=== PATIENT | male | born 1945 | race Caucasian/White ===

== ENCOUNTER 2018-02-07 08:45 | Day surgery (SDC) | payer MEDICARE, OTHER ==
[~2018-02-07] VITALS: Ht 188 cm; Wt 61.2 kg
[~2018-02-07 08:45] MED LIST: ACET325 PO; ACIDOPHILUS PO; ALBU3IS INH; ALBU90OI6 INH; ALLO100 PO; ALPR.25 PO; AMOX875; AMOX875 PO; ASCO250CH PO; ASCO500 PO; ASPI81CH PO; ATOR10; ATOR10 PO; AZIT500 PO; BISA10S PR; BUME1 PO; BUME2 PO; CAL PO; CEFA500 PO; CEPH500 PO; CHOL10002 PO; CIPDEXSU LEFTEAR; CITA20 PO; CRUTCH3 USE; CVS DISPOSABLE399 ML; CYCL10 PO; Coumadin3 MG PO; DIPATR PO; DOXA2 PO; Dulcolax Stool100 MG PO; ENOX100I SC; ENOX120I SQ; ENOX40I SQ; ESOM20; ESOM20 PO; FENT25TP TOP; FERR325 PO; FISH1000 PO; FLORASTOR PO; FLUC100 PO; FLUT.05NI; FURO100EL GT; FURO20; FURO20 PO; FURO40 PO; GABA100 PO; GENTAMICIN; GLIM2 PO; GLIP5 PO; GLUCAGON IM; HYDACE10B PO; HYDACE5; HYDACE7.5 PO; INLYTA1 MG PO; INLYTA5 MG PO; INSLI100I SC; INSN100I SC; INSUASPI; INSUASPI SC; INSULANI SC; INSULIN NPH SQ; LACT10SY PO; LEVFLO500; LEVFLO500 PO; LEVO750 PO; LIDO2L MT; LISI10 PO; LISI20; LOPE2C PO; LORA.5 PO; LORA10ER PO; LORA2L PO; LUBRICATING; MAGGLU250; MAGGLU250 PO; MENTHOL; METF500; METO2.5 PO; METO5A PO; MIDO5 PO; MOM PO; MORP20ER PO; MULVITMIND PO; NYST100SU MT; Novolog100 UNIT/2 SC; OMEG1CAP30 PO; OMEP20ER PO; OXYACE10; OXYACE5T PO; OXYC1L PO; OXYC5 PO; POLY17UD; POLY17UD PO; POTA10T; POTA10T PO; POTA20LUD GT; POTA20LUD PO; POTCHL10ER PO; PROM25 PO; RXONDA4ODT MM; RXPROM25 PO; SENN8.8S8 PO; SIME40L PO; SPIR25 PO; SUTENT; SUTENT PO; TAMS.4ER; TAMS.4ER PO; TYLENOL; WARF10; WARF10 PO; WARF2 PO; WARF4 PO; WARF5; WARF5 PO; WARF6 PO; WARF7.5; WARF7.5 PO; WARFARIN; ZINC OXIDE; ZINC15 PO; Zithromax250 MG PO; [UNRECOGNIZED DRUG - REMARK]
[2018-02-07] MEDS ORDERED: [UNRECOGNIZED DRUG - OTHER] IM (10:06)
[2018-02-07] MEDS ORDERED: MIRT15 PO (10:07)
== END 2018-02-07 13:27 | disposition home or self-care (01) ==
LOC: ORSCMMR 08:45 → ORD 10:45 → ORSCMMR 10:45
PROVIDERS: Surgery
PROC: 02HV33Z Insertion of Infusion Device into Superior Vena Cava, Percutaneous Approach (ICD-10-PCS; principal; 2018-02-07 10:45)
DX: C64.2 Malignant neoplasm of left kidney, except renal pelvis (principal); C77.5 Secondary and unspecified malignant neoplasm of intrapelvic lymph nodes; I25.2 Old myocardial infarction; E11.9 Type 2 diabetes mellitus without complications; J44.9 Chronic obstructive pulmonary disease, unspecified; Z87.891 Personal history of nicotine dependence; Z79.899 Other long term (current) drug therapy
CPT/HCPCS: 77001; 82947; C1788; J0690; J1642; J3010; J7120

== ENCOUNTER 2018-06-03 09:55 | Day surgery (SDC) | payer MEDICARE, OTHER ==
[~2018-06-03] VITALS: Ht 185.4 cm; Wt 61.2 kg
[~2018-06-03 09:55] MED LIST changes: +Desyrel50 MG PO; +Flonase 0.05% N16 GM; +Ipratr-Albuterol3 ML INH; +MIRT15 PO; +Norco 10-325 T1 EACH PO; +Novolin R100 UNIT/M SC; +PREDNISONE; +SIMV10 PO; +[UNRECOGNIZED DRUG - OTHER] IM
== END 2018-06-03 23:38 | disposition home or self-care (01) ==
LOC: ORSCMMR 09:55 → ORD 09:55 → ORSCMMR 09:56 → ORD 12:00
PROVIDERS: Surgery
PROC: 0DJ08ZZ Inspection of Upper Intestinal Tract, Via Natural or Artificial Opening Endoscopic (ICD-10-PCS; principal; 2018-06-03 10:00)
DX: R13.10 Dysphagia, unspecified (principal); C64.2 Malignant neoplasm of left kidney, except renal pelvis; C78.7 Secondary malignant neoplasm of liver and intrahepatic bile duct; E11.9 Type 2 diabetes mellitus without complications; Z86.718 Personal history of other venous thrombosis and embolism; Z87.891 Personal history of nicotine dependence; Z79.82 Long term (current) use of aspirin; Z79.4 Long term (current) use of insulin; Z79.899 Other long term (current) drug therapy
CPT/HCPCS: 74018; 82947; J0690; J1642; J2250; J3010; J7120

== ENCOUNTER 2018-06-21 20:45 | Emergency (ER) | payer MEDICARE, OTHER ==
[~2018-06-21] VITALS: Ht 185.4 cm; Wt 65.8 kg
== END 2018-06-21 23:29 | disposition home or self-care (01) ==
LOC: ER 20:45
DX: K94.23 Gastrostomy malfunction (principal); F06.4 Anxiety disorder due to known physiological condition; E11.9 Type 2 diabetes mellitus without complications; Z88.8 Allergy status to other drugs, medicaments and biological substances; Z88.5 Allergy status to narcotic agent; Z79.899 Other long term (current) drug therapy; Z79.82 Long term (current) use of aspirin; Z86.73 Personal history of transient ischemic attack (TIA), and cerebral infarction without residual deficits; Z86.711 Personal history of pulmonary embolism; Z87.891 Personal history of nicotine dependence
CPT/HCPCS: 71045; 99284-25

== ENCOUNTER 2018-06-22 07:08 | Emergency (ER) | payer MEDICARE, OTHER ==
[~2018-06-22] VITALS: Ht 185.4 cm; Wt 63.5 kg
== END 2018-06-22 08:15 | disposition home or self-care (01) ==
LOC: ER 07:08
DX: Z43.1 Encounter for attention to gastrostomy (principal); E11.9 Type 2 diabetes mellitus without complications; Z88.8 Allergy status to other drugs, medicaments and biological substances; Z88.5 Allergy status to narcotic agent; Z79.899 Other long term (current) drug therapy; Z79.82 Long term (current) use of aspirin; Z79.4 Long term (current) use of insulin; Z86.73 Personal history of transient ischemic attack (TIA), and cerebral infarction without residual deficits; Z86.711 Personal history of pulmonary embolism; Z87.891 Personal history of nicotine dependence
CPT/HCPCS: 99282-25

== ENCOUNTER 2018-07-03 04:51 | Emergency (ER) | payer MEDICARE, OTHER ==
[~2018-07-03] VITALS: Ht 185.4 cm; Wt 57.1 kg
== END 2018-07-03 08:04 | disposition home or self-care (01) ==
LOC: ER 04:51
DX: Z43.1 Encounter for attention to gastrostomy (principal); C64.9 Malignant neoplasm of unspecified kidney, except renal pelvis; E11.9 Type 2 diabetes mellitus without complications; Z88.8 Allergy status to other drugs, medicaments and biological substances; Z88.5 Allergy status to narcotic agent; Z79.899 Other long term (current) drug therapy; Z79.84 Long term (current) use of oral hypoglycemic drugs; Z79.4 Long term (current) use of insulin; Z87.891 Personal history of nicotine dependence
CPT/HCPCS: 71045; 99283-25

== ENCOUNTER 2018-07-15 05:22 | Emergency (ER) | payer MEDICARE, OTHER ==
[~2018-07-15] VITALS: Ht 185.4 cm; Wt 57.6 kg
[~2018-07-15 05:22] MED LIST changes: +OMEPRAZOLE MAGN20 MG PO
[2018-07-15] MEDS ORDERED: OPDIVO100 MG/10 IV (17:03)
== END 2018-07-15 06:32 | disposition home or self-care (01) ==
LOC: ER 05:22
DX: Z43.1 Encounter for attention to gastrostomy (principal); E11.9 Type 2 diabetes mellitus without complications; Z88.8 Allergy status to other drugs, medicaments and biological substances; Z88.5 Allergy status to narcotic agent; Z79.899 Other long term (current) drug therapy; Z79.82 Long term (current) use of aspirin; Z79.4 Long term (current) use of insulin; Z86.73 Personal history of transient ischemic attack (TIA), and cerebral infarction without residual deficits; Z87.891 Personal history of nicotine dependence
CPT/HCPCS: 99283-25

== ENCOUNTER 2018-07-15 16:43 | Inpatient (IN) | payer MEDICARE, OTHER ==
[~2018-07-15] VITALS: Ht 185.4 cm; Wt 64.6 kg
[2018-07-15] MEDS ORDERED: OPDIVO100 MG/10 IV (17:03)
[2018-07-15 18:18] LABS: BASOPHILS ABSOLUTE AUTO 0.01 K/mm3 (0.00-0.23); BASOPHILS PERCENT AUTO 0 % (0-2); EOSINOPHILS PERCENT AUTO 5 % (0-6); Hematocrit 37.9 % (37.0-53.0); Hemoglobin 11.9 g/dL (13.5-17.5); IMMATURE GRAN ABSOLUTE AUTO 0.07 K/mm3 (0.00-0.10); IMMATURE GRAN PERCENT AUTO 1 % (0-1); LYMPHOCYTES ABSOLUTE AUTO 0.96 K/mm3 (0.84-5.20); LYMPHOCYTES PERCENT AUTO 16 % (21-46); MONOCYTES ABSOLUTE AUTO 0.35 K/mm3 (0.16-1.47); MONOCYTES PERCENT AUTO 6 % (4-13); Mean Corpuscular HGB 29.5 pg (26.0-34.0); Mean Corpuscular HGB Conc 31.4 g/dL (31.5-36.5); Mean Corpuscular Volume 94 fL (80-100); Mean Platelet Volume 9.1 fL (9.1-12.4); NEUTROPHILS ABSOLUTE AUTO 4.38 K/mm3 (1.96-9.15); NEUTROPHILS PERCENT AUTO 72 % (41-73); Platelet Count 239 K/mm3 (150-400); RDW Coefficient Variation 15.7 % (11.7-14.2); RDW Standard Deviation 54.4 fL (35.1-46.3); Red Blood Cell Count 4.03 M/mm3 (4.30-5.90); White Blood Cell Count 6.07 K/mm3 (4.00-11.30)
[2018-07-15 18:37] LABS: Alanine Aminotransfer (ALT/SGP 25 U/L (12-78); Albumin, Blood 2.6 g/dL (3.4-5.0); Albumin/Globulin Ratio 0.7 (0.8-1.8); Alk Phos 64 U/L (50-136); Anion Gap 7 mmol/L (6-16); Aspartate Aminotrans (AST/SGOT 19 U/L (12-37); Bilirubin, Total 0.6 mg/dL (0.1-1.0); Blood Urea Nitrogen 22 mg/dL (8-24); Bun/Creatinine Ratio 33.2 (12.0-20.0); CO2, Blood 27 mmol/L (21-32); Calcium, Blood 8.6 mg/dL (8.5-10.1); Chloride, Blood 110 mmol/L (98-108); Creatinine, Blood 0.66 mg/dL (0.60-1.20); Globulin, Blood 3.8 g/dL (2.2-4.0); Glomerular Filtration Rate >60 (60-); Glucose, Blood 92 mg/dL (70-99); Sodium, Blood 144 mmol/L (136-145); Total Protein, Blood 6.4 g/dL (6.4-8.2)
[2018-07-16 04:20] LABS: Hemoglobin 11.7 g/dL (13.5-17.5); Mean Corpuscular HGB 29.5 pg (26.0-34.0); Mean Corpuscular HGB Conc 30.8 g/dL (31.5-36.5); Mean Corpuscular Volume 96 fL (80-100); Mean Platelet Volume 9.3 fL (9.1-12.4); Platelet Count 221 K/mm3 (150-400); RDW Coefficient Variation 15.8 % (11.7-14.2); RDW Standard Deviation 56.1 fL (35.1-46.3); Red Blood Cell Count 3.96 M/mm3 (4.30-5.90)
[2018-07-16 04:42] LABS: LDL/HDL RATIO 0.9; Very Low Density Lipoprot Chol 14 mg/dL (6-32)
[2018-07-16 04:43] LABS: Alanine Aminotransfer (ALT/SGP 26 U/L (12-78); Albumin, Blood 2.6 g/dL (3.4-5.0); Albumin/Globulin Ratio 0.7 (0.8-1.8); Alk Phos 62 U/L (50-136); Anion Gap 7 mmol/L (6-16); Aspartate Aminotrans (AST/SGOT 16 U/L (12-37); Bilirubin, Total 0.7 mg/dL (0.1-1.0); Blood Urea Nitrogen 18 mg/dL (8-24); Bun/Creatinine Ratio 24.3 (12.0-20.0); CHOL/HDL RATIO 2.3; CO2, Blood 28 mmol/L (21-32); Calcium, Blood 8.3 mg/dL (8.5-10.1); Chloride, Blood 113 mmol/L (98-108); Cholesterol 80 mg/dL (50-200); Creatinine, Blood 0.74 mg/dL (0.60-1.20); Globulin, Blood 3.8 g/dL (2.2-4.0); Glomerular Filtration Rate >60 (60-); Glucose, Blood 70 mg/dL (70-99); HDL Cholesterol 35 mg/dL (>39); Low Density Lipoprotein Chol 31 mg/dL (0-110); Potassium, Blood 3.7 mmol/L (3.5-5.5); Sodium, Blood 148 mmol/L (136-145); Total Protein, Blood 6.4 g/dL (6.4-8.2); Triglycerides 72 mg/dL (30-160)
[2018-07-17 05:32] LABS: Hematocrit 40.6 % (37.0-53.0); Hemoglobin 12.5 g/dL (13.5-17.5); Mean Corpuscular HGB 30.1 pg (26.0-34.0); Mean Corpuscular HGB Conc 30.8 g/dL (31.5-36.5); Mean Corpuscular Volume 98 fL (80-100); Mean Platelet Volume 10.3 fL (9.1-12.4); Platelet Count 185 K/mm3 (150-400); RDW Standard Deviation 57.1 fL (35.1-46.3); Red Blood Cell Count 4.15 M/mm3 (4.30-5.90); White Blood Cell Count 7.14 K/mm3 (4.00-11.30)
[2018-07-17 06:18] LABS: Anion Gap 7 mmol/L (6-16); Blood Urea Nitrogen 16 mg/dL (8-24); Bun/Creatinine Ratio 23.1 (12.0-20.0); CO2, Blood 25 mmol/L (21-32); Calcium, Blood 8.2 mg/dL (8.5-10.1); Chloride, Blood 114 mmol/L (98-108); Creatinine, Blood 0.69 mg/dL (0.60-1.20); Glomerular Filtration Rate >60 (60-); Glucose, Blood 68 mg/dL (70-99); Magnesium, Blood 2.2 mg/dL (1.6-2.4); Phosphorus, Blood 3.4 mg/dL (2.5-4.9); Potassium, Blood 4.1 mmol/L (3.5-5.5); Sodium, Blood 146 mmol/L (136-145)
[2018-07-18 05:26] LABS: Hematocrit 36.1 % (37.0-53.0); Hemoglobin 11.4 g/dL (13.5-17.5); Mean Corpuscular HGB 30.7 pg (26.0-34.0); Mean Corpuscular HGB Conc 31.6 g/dL (31.5-36.5); Mean Corpuscular Volume 97 fL (80-100); Mean Platelet Volume 9.4 fL (9.1-12.4); Platelet Count 196 K/mm3 (150-400); RDW Coefficient Variation 15.9 % (11.7-14.2); RDW Standard Deviation 57.2 fL (35.1-46.3); Red Blood Cell Count 3.71 M/mm3 (4.30-5.90); White Blood Cell Count 8.23 K/mm3 (4.00-11.30)
[2018-07-18 05:44] LABS: Anion Gap 7 mmol/L (6-16); Blood Urea Nitrogen 15 mg/dL (8-24); Bun/Creatinine Ratio 23.2 (12.0-20.0); CO2, Blood 25 mmol/L (21-32); Calcium, Blood 7.8 mg/dL (8.5-10.1); Chloride, Blood 112 mmol/L (98-108); Creatinine, Blood 0.65 mg/dL (0.60-1.20); Glomerular Filtration Rate >60 (60-); Glucose, Blood 75 mg/dL (70-99); Potassium, Blood 4.3 mmol/L (3.5-5.5); Sodium, Blood 144 mmol/L (136-145)
[2018-07-19] MEDS ORDERED: Augmentin 875-1 EACH PO (09:40)
== END 2018-07-19 13:05 | disposition home or self-care (01) | DRG 177 ==
LOC: ER 16:43 → PCU 20:24 → MEDS 07-16 15:30 → EDPENDDIS 07-19 09:00 → ENPENDDIS 07-19 09:00 → MEDS 07-19 13:05
PROVIDERS: Emergency Medicine; Internal Medicine
DX: J69.0 Pneumonitis due to inhalation of food and vomit (principal); E43 Unspecified severe protein-calorie malnutrition; E87.0 Hyperosmolality and hypernatremia; Z68.1 Body mass index [BMI] 19.9 or less, adult; R64 Cachexia; C64.9 Malignant neoplasm of unspecified kidney, except renal pelvis; C78.01 Secondary malignant neoplasm of right lung; I95.9 Hypotension, unspecified; R13.12 Dysphagia, oropharyngeal phase; K21.9 Gastro-esophageal reflux disease without esophagitis; N40.0 Benign prostatic hyperplasia without lower urinary tract symptoms; M10.9 Gout, unspecified; N18.3 Chronic kidney disease, stage 3 (moderate); E11.22 Type 2 diabetes mellitus with diabetic chronic kidney disease; E78.1 Pure hyperglyceridemia; R62.7 Adult failure to thrive; Z92.21 Personal history of antineoplastic chemotherapy; Z74.01 Bed confinement status; Z88.8 Allergy status to other drugs, medicaments and biological substances; Z86.73 Personal history of transient ischemic attack (TIA), and cerebral infarction without residual deficits; Z79.82 Long term (current) use of aspirin; Z79.899 Other long term (current) drug therapy; Z87.891 Personal history of nicotine dependence
CPT/HCPCS: 36415; 71046; 80048; 80053; 80061; 82947; 83605; 83735; 84100; 84145; 85025; 85027; 87040; 87081; 94760; 96365; 96367; 99285-25; J0456; J1642; J2543; J7030; J7050

== ENCOUNTER 2018-08-05 18:36 | Inpatient (IN) | payer MEDICARE, OTHER ==
[~2018-08-05] VITALS: Ht 175.3 cm; Wt 65.4 kg
[~2018-08-05 18:36] MED LIST changes: +Augmentin 875-1 EACH PO; +OPDIVO100 MG/10 IV
[2018-08-05 19:28] LABS: BASOPHILS ABSOLUTE AUTO 0.03 K/mm3 (0.00-0.23); BASOPHILS PERCENT AUTO 0 % (0-2); EOSINOPHILS ABSOLUTE AUTO 0.29 K/mm3 (0.00-0.68); EOSINOPHILS PERCENT AUTO 4 % (0-6); Hematocrit 36.3 % (37.0-53.0); Hemoglobin 11.7 g/dL (13.5-17.5); IMMATURE GRAN ABSOLUTE AUTO 0.09 K/mm3 (0.00-0.10); IMMATURE GRAN PERCENT AUTO 1 % (0-1); LYMPHOCYTES ABSOLUTE AUTO 0.99 K/mm3 (0.84-5.20); LYMPHOCYTES PERCENT AUTO 12 % (21-46); MONOCYTES ABSOLUTE AUTO 0.63 K/mm3 (0.16-1.47); MONOCYTES PERCENT AUTO 8 % (4-13); Mean Corpuscular HGB 30.3 pg (26.0-34.0); Mean Corpuscular HGB Conc 32.2 g/dL (31.5-36.5); Mean Corpuscular Volume 94 fL (80-100); Mean Platelet Volume 9.1 fL (9.1-12.4); NEUTROPHILS ABSOLUTE AUTO 6.32 K/mm3 (1.96-9.15); NEUTROPHILS PERCENT AUTO 76 % (41-73); Platelet Count 290 K/mm3 (150-400); RDW Coefficient Variation 15.6 % (11.7-14.2); RDW Standard Deviation 53.1 fL (35.1-46.3); Red Blood Cell Count 3.86 M/mm3 (4.30-5.90); White Blood Cell Count 8.35 K/mm3 (4.00-11.30)
[2018-08-05 19:55] LABS: Alanine Aminotransfer (ALT/SGP 35 U/L (12-78); Albumin, Blood 2.6 g/dL (3.4-5.0); Albumin/Globulin Ratio 0.7 (0.8-1.8); Alk Phos 75 U/L (50-136); Anion Gap 5 mmol/L (6-16); Aspartate Aminotrans (AST/SGOT 23 U/L (12-37); Bilirubin, Total 0.5 mg/dL (0.1-1.0); Blood Urea Nitrogen 27 mg/dL (8-24); Bun/Creatinine Ratio 44.5 (12.0-20.0); CO2, Blood 28 mmol/L (21-32); Calcium, Blood 8.7 mg/dL (8.5-10.1); Chloride, Blood 103 mmol/L (98-108); Creatinine, Blood 0.61 mg/dL (0.60-1.20); Globulin, Blood 3.9 g/dL (2.2-4.0); Glomerular Filtration Rate >60 (60-); Glucose, Blood 139 mg/dL (70-99); Potassium, Blood 4.6 mmol/L (3.5-5.5); Sodium, Blood 136 mmol/L (136-145); Total Protein, Blood 6.5 g/dL (6.4-8.2)
[2018-08-06] MEDS ORDERED: LORA.5 (00:18)
[2018-08-06 04:14] LABS: Hemoglobin 11.7 g/dL (13.5-17.5); Mean Corpuscular HGB Conc 31.6 g/dL (31.5-36.5); Mean Corpuscular Volume 95 fL (80-100); Mean Platelet Volume 9.1 fL (9.1-12.4); Platelet Count 217 K/mm3 (150-400); RDW Coefficient Variation 15.8 % (11.7-14.2); RDW Standard Deviation 55.1 fL (35.1-46.3)
[2018-08-06 04:33] LABS: Alanine Aminotransfer (ALT/SGP 31 U/L (12-78); Albumin, Blood 2.6 g/dL (3.4-5.0); Albumin/Globulin Ratio 0.6 (0.8-1.8); Alk Phos 65 U/L (50-136); Anion Gap 6 mmol/L (6-16); Aspartate Aminotrans (AST/SGOT 20 U/L (12-37); Bilirubin, Total 0.6 mg/dL (0.1-1.0); Blood Urea Nitrogen 22 mg/dL (8-24); Bun/Creatinine Ratio 30.3 (12.0-20.0); CO2, Blood 27 mmol/L (21-32); Calcium, Blood 8.5 mg/dL (8.5-10.1); Chloride, Blood 106 mmol/L (98-108); Creatinine, Blood 0.73 mg/dL (0.60-1.20); Glomerular Filtration Rate >60 (60-); Glucose, Blood 79 mg/dL (70-99); Potassium, Blood 4.3 mmol/L (3.5-5.5); Sodium, Blood 139 mmol/L (136-145); Total Protein, Blood 6.6 g/dL (6.4-8.2)
[2018-08-07 04:04] LABS: BASOPHILS ABSOLUTE AUTO 0.02 K/mm3 (0.00-0.23); BASOPHILS PERCENT AUTO 0 % (0-2); EOSINOPHILS ABSOLUTE AUTO 0.31 K/mm3 (0.00-0.68); EOSINOPHILS PERCENT AUTO 4 % (0-6); Hematocrit 36.7 % (37.0-53.0); Hemoglobin 11.5 g/dL (13.5-17.5); IMMATURE GRAN ABSOLUTE AUTO 0.05 K/mm3 (0.00-0.10); IMMATURE GRAN PERCENT AUTO 1 % (0-1); LYMPHOCYTES ABSOLUTE AUTO 0.72 K/mm3 (0.84-5.20); LYMPHOCYTES PERCENT AUTO 9 % (21-46); MONOCYTES ABSOLUTE AUTO 0.52 K/mm3 (0.16-1.47); MONOCYTES PERCENT AUTO 7 % (4-13); Mean Corpuscular HGB 30.1 pg (26.0-34.0); Mean Corpuscular HGB Conc 31.3 g/dL (31.5-36.5); Mean Corpuscular Volume 96 fL (80-100); Mean Platelet Volume 9.1 fL (9.1-12.4); NEUTROPHILS ABSOLUTE AUTO 6.22 K/mm3 (1.96-9.15); NEUTROPHILS PERCENT AUTO 79 % (41-73); Platelet Count 244 K/mm3 (150-400); RDW Coefficient Variation 15.7 % (11.7-14.2); RDW Standard Deviation 55.5 fL (35.1-46.3); Red Blood Cell Count 3.82 M/mm3 (4.30-5.90); White Blood Cell Count 7.84 K/mm3 (4.00-11.30)
[2018-08-07 04:21] LABS: Albumin, Blood 2.5 g/dL (3.4-5.0); Anion Gap 6 mmol/L (6-16); Blood Urea Nitrogen 27 mg/dL (8-24); CO2, Blood 28 mmol/L (21-32); Calcium, Blood 8.5 mg/dL (8.5-10.1); Chloride, Blood 107 mmol/L (98-108); Creatinine, Blood 0.63 mg/dL (0.60-1.20); Glomerular Filtration Rate >60 (60-); Glucose, Blood 91 mg/dL (70-99); Phosphorus, Blood 3.4 mg/dL (2.5-4.9); Potassium, Blood 4.2 mmol/L (3.5-5.5); Sodium, Blood 141 mmol/L (136-145)
[2018-08-08 05:12] LABS: BASOPHILS ABSOLUTE AUTO 0.01 K/mm3 (0.00-0.23); BASOPHILS PERCENT AUTO 0 % (0-2); EOSINOPHILS ABSOLUTE AUTO 0.21 K/mm3 (0.00-0.68); EOSINOPHILS PERCENT AUTO 4 % (0-6); Hematocrit 36.5 % (37.0-53.0); Hemoglobin 11.5 g/dL (13.5-17.5); IMMATURE GRAN ABSOLUTE AUTO 0.05 K/mm3 (0.00-0.10); IMMATURE GRAN PERCENT AUTO 1 % (0-1); LYMPHOCYTES ABSOLUTE AUTO 0.58 K/mm3 (0.84-5.20); LYMPHOCYTES PERCENT AUTO 10 % (21-46); MONOCYTES ABSOLUTE AUTO 0.41 K/mm3 (0.16-1.47); MONOCYTES PERCENT AUTO 7 % (4-13); Mean Corpuscular HGB 29.6 pg (26.0-34.0); Mean Corpuscular HGB Conc 31.5 g/dL (31.5-36.5); Mean Corpuscular Volume 94 fL (80-100); Mean Platelet Volume 9.3 fL (9.1-12.4); NEUTROPHILS ABSOLUTE AUTO 4.81 K/mm3 (1.96-9.15); NEUTROPHILS PERCENT AUTO 79 % (41-73); Platelet Count 216 K/mm3 (150-400); RDW Coefficient Variation 15.7 % (11.7-14.2); RDW Standard Deviation 53.7 fL (35.1-46.3); Red Blood Cell Count 3.89 M/mm3 (4.30-5.90); White Blood Cell Count 6.07 K/mm3 (4.00-11.30)
[2018-08-08 05:30] LABS: Albumin, Blood 2.5 g/dL (3.4-5.0); Anion Gap 7 mmol/L (6-16); Blood Urea Nitrogen 26 mg/dL (8-24); Bun/Creatinine Ratio 45.5 (12.0-20.0); CO2, Blood 26 mmol/L (21-32); Calcium, Blood 8.5 mg/dL (8.5-10.1); Chloride, Blood 109 mmol/L (98-108); Creatinine, Blood 0.57 mg/dL (0.60-1.20); Glomerular Filtration Rate >60 (60-); Glucose, Blood 82 mg/dL (70-99); Phosphorus, Blood 3.6 mg/dL (2.5-4.9); Potassium, Blood 3.9 mmol/L (3.5-5.5); Sodium, Blood 142 mmol/L (136-145)
[2018-08-09] MEDS ORDERED: JUVEN PACKET1 EACH PT (11:03)
[2018-08-09] MEDS ORDERED: ALBU2.5V5 INH (11:03)
[2018-08-09] MEDS ORDERED: Fruity C250 MG PT (11:04)
[2018-08-09] MEDS ORDERED: LEVO750 PT (11:05)
[2018-08-09] MEDS ORDERED: ZINC15 PT (11:05)
== END 2018-08-09 16:14 | disposition home or self-care (01) | DRG 177 ==
LOC: ER 18:36 → MEDS 21:39 → PCU 21:54 → MEDS 21:54 → PCU 21:56 → MEDS 08-07 12:15 → PCU 08-07 12:16 → ENPENDDIS 08-09 10:19 → MEDS 08-09 16:14
PROVIDERS: Emergency Medicine; Family Medicine; Internal Medicine
DX: J69.0 Pneumonitis due to inhalation of food and vomit (principal); E43 Unspecified severe protein-calorie malnutrition; G93.1 Anoxic brain damage, not elsewhere classified; R64 Cachexia; Z68.1 Body mass index [BMI] 19.9 or less, adult; L89.159 Pressure ulcer of sacral region, unspecified stage; I95.89 Other hypotension; I48.0 Paroxysmal atrial fibrillation; R13.10 Dysphagia, unspecified; E11.9 Type 2 diabetes mellitus without complications; G83.9 Paralytic syndrome, unspecified; M62.48 Contracture of muscle, other site; T82.52 Displacement of other cardiac and vascular devices and implants; K21.9 Gastro-esophageal reflux disease without esophagitis; N40.0 Benign prostatic hyperplasia without lower urinary tract symptoms; M10.9 Gout, unspecified; E78.1 Pure hyperglyceridemia; Z88.8 Allergy status to other drugs, medicaments and biological substances; Z88.5 Allergy status to narcotic agent; Z79.899 Other long term (current) drug therapy; Z79.82 Long term (current) use of aspirin; Z86.711 Personal history of pulmonary embolism; Z86.718 Personal history of other venous thrombosis and embolism; Z86.73 Personal history of transient ischemic attack (TIA), and cerebral infarction without residual deficits; Z90.5 Acquired absence of kidney; Z87.891 Personal history of nicotine dependence; Z86.74 Personal history of sudden cardiac arrest; Z85.528 Personal history of other malignant neoplasm of kidney; Z87.01 Personal history of pneumonia (recurrent); Z95.828 Presence of other vascular implants and grafts; Z79.4 Long term (current) use of insulin
CPT/HCPCS: 36415; 71046; 80053; 80069; 82947; 84145; 85025; 85027; 85379; 90686; 93005; 93010; 94640; 94667; 94760; 96374; 99285-25; G0008; J1642; J2543; J7030; J7040

== ENCOUNTER 2018-09-13 07:35 | Day surgery (SDC) | payer MEDICARE, OTHER ==
[~2018-09-13 07:35] MED LIST changes: +ALBU2.5V5 INH; +Fruity C250 MG PT; +JUVEN PACKET1 EACH PT; +LEVO750 PT; +LORA.5; +ZINC15 PT
== END 2018-09-13 11:55 | disposition home or self-care (01) ==
LOC: ATC 07:35
DX: Z74.01 Bed confinement status (principal); E11.9 Type 2 diabetes mellitus without complications; K21.9 Gastro-esophageal reflux disease without esophagitis; R13.12 Dysphagia, oropharyngeal phase; R41.89 Other symptoms and signs involving cognitive functions and awareness
CPT/HCPCS: 71045; 74230; 92611; 99212; G8996; G8997; G8998

== ENCOUNTER 2018-10-30 19:44 | Inpatient (IN) | payer MEDICARE, OTHER ==
[~2018-10-30] VITALS: Ht 185.4 cm; Wt 68.0 kg
[~2018-10-30 19:44] MED LIST changes: +FURO100EL PO; +Hydrocodone-Ap1 EA23 PO; +Tizanidine HCl2 MG PO
[2018-10-30 21:10] LABS: BASOPHILS ABSOLUTE AUTO 0.03 K/mm3 (0.00-0.23); BASOPHILS PERCENT AUTO 0 % (0-2); EOSINOPHILS ABSOLUTE AUTO 0.12 K/mm3 (0.00-0.68); EOSINOPHILS PERCENT AUTO 1 % (0-6); Hematocrit 40.7 % (37.0-53.0); Hemoglobin 12.4 g/dL (13.5-17.5); IMMATURE GRAN ABSOLUTE AUTO 0.05 K/mm3 (0.00-0.10); IMMATURE GRAN PERCENT AUTO 0 % (0-1); LYMPHOCYTES ABSOLUTE AUTO 0.43 K/mm3 (0.84-5.20); LYMPHOCYTES PERCENT AUTO 4 % (21-46); MONOCYTES ABSOLUTE AUTO 0.66 K/mm3 (0.16-1.47); MONOCYTES PERCENT AUTO 6 % (4-13); Mean Corpuscular HGB 30.2 pg (26.0-34.0); Mean Corpuscular HGB Conc 30.5 g/dL (31.5-36.5); Mean Corpuscular Volume 99 fL (80-100); Mean Platelet Volume 10.2 fL (9.1-12.4); NEUTROPHILS ABSOLUTE AUTO 9.86 K/mm3 (1.96-9.15); NEUTROPHILS PERCENT AUTO 88 % (41-73); Platelet Count 204 K/mm3 (150-400); RDW Coefficient Variation 16.6 % (11.7-14.2); RDW Standard Deviation 61.1 fL (35.1-46.3); Red Blood Cell Count 4.11 M/mm3 (4.30-5.90); White Blood Cell Count 11.15 K/mm3 (4.00-11.30)
[2018-10-30 21:27] LABS: Alanine Aminotransfer (ALT/SGP 21 U/L (12-78); Albumin, Blood 2.6 g/dL (3.4-5.0); Albumin/Globulin Ratio 0.6 (0.8-1.8); Alk Phos 98 U/L (50-136); Anion Gap 7 mmol/L (6-16); Aspartate Aminotrans (AST/SGOT 14 U/L (12-37); Bilirubin, Total 0.6 mg/dL (0.1-1.0); Blood Urea Nitrogen 34 mg/dL (8-24); Bun/Creatinine Ratio 43.2 (12.0-20.0); CO2, Blood 26 mmol/L (21-32); Calcium, Blood 8.7 mg/dL (8.5-10.1); Chloride, Blood 116 mmol/L (98-108); Creatinine, Blood 0.79 mg/dL (0.60-1.20); Globulin, Blood 4.4 g/dL (2.2-4.0); Glomerular Filtration Rate >60 (60-); Glucose, Blood 234 mg/dL (70-99); Potassium, Blood 4.2 mmol/L (3.5-5.5); Sodium, Blood 149 mmol/L (136-145)
[2018-10-30 22:53] LABS: Source, Urine Catheter
[2018-10-30 22:55] LABS: Bilirubin, Urine Neg (Neg); Blood, Urine Neg (Neg); Glucose Qualitative, Urine Neg (Neg); Ketones, Urine Neg (Neg); Leukocyte Esterase, Urine 1+ (Neg); Nitrite, Urine Neg (Neg); Protein, Urine 2+ (Neg); Specific Gravity, Urine 1.015 (1.003-1.022); Urobilinogen, Urine 2+ (Normal)
[2018-10-30 23:00] LABS: Appearance, Urine Clear (Clear); Color, Urine Yellow (P-Yellow)
[2018-10-30 23:01] LABS: Red Blood Cells, Urine 0-2 /hpf (0-2); Squamous Epithelial Cells Not Seen /hpf (Few)
[2018-10-30 23:02] LABS: Bacteria Few /hpf
[2018-10-30 23:12] LABS: Influenza A Negative (NEGATIVE); Influenza B Negative (NEGATIVE)
[2018-10-31 01:53] LABS: Adenovirus Not Detected (NOT DETECT); Bordetella pertussis Not Detected (NOT DETECT); Chlamydophila pneumoniae Not Detected (NOT DETECT); Coronavirus 229E Not Detected (NOT DETECT); Coronavirus HKU1 Not Detected (NOT DETECT); Coronavirus NL63 Not Detected (NOT DETECT); Coronavirus OC43 Not Detected (NOT DETECT); Human Metapneumovirus Not Detected (NOT DETECT); Human Rhinovirus/Enterovirus Not Detected (NOT DETECT); Influenza A/2009-H1 Not Detected (NOT DETECT); Influenza A/H1 Not Detected (NOT DETECT); Influenza A/H3 Not Detected (NOT DETECT); Influenza B Not Detected (NOT DETECT); Mycoplasma pneumoniae Not Detected (NOT DETECT); Parainfluenza Virus 1 Not Detected (NOT DETECT); Parainfluenza Virus 2 Not Detected (NOT DETECT); Parainfluenza Virus 3 Not Detected (NOT DETECT); Parainfluenza Virus 4 Not Detected (NOT DETECT); Respiratory Syncytial Virus Not Detected (NOT DETECT)
[2018-10-31 03:06] LABS: Influenza A Not Detected (NOT DETECT)
[2018-10-31 03:45] LABS: Hematocrit 40.1 % (37.0-53.0); Hemoglobin 12.2 g/dL (13.5-17.5); Mean Corpuscular HGB 30.3 pg (26.0-34.0); Mean Corpuscular HGB Conc 30.4 g/dL (31.5-36.5); Mean Corpuscular Volume 100 fL (80-100); Mean Platelet Volume 10.1 fL (9.1-12.4); Platelet Count 181 K/mm3 (150-400); RDW Coefficient Variation 16.6 % (11.7-14.2); RDW Standard Deviation 60.2 fL (35.1-46.3); Red Blood Cell Count 4.02 M/mm3 (4.30-5.90); White Blood Cell Count 9.59 K/mm3 (4.00-11.30)
[2018-10-31 04:13] LABS: Alanine Aminotransfer (ALT/SGP 22 U/L (12-78); Albumin, Blood 2.3 g/dL (3.4-5.0); Albumin/Globulin Ratio 0.5 (0.8-1.8); Alk Phos 80 U/L (50-136); Anion Gap 9 mmol/L (6-16); Aspartate Aminotrans (AST/SGOT 18 U/L (12-37); Bilirubin, Total 0.8 mg/dL (0.1-1.0); Blood Urea Nitrogen 27 mg/dL (8-24); CO2, Blood 27 mmol/L (21-32); Calcium, Blood 8.1 mg/dL (8.5-10.1); Chloride, Blood 117 mmol/L (98-108); Creatinine, Blood 0.77 mg/dL (0.60-1.20); Globulin, Blood 4.3 g/dL (2.2-4.0); Glomerular Filtration Rate >60 (60-); Glucose, Blood 142 mg/dL (70-99); Sodium, Blood 153 mmol/L (136-145); Total Protein, Blood 6.6 g/dL (6.4-8.2)
[2018-10-31 12:34] LABS: Anion Gap 8 mmol/L (6-16); Blood Urea Nitrogen 25 mg/dL (8-24); Bun/Creatinine Ratio 34.3 (12.0-20.0); CO2, Blood 25 mmol/L (21-32); Calcium, Blood 8.2 mg/dL (8.5-10.1); Chloride, Blood 119 mmol/L (98-108); Creatinine, Blood 0.73 mg/dL (0.60-1.20); Glomerular Filtration Rate >60 (60-); Glucose, Blood 112 mg/dL (70-99); Potassium, Blood 4.1 mmol/L (3.5-5.5); Sodium, Blood 152 mmol/L (136-145)
[2018-10-31 20:37] LABS: Anion Gap 7 mmol/L (6-16); Blood Urea Nitrogen 23 mg/dL (8-24); Bun/Creatinine Ratio 31.7 (12.0-20.0); CO2, Blood 26 mmol/L (21-32); Calcium, Blood 8.3 mg/dL (8.5-10.1); Chloride, Blood 113 mmol/L (98-108); Creatinine, Blood 0.73 mg/dL (0.60-1.20); Glomerular Filtration Rate >60 (60-); Glucose, Blood 126 mg/dL (70-99); Potassium, Blood 3.8 mmol/L (3.5-5.5); Sodium, Blood 146 mmol/L (136-145)
[2018-11-01 02:21] LABS: BASOPHILS ABSOLUTE AUTO 0.02 K/mm3 (0.00-0.23); BASOPHILS PERCENT AUTO 0 % (0-2); EOSINOPHILS ABSOLUTE AUTO 0.26 K/mm3 (0.00-0.68); EOSINOPHILS PERCENT AUTO 2 % (0-6); Hematocrit 34.1 % (37.0-53.0); Hemoglobin 10.2 g/dL (13.5-17.5); IMMATURE GRAN ABSOLUTE AUTO 0.06 K/mm3 (0.00-0.10); IMMATURE GRAN PERCENT AUTO 1 % (0-1); LYMPHOCYTES ABSOLUTE AUTO 0.64 K/mm3 (0.84-5.20); LYMPHOCYTES PERCENT AUTO 6 % (21-46); MONOCYTES ABSOLUTE AUTO 0.57 K/mm3 (0.16-1.47); MONOCYTES PERCENT AUTO 5 % (4-13); Mean Corpuscular HGB 29.7 pg (26.0-34.0); Mean Corpuscular HGB Conc 29.9 g/dL (31.5-36.5); Mean Corpuscular Volume 99 fL (80-100); Mean Platelet Volume 10.2 fL (9.1-12.4); NEUTROPHILS ABSOLUTE AUTO 9.21 K/mm3 (1.96-9.15); NEUTROPHILS PERCENT AUTO 86 % (41-73); Platelet Count 154 K/mm3 (150-400); RDW Coefficient Variation 16.5 % (11.7-14.2); RDW Standard Deviation 60.8 fL (35.1-46.3); Red Blood Cell Count 3.43 M/mm3 (4.30-5.90); White Blood Cell Count 10.76 K/mm3 (4.00-11.30)
[2018-11-01 02:37] LABS: Anion Gap 8 mmol/L (6-16); Blood Urea Nitrogen 26 mg/dL (8-24); Bun/Creatinine Ratio 38.9 (12.0-20.0); CO2, Blood 23 mmol/L (21-32); Calcium, Blood 7.9 mg/dL (8.5-10.1); Chloride, Blood 111 mmol/L (98-108); Creatinine, Blood 0.67 mg/dL (0.60-1.20); Glomerular Filtration Rate >60 (60-); Glucose, Blood 151 mg/dL (70-99); Magnesium, Blood 1.9 mg/dL (1.6-2.4); Phosphorus, Blood 2.5 mg/dL (2.5-4.9); Potassium, Blood 4.2 mmol/L (3.5-5.5); Sodium, Blood 142 mmol/L (136-145)
[2018-11-01 02:39] LABS: Vancomycin, Trough 12.1 ug/mL (5.0-10.0)
[2018-11-02 04:09] LABS: BASOPHILS ABSOLUTE AUTO 0.02 K/mm3 (0.00-0.23); BASOPHILS PERCENT AUTO 0 % (0-2); EOSINOPHILS ABSOLUTE AUTO 0.32 K/mm3 (0.00-0.68); EOSINOPHILS PERCENT AUTO 4 % (0-6); Hematocrit 34.2 % (37.0-53.0); Hemoglobin 10.5 g/dL (13.5-17.5); IMMATURE GRAN ABSOLUTE AUTO 0.07 K/mm3 (0.00-0.10); IMMATURE GRAN PERCENT AUTO 1 % (0-1); LYMPHOCYTES ABSOLUTE AUTO 0.54 K/mm3 (0.84-5.20); LYMPHOCYTES PERCENT AUTO 6 % (21-46); MONOCYTES ABSOLUTE AUTO 0.52 K/mm3 (0.16-1.47); MONOCYTES PERCENT AUTO 6 % (4-13); Mean Corpuscular HGB 29.6 pg (26.0-34.0); Mean Corpuscular HGB Conc 30.7 g/dL (31.5-36.5); Mean Platelet Volume 10.7 fL (9.1-12.4); NEUTROPHILS ABSOLUTE AUTO 7.59 K/mm3 (1.96-9.15); NEUTROPHILS PERCENT AUTO 84 % (41-73); Platelet Count 194 K/mm3 (150-400); RDW Coefficient Variation 15.8 % (11.7-14.2); RDW Standard Deviation 56.6 fL (35.1-46.3); Red Blood Cell Count 3.55 M/mm3 (4.30-5.90); White Blood Cell Count 9.06 K/mm3 (4.00-11.30)
[2018-11-02 04:10] LABS: Mean Corpuscular Volume 96 fL (80-100)
[2018-11-02 04:35] LABS: Magnesium, Blood 1.9 mg/dL (1.6-2.4)
[2018-11-02 04:37] LABS: Alanine Aminotransfer (ALT/SGP 14 U/L (12-78); Albumin, Blood 2.1 g/dL (3.4-5.0); Albumin/Globulin Ratio 0.6 (0.8-1.8); Alk Phos 73 U/L (50-136); Anion Gap 7 mmol/L (6-16); Aspartate Aminotrans (AST/SGOT 16 U/L (12-37); Bilirubin, Total 0.8 mg/dL (0.1-1.0); Blood Urea Nitrogen 23 mg/dL (8-24); CO2, Blood 25 mmol/L (21-32); Calcium, Blood 7.8 mg/dL (8.5-10.1); Chloride, Blood 112 mmol/L (98-108); Creatinine, Blood 0.68 mg/dL (0.60-1.20); Globulin, Blood 3.5 g/dL (2.2-4.0); Glomerular Filtration Rate >60 (60-); Glucose, Blood 169 mg/dL (70-99); Phosphorus, Blood 2.5 mg/dL (2.5-4.9); Potassium, Blood 3.8 mmol/L (3.5-5.5); Sodium, Blood 144 mmol/L (136-145); Total Protein, Blood 5.6 g/dL (6.4-8.2)
[2018-11-02 14:22] LABS: Vancomycin, Trough 15.9 ug/mL (5.0-10.0)
[2018-11-03 03:53] LABS: BASOPHILS ABSOLUTE AUTO 0.01 K/mm3 (0.00-0.23); BASOPHILS PERCENT AUTO 0 % (0-2); EOSINOPHILS ABSOLUTE AUTO 0.25 K/mm3 (0.00-0.68); EOSINOPHILS PERCENT AUTO 4 % (0-6); Hematocrit 30.1 % (37.0-53.0); Hemoglobin 9.5 g/dL (13.5-17.5); IMMATURE GRAN ABSOLUTE AUTO 0.04 K/mm3 (0.00-0.10); IMMATURE GRAN PERCENT AUTO 1 % (0-1); LYMPHOCYTES ABSOLUTE AUTO 0.53 K/mm3 (0.84-5.20); LYMPHOCYTES PERCENT AUTO 8 % (21-46); MONOCYTES ABSOLUTE AUTO 0.37 K/mm3 (0.16-1.47); MONOCYTES PERCENT AUTO 6 % (4-13); Mean Corpuscular HGB 30.2 pg (26.0-34.0); Mean Corpuscular HGB Conc 31.6 g/dL (31.5-36.5); Mean Corpuscular Volume 96 fL (80-100); Mean Platelet Volume 10.5 fL (9.1-12.4); NEUTROPHILS ABSOLUTE AUTO 5.16 K/mm3 (1.96-9.15); NEUTROPHILS PERCENT AUTO 81 % (41-73); Platelet Count 168 K/mm3 (150-400); RDW Coefficient Variation 15.8 % (11.7-14.2); RDW Standard Deviation 55.9 fL (35.1-46.3); Red Blood Cell Count 3.15 M/mm3 (4.30-5.90); White Blood Cell Count 6.36 K/mm3 (4.00-11.30)
[2018-11-03 04:10] LABS: Albumin, Blood 1.7 g/dL (3.4-5.0); Anion Gap 6 mmol/L (6-16); Blood Urea Nitrogen 23 mg/dL (8-24); Bun/Creatinine Ratio 38.5 (12.0-20.0); CO2, Blood 25 mmol/L (21-32); Calcium, Blood 7.5 mg/dL (8.5-10.1); Chloride, Blood 112 mmol/L (98-108); Glomerular Filtration Rate >60 (60-); Glucose, Blood 152 mg/dL (70-99); Magnesium, Blood 1.8 mg/dL (1.6-2.4); Phosphorus, Blood 2.2 mg/dL (2.5-4.9); Potassium, Blood 3.7 mmol/L (3.5-5.5); Sodium, Blood 143 mmol/L (136-145)
[2018-11-04 04:40] LABS: Albumin, Blood 1.9 g/dL (3.4-5.0); Anion Gap 8 mmol/L (6-16); Blood Urea Nitrogen 23 mg/dL (8-24); Bun/Creatinine Ratio 41.3 (12.0-20.0); CO2, Blood 26 mmol/L (21-32); Chloride, Blood 108 mmol/L (98-108); Creatinine, Blood 0.56 mg/dL (0.60-1.20); Glomerular Filtration Rate >60 (60-); Glucose, Blood 163 mg/dL (70-99); Phosphorus, Blood 2.8 mg/dL (2.5-4.9); Potassium, Blood 3.9 mmol/L (3.5-5.5); Sodium, Blood 142 mmol/L (136-145)
[2018-11-05 04:10] LABS: Albumin, Blood 1.7 g/dL (3.4-5.0); Anion Gap 8 mmol/L (6-16); Blood Urea Nitrogen 29 mg/dL (8-24); Bun/Creatinine Ratio 55.4 (12.0-20.0); CO2, Blood 26 mmol/L (21-32); Calcium, Blood 7.8 mg/dL (8.5-10.1); Chloride, Blood 107 mmol/L (98-108); Creatinine, Blood 0.52 mg/dL (0.60-1.20); Glomerular Filtration Rate >60 (60-); Glucose, Blood 174 mg/dL (70-99); Phosphorus, Blood 2.8 mg/dL (2.5-4.9); Potassium, Blood 3.8 mmol/L (3.5-5.5); Sodium, Blood 141 mmol/L (136-145)
[2018-11-07 07:57] LABS: Hematocrit 30.5 % (37.0-53.0); Hemoglobin 9.5 g/dL (13.5-17.5); Mean Corpuscular HGB 29.2 pg (26.0-34.0); Mean Corpuscular HGB Conc 31.1 g/dL (31.5-36.5); Mean Corpuscular Volume 94 fL (80-100); Mean Platelet Volume 10.2 fL (9.1-12.4); Platelet Count 221 K/mm3 (150-400); RDW Coefficient Variation 15.7 % (11.7-14.2); RDW Standard Deviation 54.3 fL (35.1-46.3); Red Blood Cell Count 3.25 M/mm3 (4.30-5.90); White Blood Cell Count 5.51 K/mm3 (4.00-11.30)
[2018-11-07 08:13] LABS: Anion Gap 7 mmol/L (6-16); Blood Urea Nitrogen 27 mg/dL (8-24); Bun/Creatinine Ratio 55.6 (12.0-20.0); CO2, Blood 27 mmol/L (21-32); Chloride, Blood 105 mmol/L (98-108); Creatinine, Blood 0.49 mg/dL (0.60-1.20); Glomerular Filtration Rate >60 (60-); Glucose, Blood 177 mg/dL (70-99); Potassium, Blood 4.2 mmol/L (3.5-5.5); Sodium, Blood 139 mmol/L (136-145)
[2018-11-09] MEDS ORDERED: Juven1 EACH PT (12:31)
[2018-11-09] MEDS ORDERED: BISA10S PR (12:32)
[2018-11-09] MEDS ORDERED: ASCO500 PT (12:32)
[2018-11-09] MEDS ORDERED: Milk Of Ma400 MG/5 M PO (12:33)
[2018-11-09] MEDS ORDERED: DOCU100 PO (12:33)
[2018-11-09] MEDS ORDERED: TAZICEF2 GM IV (12:34)
[2018-11-09] MEDS ORDERED: ZINC15 PT (12:34)
[2018-11-11] MEDS ORDERED: Normal Saline Fl2 ML INJ (09:16)
== END 2018-11-11 13:10 | disposition home health service (06) | DRG 871 ==
LOC: DELPENDDIS → ER 19:44 → ICUW 19:45 → MEDS 11-06 16:10 → ENPENDDIS 11-09 11:21 → MEDS 11-11 13:10
PROVIDERS: Emergency Medicine; Family Medicine; Internal Medicine; Internal Medicine Critical Care Medicine
PROC: 3E033XZ Introduction of Vasopressor into Peripheral Vein, Percutaneous Approach (ICD-10-PCS; principal; 2018-11-02)
DX: A41.9 Sepsis, unspecified organism (principal); E43 Unspecified severe protein-calorie malnutrition; J69.0 Pneumonitis due to inhalation of food and vomit; R65.21 Severe sepsis with septic shock; Z68.1 Body mass index [BMI] 19.9 or less, adult; E87.0 Hyperosmolality and hypernatremia; R64 Cachexia; G93.1 Anoxic brain damage, not elsewhere classified; C78.00 Secondary malignant neoplasm of unspecified lung; E87.1 Hypo-osmolality and hyponatremia; Z86.711 Personal history of pulmonary embolism; Z86.73 Personal history of transient ischemic attack (TIA), and cerebral infarction without residual deficits; Z90.5 Acquired absence of kidney; Z87.891 Personal history of nicotine dependence; N40.0 Benign prostatic hyperplasia without lower urinary tract symptoms; M10.9 Gout, unspecified; E86.0 Dehydration; E78.1 Pure hyperglyceridemia; L27.0 Generalized skin eruption due to drugs and medicaments taken internally; T45.1X5A Adverse effect of antineoplastic and immunosuppressive drugs, initial encounter; Y92.9 Unspecified place or not applicable; E11.65 Type 2 diabetes mellitus with hyperglycemia; Z85.528 Personal history of other malignant neoplasm of kidney; Z92.21 Personal history of antineoplastic chemotherapy; Z86.718 Personal history of other venous thrombosis and embolism; I10 Essential (primary) hypertension; K21.9 Gastro-esophageal reflux disease without esophagitis; R13.12 Dysphagia, oropharyngeal phase
CPT/HCPCS: 36415; 51702; 71045; 74018; 80048; 80053; 80069; 80202; 81001; 82947; 83605; 83735; 84100; 84145; 85025; 85027; 87040; 87070; 87077; 87081; 87086; 87186; 87205; 87486; 87493; 87581; 87633; 87798; 87804; 96365; 96367; 99285-25; J0713; J1956; J2060; J2543; J3010; J3370; J7030; J7050; J7060; J7070; P9041

== ENCOUNTER 2018-11-25 09:00 | Emergency (ER) | payer MEDICARE, OTHER ==
[~2018-11-25] VITALS: Ht 182.9 cm; Wt 72.6 kg
[~2018-11-25 09:00] MED LIST changes: +ASCO500 PT; +DOCU100 PO; +Juven1 EACH PT; +Milk Of Ma400 MG/5 M PO; +Normal Saline Fl2 ML INJ; +TAZICEF2 GM IV
[2018-11-25 10:30] LABS: Calcium, Ionized (POC) 0.94 mmol/L (1.10-1.46); Chloride (POC) 103 mmol/L (98-108); Creatinine (POC) 0.5 mg/dL (0.8-1.3); Glucose (ISTAT POC) 97 mg/dL (70-99); Hemoglobin (POC) 14.6 g/dL (13.5-17.5); Potassium (POC) 4.5 mmol/L (3.5-5.5); Sodium (POC) 138 mmol/L (135-148); Total CO2 (POC) 26 mmol/L (21-32)
== END 2018-11-25 14:25 | disposition home or self-care (01) ==
LOC: ER 09:00
PROVIDERS: Emergency Medicine
DX: Z43.1 Encounter for attention to gastrostomy (principal); J18.9 Pneumonia, unspecified organism; E86.0 Dehydration; E11.9 Type 2 diabetes mellitus without complications; Z79.899 Other long term (current) drug therapy; Z87.891 Personal history of nicotine dependence
CPT/HCPCS: 36415; 71046; 80047; 85014; 96360; 96361; 99284-25; J7120

== ENCOUNTER 2018-11-29 08:37 | Day surgery (SDC) | payer MEDICARE, OTHER | END 2018-11-29 16:05 | disposition home or self-care (01) | LOC: ATC 08:37 | DX: C64.2 Malignant neoplasm of left kidney, except renal pelvis (principal); C78.02 Secondary malignant neoplasm of left lung; C77.5 Secondary and unspecified malignant neoplasm of intrapelvic lymph nodes; E11.9 Type 2 diabetes mellitus without complications; Z79.82 Long term (current) use of aspirin; Z79.899 Other long term (current) drug therapy; Z79.4 Long term (current) use of insulin; Z88.8 Allergy status to other drugs, medicaments and biological substances | CPT/HCPCS: 71045; 99211 ==

== ENCOUNTER 2018-12-14 09:27 | Day surgery (SDC) | payer MEDICARE, OTHER ==
--- NOTE | 2018-12-14 13:53 | NUR ---
PT MEDIPORT ACCESSED PER DR DONOHUE BY TED GIBSON, PT TO ELECTRICAL ASSEMBLY SUPERVISOR, NG TUBE DC'D, J TUBE PLACED IN ABDOMEN, SITE DRESSED. MEDIPORT HEPARIN FLUSHED WITH 5O UNITS/5 MLS AND THEN DC'D BY ALEJANDRO GIBSON. BANDAID PLACED ON SITE, PT DRESSED, PLACED INTO ELECTRIC SCOOTER WITH PERSON ASSIST. PT'S RN W PT WITH TRANSPORTATION CALLED. DR CAMPOS PRESENT TO ACCESS ABDOMINAL SITE WITH INSTRUCTIONS GIVEN TO PT'S NURSE, WHO WILL CALL OFFICE TOMORROW FOR APPT WITH DR CAMPOS IN 2-3 WKS. PT'S NURSE WILL ALSO COORIDINATE WITH ONCOLOGY OPERATIONS DISPATCHER FOR FEEDINGS, HOME HEALTH TO ACCESS SITE THIS EVENING BEFORE FEEDING. PT DC'D W PT'S NURSE.
== END 2018-12-14 13:30 | disposition home or self-care (01) ==
LOC: MHTC 09:27
DX: C64.2 Malignant neoplasm of left kidney, except renal pelvis (principal); E11.9 Type 2 diabetes mellitus without complications; Z87.891 Personal history of nicotine dependence; I10 Essential (primary) hypertension; Z88.9 Allergy status to unspecified drugs, medicaments and biological substances
CPT/HCPCS: 49440; 76937; 99152; 99153; C1769; J1642; J2250; J3010; J7040; Q9967

== ENCOUNTER 2018-12-16 13:21 | Inpatient (IN) | payer MEDICARE, OTHER ==
[~2018-12-16] VITALS: Ht 185.4 cm; Wt 72.8 kg
[2018-12-16 14:10] LABS: Source, Urine Catheter
[2018-12-16 14:38] LABS: Appearance, Urine Clear (Clear); Bilirubin, Urine Neg (Neg); Blood, Urine 4+ (Neg); Color, Urine Yellow (P-Yellow); Glucose Qualitative, Urine Neg (Neg); Ketones, Urine Neg (Neg); Leukocyte Esterase, Urine 2+ (Neg); Nitrite, Urine Neg (Neg); Protein, Urine 3+ (Neg); Urobilinogen, Urine 2+ (Normal)
[2018-12-16 14:45] LABS: BASOPHILS ABSOLUTE AUTO 0.01 K/mm3 (0.00-0.23); BASOPHILS PERCENT AUTO 0 % (0-2); Hematocrit 42.7 % (37.0-53.0); LYMPHOCYTES ABSOLUTE AUTO 0.93 K/mm3 (0.84-5.20); LYMPHOCYTES PERCENT AUTO 10 % (21-46); MONOCYTES PERCENT AUTO 6 % (4-13); Mean Corpuscular HGB 30.2 pg (26.0-34.0); Mean Corpuscular HGB Conc 28.1 g/dL (31.5-36.5); Mean Corpuscular Volume 107 fL (80-100); Platelet Count 191 K/mm3 (150-400); RDW Coefficient Variation 19.2 % (11.7-14.2); RDW Standard Deviation 76.3 fL (35.1-46.3); Red Blood Cell Count 3.98 M/mm3 (4.30-5.90)
[2018-12-16 14:47] LABS: EOSINOPHILS PERCENT AUTO 0 % (0-6); IMMATURE GRAN ABSOLUTE AUTO 0.04 K/mm3 (0.00-0.10); IMMATURE GRAN PERCENT AUTO 0 % (0-1); NEUTROPHILS ABSOLUTE AUTO 8.02 K/mm3 (1.96-9.15); NEUTROPHILS PERCENT AUTO 84 % (41-73)
[2018-12-16 14:55] LABS: Squamous Epithelial Cells Rare /hpf (Few)
[2018-12-16 14:56] LABS: Bacteria Few /hpf; Hyaline Casts 0-2 /lpf (0-2); Mucus Mod (0-Heavy)
[2018-12-16 14:57] LABS: Albumin, Blood 2.1 g/dL (3.4-5.0); Albumin/Globulin Ratio 0.5 (0.8-1.8); Bun/Creatinine Ratio 42.9 (12.0-20.0); Calcium, Blood 7.7 mg/dL (8.5-10.1); Creatinine, Blood 1.98 mg/dL (0.60-1.20); Globulin, Blood 4.4 g/dL (2.2-4.0); Potassium, Blood 4.1 mmol/L (3.5-5.5); Total Protein, Blood 6.5 g/dL (6.4-8.2)
--- NOTE | 2018-12-16 17:25 | NUR ---
ADMIT TO ICU, ROOM 2, VIA GUERNEY FROM ER; DX SEPSIS 2ND TO BILAT. PNA. PATIENT WITH RENAL CA AND HAS RECEIEVED CHEMO VIA INUSTION PREVIOUSLY AND TO START PO CHEMO TX (PER SPOUSE; DR. Mary Beth PATEL IS PATIENTS' ONCOLOGIST. ALSO HAS OTHER RENAL ISSUES AND DR. PICKARD FOLLOWS PATIENT. MULTIPLE PRESSURE SORES TO BUTTOCKS/COCCYX AREAS, SEE PHOTOS; WOUND CARE DONE PER PROTOCOLS BY CAMPUS INTERVIEWS INTERN. PATIENT BED BOUND WITH CONTRACTURES TO ALL EXTREM. MONITOR SHOWS NSR WITH BBB; RATE 80'S. HYPOTENSIVE AND RECEIVING BOLUS' OF IVF'S. SEE ORDERS FOR ONGOING TX. PATIENTS' DUKE FROM HOME TO BE DC'D AND WILL REPLACE WITH TEMP PROBE DUKE. ER SENT UA SPECIMEN TO LAB ALREADY FROM CURRENT DUKE. LACTIC ACID ELEVATED AND TO BE REDRAWN. PATIENT HAS NON-ACCESSED MEDIPORT TO R ANT. CHEST. ALSO, HAS CLAMPED PEG TUBE TO MID ABD. AREA; REDRESSED AT THIS TIME. PATIENT REMAINS FULL CODE STATUS; SPOUSE STATES HE CONT. TO WANT ALL TX.
--- NOTE | 2018-12-16 18:07 | NUR ---
INSERTED DUKE CATH, 16 FR WITH TEMP PROBE. PT TOLERATED WELL, NO URINE RETURN. CLAMPED LINE AND WILL DRAW BACK SAMPLE IN 30 MINUTES.
[2018-12-16 18:16] LABS: BASOPHILS ABSOLUTE AUTO 0.02 K/mm3 (0.00-0.23); BASOPHILS PERCENT AUTO 0 % (0-2); Hematocrit 41.7 % (37.0-53.0); Hemoglobin 11.7 g/dL (13.5-17.5); LYMPHOCYTES ABSOLUTE AUTO 1.13 K/mm3 (0.84-5.20); LYMPHOCYTES PERCENT AUTO 12 % (21-46); MONOCYTES PERCENT AUTO 4 % (4-13); Mean Corpuscular HGB 30.4 pg (26.0-34.0); Mean Corpuscular HGB Conc 28.1 g/dL (31.5-36.5); Mean Corpuscular Volume 108 fL (80-100); Platelet Count 187 K/mm3 (150-400); RDW Coefficient Variation 19.1 % (11.7-14.2); RDW Standard Deviation 76.6 fL (35.1-46.3); Red Blood Cell Count 3.85 M/mm3 (4.30-5.90); White Blood Cell Count 9.15 K/mm3 (4.00-11.30)
[2018-12-16 18:19] LABS: EOSINOPHILS ABSOLUTE AUTO 0.01 K/mm3 (0.00-0.68); EOSINOPHILS PERCENT AUTO 0 % (0-6); IMMATURE GRAN ABSOLUTE AUTO 0.06 K/mm3 (0.00-0.10); IMMATURE GRAN PERCENT AUTO 1 % (0-1); NEUTROPHILS ABSOLUTE AUTO 7.53 K/mm3 (1.96-9.15); NEUTROPHILS PERCENT AUTO 82 % (41-73)
--- NOTE | 2018-12-16 18:45 | NUR ---
SUMMARY: STATUS REMAINS UNSTABLE; SBP 60'S TO 90'S; 1/2NS INFUSING AT BOLUS RATES. SPOUSE GONE HOME. PATIENT MOANS AND APPEARS UNCOMFORTABLE. FEBRILE WITH TEMP. 101.5 TO 102. PER F/C TEMP. PROBE. MULTIPLE ORDERS JUST ARRIVED FROM OUTGOING HOSPITALIST; WILL GO OVER WITH ONCOMING RN.
[2018-12-16 18:49] LABS: International Normalized Ratio 1.3; Prothrombin Time Results 13.5 Sec (9.7-11.5)
[2018-12-16] MEDS ORDERED: HYDR1TAB94 PT (19:42)
--- NOTE | 2018-12-16 20:00 | NUR ---
ASSUMED CARE OF PT, HE IS ALERT AND RESTLESS IN BED, GROSS MOTOR MOVEMENT OF EXTREMITIES X 4 IS NOTED. HE DOES NOT FOLLOW DIRECTIONS BUT DOES ATTEMPT TO PUSH THIS RN'S HANDS AWAY DURING ASSESSMENT. RESP ARE NOTED INCREASED WITH INCREASES IN AGITATION BUT SLOW TO MID 20S WHEN AT REST. SATS HIGH 90S ON ROOM AIR, LUNGS COARSE WITH DIM BASES BILAT, OCCASIONAL CONGESTED COUGH IS NOTED, NO SPUTUM IS VISUALIZED AT THIS TIME. HRR, HYPOTENSION IS NOTED, WILL CALL MD PER ORDERS, PULSES ARE FAINT BUT PALPABLE X 4 EXTREMITIES. PAS STOCKINGS PLACED PER ORDERS.
--- NOTE | 2018-12-16 20:20 | NUR ---
CALL PLACED TO JEFE RICO DEBONE SUPERVISOR FOR HOSPITALIST SERVICE REGARDING PT'S HYPOTENSION AND VASCULAR ACCESS. ORDERS RECEIVED.
--- NOTE | 2018-12-16 20:35 | NUR ---
JEFE RICO AT BEDSIDE FOR PT ASSESSMENT. ORDERS RECEIVED.
[2018-12-16 21:29] LABS: Albumin, Blood 2.1 g/dL (3.4-5.0); Anion Gap 8 mmol/L (6-16); Blood Urea Nitrogen 74 mg/dL (8-24); Bun/Creatinine Ratio 40.4 (12.0-20.0); CO2, Blood 25 mmol/L (21-32); Calcium, Blood 7.5 mg/dL (8.5-10.1); Chloride, Blood 135 mmol/L (98-108); Creatinine, Blood 1.83 mg/dL (0.60-1.20); Glomerular Filtration Rate 39 (60-); Glucose, Blood 165 mg/dL (70-99); Phosphorus, Blood 2.2 mg/dL (2.5-4.9); Potassium, Blood 3.6 mmol/L (3.5-5.5); Sodium, Blood 168 mmol/L (136-145)
--- NOTE | 2018-12-16 22:00 | NUR ---
SPOKE WITH JEFE RICO REGARDING PT'S CONTINUED HYPOTENSION AFTER MIDODRINE ADMINISTERED. ORDERS RECEIVED.
--- NOTE | 2018-12-16 23:41 | NUR ---
PT CONTINUES HYPOTENSIVE, LEVOPHED GTT HAS BEEN INCREASED TO 16 MCG/MIN, PT IS NOW ON OXYGEN AT 3 L/MIN VIA NC FOR DECREASED SATS HOWEVER SIGNAL STRENGTH HAS BEEN NOTED TO BE POOR, LUNG SOUNDS ARE UNCHANGED FROM PREVIOUS, COUGH STRENGTH HAS IMPROVED, PT IS RESTLESS AND AGITATED AND ATTEMPTS TO REMOVE BIOX PROBE UNABLE TO MAINTAIN ADEQUATE BIOX SIGNAL STRENGTH FOR ACCURATE READING. ORDERS RECEIVED.
[2018-12-17 00:09] LABS: PCO2 Arterial 29.6 mmHg (35-45); PO2 Arterial 64.7 mmHg (80-100); pH Blood Arterial 7.49 (7.35-7.45)
--- NOTE | 2018-12-17 00:12 | NUR ---
JEFE RICO AT BEDSIDE
--- NOTE | 2018-12-17 01:00 | NUR ---
HOSPITALIST JEFE REMAINS AT BEDSIDE, ORDERS RECEIVED.
[2018-12-17 01:02] LABS: Hemoglobin 10.5 g/dL (13.5-17.5); Mean Corpuscular HGB 30.3 pg (26.0-34.0); Mean Corpuscular HGB Conc 28.4 g/dL (31.5-36.5); Mean Corpuscular Volume 107 fL (80-100); Mean Platelet Volume 11.8 fL (9.1-12.4); Platelet Count 169 K/mm3 (150-400); RDW Coefficient Variation 18.9 % (11.7-14.2); RDW Standard Deviation 73.7 fL (35.1-46.3); Red Blood Cell Count 3.47 M/mm3 (4.30-5.90); White Blood Cell Count 11.65 K/mm3 (4.00-11.30)
[2018-12-17 01:06] LABS: Magnesium, Blood 2.6 mg/dL (1.6-2.4)
[2018-12-17 01:08] LABS: Thyroid Stimulating Hormone 1.83 uIU/mL (0.360-4.800)
[2018-12-17 01:29] LABS: BAND PERCENT MAN 19 % (0-8); BASOPHILS PERCENT MAN 0 % (0-2); EOSINOPHILS ABSOLUTE MAN 0.11 K/mm3 (0.00-0.68); EOSINOPHILS PERCENT MAN 1 % (0-6); LYMPHOCYTES ABSOLUTE MAN 1.39 K/mm3 (0.84-5.20); LYMPHOCYTES PERCENT MAN 12 % (21-46); MONOCYTES ABSOLUTE MAN 0.34 K/mm3 (0.16-1.47); MONOCYTES PERCENT MAN 3 % (4-13); NEUTROPHILS ABSOLUTE MAN 9.78 K/mm3 (1.96-9.15); SEG NEUTROPHILS PERCENT MAN 65 % (41-73); TOTAL CELLS COUNTED 100
[2018-12-17 01:33] LABS: Troponin I 0.067 ng/mL (0.000-0.040)
[2018-12-17 01:37] LABS: Albumin, Blood 1.9 g/dL (3.4-5.0); Albumin/Globulin Ratio 0.5 (0.8-1.8); Bilirubin, Total 1.5 mg/dL (0.1-1.0); Bun/Creatinine Ratio 40.7 (12.0-20.0); Calcium, Blood 7.4 mg/dL (8.5-10.1); Creatinine, Blood 1.67 mg/dL (0.60-1.20); Phosphorus, Blood 1.8 mg/dL (2.5-4.9); Potassium, Blood 3.2 mmol/L (3.5-5.5); Total Protein, Blood 5.9 g/dL (6.4-8.2)
--- NOTE | 2018-12-17 01:57 | NUR ---
PT TO IMAGING FOR STAT CT ABD
--- NOTE | 2018-12-17 02:25 | NUR ---
PT RETURNS TO ROOM FROM CT
--- NOTE | 2018-12-17 02:41 | NUR ---
HR IS NOTED TO HAVE DECREASED TO LOW 60S WITH BRIEF DECREASES TO MID TO UPPER 50S, DOPAMINE GTT STARTED INFUSING PER ORDERS, WILL DECREASE LEVOPHED AND MONITOR
--- NOTE | 2018-12-17 06:24 | NUR ---
PT RESTING QUIETLY THIS AM, BP IMPROVED WITH LEVOPHED GTT AT 12 MCG/MIN, VASOPRESSIN AT 0.04 UNITS/MIN, AND DOPAMINE AT 5 MCG/KG/MIN VIA ACCESSED MEDIPORT, MAINTENANCE IVF OF D5W AT 50 ML/HR FOR CORRECTION OF HYPERNATREMIA PER ORDERS WITH ZOSYN AND POTASSIUM PHOSPHATE INFUSING TO LEFT FOREARM PERIPHERAL IV ACCESS SITE. HEART RATE HAS DECREASED TO THE LOW 60S OF THIS AM AND PRIOR TO INITIATION OF DOPAMINE INFUSION PT'S HEART RATE WOULD BRIEFLY DECREASE TO THE MID TO UPPER 50S. ABD REMAINS TENDER WITH HYPOACTIVE BOWEL TONES THROUGHOUT, ABD CT SCAN COMPLETED THIS SHIFT PER ORDERS, IMAGING REPORT DISCUSSED WITH DR HERNANDEZ THIS AM AND ORDERS FOR LACTULOSE VIA G-TUBE OBTAINED, RESIDUALS CONTINUE LESS THAN 5 ML THROUGHOUT SHIFT. TEMP PROBE DUKE REMAINS IN PLACE, URINE APPEARANCE HAS IMPROVED TO CLEAR PALE YELLOW THIS AM, OUTPUT IMPROVED FOLLOWING DOPAMINE GTT INITIATION. PT IS BEGINNING TO FOLLOW DIRECTIONS OF 0545 THIS AM WELL ANSWERING YES/NO QUESTIONS INTERMITTENTLY. WOUND TO BUTTOCKS/COCCYX CONTINUES WITH DRESSING IN PLACE.
--- NOTE | 2018-12-17 07:30 | NUR ---
ASSUMED CARE OF PATIENT; SEE ASSESSMENT CHARTING FOR DETAILS. PATIENT SLEEPING; ROUSES TO TACTILE AND VERBAL STIMULI. MOANS AND BATS ARMS AT NURSING WHEN ORAL CARE ETC. BEING DONE. TONGUE WITH THICK SCABBING NOTED; ORAL CARE DONE WITH SUCTION AND SPECIAL SPONGES, ETC; A FEW PIECES OF SCAB CAME OFF; MOISTURIZER APPLIED TO TONGUE, GUMS AND LIPS. APPEARS TO UNDERSTAND WHAT IS BEING SAID BUT UNABLE TO VERBALLY COMMUICATE EXCEPT WILL LET OUT MOANS OCCASIONALLY.LUNGS COARSE T/O; COUGH OCCASIONAL AND WEAK. BIOX MID 90'S ON 3L/NC. LEVOPHED INFUSING AT 12MCG/MIN., VASOPRESSIN AT 0.04U/HR AND DOPAMINE DRIP AT 5MCG/KG/MIN. SBP 90'S AND HR 60'S. MAINT IV INFUSING WITH D5W AT 50ML/HR. KEPT OFF OF BACKSIDE D/T PRESSURE ULCERS TO COCCYX AND SACRUM; SEE PHOTOS. PEG TUBE REMAINS CLAMPED FOR NOW; USED FOR MEDS BUT OTHERWISE NPO.
[2018-12-17 09:29] LABS: Adenovirus Not Detected (NOT DETECT); Bordetella pertussis Not Detected (NOT DETECT); Chlamydophila pneumoniae Not Detected (NOT DETECT); Coronavirus 229E Not Detected (NOT DETECT); Coronavirus HKU1 Not Detected (NOT DETECT); Coronavirus NL63 Not Detected (NOT DETECT); Coronavirus OC43 Not Detected (NOT DETECT); Human Metapneumovirus Not Detected (NOT DETECT); Human Rhinovirus/Enterovirus Not Detected (NOT DETECT); Influenza A Not Detected (NOT DETECT); Influenza A/2009-H1 Not Detected (NOT DETECT); Influenza A/H1 Not Detected (NOT DETECT); Influenza A/H3 Not Detected (NOT DETECT); Influenza B Not Detected (NOT DETECT); Mycoplasma pneumoniae Not Detected (NOT DETECT); Parainfluenza Virus 1 Not Detected (NOT DETECT); Parainfluenza Virus 2 Not Detected (NOT DETECT); Parainfluenza Virus 3 Not Detected (NOT DETECT); Parainfluenza Virus 4 Not Detected (NOT DETECT); Respiratory Syncytial Virus Not Detected (NOT DETECT)
--- NOTE | 2018-12-17 09:30 | NUR ---
DR. KINNEY HERE (SURGICAL CONSULT); STATES PATIENTS CT SCAN OF ABD. SHOWS LARGE/HARD IMPACTED STOOLS UP IN COLON; IS GOING TO RESEARCH WHICH TYPE OF ENEMA WOULD BE MOST EFFECTIVE IN BREAKING DOWN LARGE HARD STOOL. SPOUSE PRESENT FOR CONVERSATION.
--- NOTE | 2018-12-17 09:50 | NUR ---
DR. MORALESTRATE HERE; SEE ORDERS.
--- NOTE | 2018-12-17 10:45 | NUR ---
DR. WEBER HERE; SPOKE TO PATIENT AND SPOUSE. PATIENT APPEARS MORE ALERT AND MAKES SOUNDS IF TO ANSWER QUESTIONS. SPOUSE STATES THIS IS HIS NORMAL; USUALLY MAKES SOUNDS FOR YES AND NO MORE CLEARLY. SEE FURTHER ORDERS.
--- NOTE | 2018-12-17 11:00 | NUR ---
FLUID CHANGED TO LR AT 100ML/HR.
--- NOTE | 2018-12-17 12:30 | NUR ---
VASOPRESSIN DC'D PER ORDER.
--- NOTE | 2018-12-17 16:00 | NUR ---
PATIENTS' EYES MORE ALERT THIS AFTERNOON. ORAL CARE DONE ABOUT EVERY 3-4 HOURS; TONGUE WITH SCABBING/ROUGH PATCHES; STARTING TO SOFTEN AND SOME PIECES COMING OFF. FLUID TO PROTOCOL MANAGER TO CLINIMAX SOLUTION; SEE ORDERS.
--- NOTE | 2018-12-17 18:00 | NUR ---
SUMMARY: ABLE TO UNDERSTAND STAFF AND ANSWER YES/NO EITHER VERBALLY OR WITH SHAKING HEAD. BATHED AND LOTIONED. CONT. WITH LACTULOSE PER PEG TUBE BUT NO STOOL. TO HAVE ENEMA THIS PM. COCCYX, SACRUM DRESSINGS INTACT; ODOR NOTED (LIKE TISSUE/ESCHAR PROBABLY SLOUGHING OFF. REMAINS ON LEVOPHED AT 10MCG/MIN AND DOPAMINE AT 5MCG/KG/MIN. CLINIMAX INFUSING AT 100ML/HR. GOOD URINE OUTPUT--ABOUT 2400ML THE PAST 12 HOURS. WILL REPORT TO ONCOMING RN.
--- NOTE | 2018-12-17 19:00 | NUR ---
ASSUMED CARE OF PT, BEDSIDE REPORT RECEIVED. PT APPEARS TO BE SLEEPING, RESP EVEN AND REGULAR, RATE MID 20S, SATS MID 90S WITH OXYGEN AT 3 L/MIN VIA NC, LUNGS REMAIN COARSE THROUGHOUT WITH DIM BASES HOWEVER IMPROVED AIR MOVEMENT COMPARED TO THIS AM IS NOTED. HRR, SINUS WITH BBB IS NOTED ON MONITOR, OCCASIONAL PVCS CONTINUE, BP IMPROVED, LEVOPHED AT 10 MCG/MIN, DOPAMINE AT 5 MCG/KG/MIN, CLINIMIX AT 100 ML/HR, PULSES REMAIN FAINT X 4 EXTREMITIES AND TRACE BILAT PEDAL/ANKLE EDEMA IS NOTED. BOWEL TONES REMAIN HYPOACTIVE, TINKLING SOUNDS ARE NOTED ON RIGHT ABD, ABD DISTENDED TENDER TO PALP, NO BM TODAY. TEMP PROBE DUKE REMAINS IN PLACE, DRAINING CLEAR YELLOW URINE TO GRAVITY, IMPROVED URINE OUTPUT CONTINUES, PT IS NOTED AFEBRILE AT THIS TIME. DRESSING TO COCCYX REMAINS IN PLACE, FOUL ODOR NOTED, WILL CHANGE WITH MINERAL OIL ENEMA ADMINISTRATION. CALL PLACED TO PHARMACY REQUESTING MINERAL OIL ENEMA BE SENT TO ICU.
[2018-12-18 03:57] LABS: Hematocrit 35.9 % (37.0-53.0); Hemoglobin 10.8 g/dL (13.5-17.5); Mean Corpuscular HGB 30.7 pg (26.0-34.0); Mean Corpuscular HGB Conc 30.1 g/dL (31.5-36.5); Mean Platelet Volume 12.2 fL (9.1-12.4); Platelet Count 161 K/mm3 (150-400); RDW Coefficient Variation 17.4 % (11.7-14.2); RDW Standard Deviation 65.7 fL (35.1-46.3); Red Blood Cell Count 3.52 M/mm3 (4.30-5.90); White Blood Cell Count 10.23 K/mm3 (4.00-11.30)
[2018-12-18 04:14] LABS: Mean Corpuscular Volume 102 fL (80-100)
[2018-12-18 04:21] LABS: Alanine Aminotransfer (ALT/SGP 18 U/L (12-78); Albumin/Globulin Ratio 0.5 (0.8-1.8); Alk Phos 86 U/L (50-136); Anion Gap 8 mmol/L (6-16); Aspartate Aminotrans (AST/SGOT 19 U/L (12-37); Bilirubin, Total 1.1 mg/dL (0.1-1.0); Blood Urea Nitrogen 50 mg/dL (8-24); CO2, Blood 23 mmol/L (21-32); Chloride, Blood 124 mmol/L (98-108); Creatinine, Blood 1.02 mg/dL (0.60-1.20); Globulin, Blood 4.4 g/dL (2.2-4.0); Glomerular Filtration Rate >60 (60-); Glucose, Blood 330 mg/dL (70-99); Potassium, Blood 3.4 mmol/L (3.5-5.5); Sodium, Blood 155 mmol/L (136-145); Total Protein, Blood 6.4 g/dL (6.4-8.2)
[2018-12-18 05:34] LABS: BAND PERCENT MAN 9 % (0-8); BASOPHILS PERCENT MAN 0 % (0-2); EOSINOPHILS PERCENT MAN 0 % (0-6); LYMPHOCYTES ABSOLUTE MAN 0.71 K/mm3 (0.84-5.20); LYMPHOCYTES PERCENT MAN 7 % (21-46); MONOCYTES PERCENT MAN 0 % (4-13); NEUTROPHILS ABSOLUTE MAN 9.51 K/mm3 (1.96-9.15); SEG NEUTROPHILS PERCENT MAN 84 % (41-73); TOTAL CELLS COUNTED 100
--- NOTE | 2018-12-18 06:08 | NUR ---
PT RESTING QUIETLY AT THIS TIME, AWAKE MOST OF THIS SHIFT. ANSWERING YES/NO QUESTIONS CONSISTENTLY THIS SHIFT. DID STATE "I'M TOO COLD" ONCE WELL "TV OFF" LUNG SOUNDS CLEARING THROUGHOUT SHIFT, SATS MAINTAINING ON ROOM AIR, PT REMOVED OXYGEN NEAR MIDNOC. HRR, ACCELERATED JUNCTIONAL RHYTHM NOTED THIS AM, RATE 60S, LEVOPHED TITRATED DOWN TO 4 MCG/MIN, DOPAMINE GTT REMAINS AT 5 MCG/KG/MIN, MAP MAINTAINING AT THIS TIME. LACTULOSE ADMIN EVERY 6 HOURS VIA G TUBE, RESIDUALS MINIMAL THIS SHIFT, LESS THAN 5 ML, ABD REMAINS TENDER TO PALP, BOWEL TONES HYPOACTIVE WITH TINKLING HEARD OVER RIGHT ABD QUADRANTS, MINERAL OIL ENEMA ADMIN AT HS PER ORDERS, PT CONTINUES WITHOUT BM. TEMP PROBE DUKE REMAINS IN PLACE, CONTINUES DRAINING CLEAR YELLOW URINE. PT TOLERATED WOUND CARE TO COCCYX WOUND AT 2130, DRESSING DRY AND INTACT THIS AM.
--- NOTE | 2018-12-18 07:30 | NUR ---
ASSUMED CARE OF PATIENT; SEE ASSESSMENT CHARTING FOR DETAILS. PATIENT STOIC; HARD TO TELL IF HE IS MAD,SAD,GLAD; STARES AT NURSE WHEN SHE IS TALKING/ASKING QUESTIONS; EYES WIDE OPENED; WILL MAKE A NOISE IN RESPONSE, SOMETIMES. APPEARS TO UNDERSTAND WHAT IS SAID. LUNGS DIMINISHED POSTERIORLY AND CLEAR ANTERIORLY. OXYGEN AT 3L/MIN VIA NC AND BIOX MID TO HIGH 90'S. MONITOR REMAINS NSR TO JUNCTIONAL RHYTHM/ACCELERATED JUNCTIONAL AT TIMES. LEVOPHED DOWN TO 4MCG/MIN AND DOPAMINE AT 5MCG/KG/MIN; SBP 90'S TO LOW 100'S; DOPAMINE REDUCED TO 4MCG/KG/MIN AT THIS TIME. DRESSINGS TO COCCYX/SACRUM INTACT. POSITIONED OFF OF BACK AT ALL TIMES.
--- NOTE | 2018-12-18 09:45 | NUR ---
DR. YUSUF MAKING ROUNDS; LANTUS INSULIN 10U BID ORDERED, EARLIER, AND WANTS 40MEQ LIQUID KCL DOWN PEG TUBE (k+LEVEL 3.4).
--- NOTE | 2018-12-18 10:05 | NUR ---
MINERAL/FLEETS ENEMA GIVEN; PATIENT PASSED GAS AND SMALL AMOUNT OF LIQUID BROWN STOOL PRIOR TO ENEMA. POSITIONED CLEAR OVER ONTO L SIDE; ENEMA GIVEN AND RN HELD 'CHEEKS' TOGETHER FOR A FEW MINUTES; NOTHING COMING OUT; PILLOW BEHIND BACK AND DEPENDS PLACED UNDER PATIENT TO ABSORB FLUID/STOOL; WILL LET ENEMA SOAK IN BOWEL FOR AWHILE.
--- NOTE | 2018-12-18 10:30 | NUR ---
SMALL AMOUNT OF STICKY BROWN STOOL NOTED; RN CLEANED RECTAL AREA AND THEN DIGITAL EXAM; FELT LARGE AMOUNT OF STICKY/UNFORMED STOOL IN RECTAL CAVITY; DIGITAL DISIMPACTION DONE; LARGE AMOUNT OF STOOL REMOVED BUT LARGE AMOUNT STILL FELT IN UPPER RECTAL REGION.
--- NOTE | 2018-12-18 11:45 | NUR ---
DR. WEBER HERE; PLANS TO MAKE GI REFERRAL TO EVALUATE AND MAYBE EVACUATE LARGE IMPACTED STOOL IN COLON; SEE FURTHER ORDERS.
--- NOTE | 2018-12-18 13:05 | NUR ---
T/C TO DR. WEST'S ANSWERING SERVICE; CONSULT INFORMATION GIVEN TO BUTTON BRADDER; SHE WILL INFORM DR. GUTIERREZ OF CONSULT, AT THIS TIME.
--- NOTE | 2018-12-18 13:45 | NUR ---
ORDERS COMING THROUGH FROM DR. GUTIERREZ FOR 2V ABD XRAY AND GOLYTELY TO BE GIVEN; RN WILL GIVE VIA PEG TUBE.
--- NOTE | 2018-12-18 14:30 | NUR ---
UNABLE TO DO 2 VIEW ABD XRAY IN PATIENTS' ROOM; WOULD NEED TO GO TO RADIOLOGY DEPT. RN SPOKE WITH DR. GUTIERREZ TO SEE IF 1VIEW-PORT. XRAY ADEQUATE; INQUIRED IF HE WAS AWARE OF CT OF ABD. ALREADY COMPLETED. PHYSICIAN STATES IT IS OKAY TO DO PORTABLE/1 VIEW. GOLYTELY CAN BE GIVEN VIA PEG TUBE, ALSO.
--- NOTE | 2018-12-18 18:49 | NUR ---
SUMMARY: LEVOPHED DRIP AT 3MCG/MIN AND DOPAMINE GTT AND 4MCG/KG/MIN; SBP 90'S. OXYGEN AT 3L/NC AND BIOS MID TO HIGH 90'S. RECEIVING GOLYTELY AT 300ML/HR SINCE ABOUT 1500 (INFUSING VIA KANGAROO PUMP; PATIENT APPLEARS TO BE TOLERATING FLUID; TO RECEIVE TOTAL OF 4 LITERS GOLYTELY. CLINIMAX AND FAT EMULSION (20%) INFUSING FOR NUTRITION. AFEBRILE AND OVERALL IMPROVED TODAY. DUKE OUTPUT 750ML/LT. YELLOW. WILL REPORT TO ONCOMING RN.
--- NOTE | 2018-12-18 19:10 | NUR ---
ASSUMED CARE OF PT, BEDSIDE REPORT RECEIVED. PT IS RESTING QUIETLY RECLINING IN BED AND POSITIONED ON LEFT SIDE. HE IS ALERT AND TRACKING IN ROOM AND ATTEMPTS TO SPEAK WITH STAFF AT BEDSIDE. SPEECH IS NOTED SLOW AND SLURRED, DIFFICULT TO UNDERSTAND, PT STATES "I FEEL ROUGH" ANSWERS YES WHEN ASKED IF HIS ABD IS LOCATION OF HIS DISCOMFORT. HE DENIES OTHER NEEDS/AREAS OF DISCOMFORT AT THIS TIME. LUNGS CONTINUE COARS THROUGHOUT WITH DIM BASES, COUGH STRENGTH CONTINUES TO IMPROVE, MAINTAINING SATS ON ROOM AIR, RESP RATE CONTINUES 20-30 AT THIS TIME. HRR, PT IS NOTED TO BE INTERMITTENTLY IN SINUS RHYTHM ALTERNATING WITH ACCELERATED JUNCTIONAL RHYTHM, MAP IS CURRENTLY 71 WITH LEVOPHED AT 3 MCG/MIN AND DOPAMINE AT 4 MCG/KG/MIN TO RIGHT CHEST WALL MEDIPORT. BOWEL TONES NORMOACTIVE AT THIS TIME, ABD REMAINS TENDER TO PALP AND DISTENDED, GOLYTELY TO G-TUBE PER GI FOR FECAL IMPACTION, INFUSING VIA KANGAROO PUMP AT 300 ML/HR. TEMP PROBE DUKE REMAINS IN PLACE DRAINING CLEAR YELLOW URINE TO GRAVITY.
--- NOTE | 2018-12-18 20:18 | NUR ---
CALL PLACED TO PHARMACY REGARDING 2000 LEVAQUIN, STATES THAT HE IS AWAITING TROUGH LEVEL PRIOR TO DISPENSING 2000 DOSE. CLARIFIED THAT TROUGH LEVEL IS ORDERED FOR 12/19/18 AT 1900. PHARMACIST STATES THAT HE WILL ENTER [facility] TROUGH ORDERS FOR NOW.
[2018-12-18 21:14] LABS: Vancomycin, Trough 10.8 ug/mL (5.0-10.0)
[2018-12-19 05:05] LABS: BASOPHILS PERCENT AUTO 0 % (0-2); EOSINOPHILS PERCENT AUTO 0 % (0-6); Hematocrit 32.5 % (37.0-53.0); Hemoglobin 9.8 g/dL (13.5-17.5); IMMATURE GRAN ABSOLUTE AUTO 0.02 K/mm3 (0.00-0.10); IMMATURE GRAN PERCENT AUTO 0 % (0-1); LYMPHOCYTES ABSOLUTE AUTO 0.48 K/mm3 (0.84-5.20); LYMPHOCYTES PERCENT AUTO 8 % (21-46); MONOCYTES ABSOLUTE AUTO 0.12 K/mm3 (0.16-1.47); MONOCYTES PERCENT AUTO 2 % (4-13); Mean Corpuscular HGB Conc 30.2 g/dL (31.5-36.5); Mean Platelet Volume 12.5 fL (9.1-12.4); NEUTROPHILS PERCENT AUTO 90 % (41-73); Platelet Count 112 K/mm3 (150-400); RDW Coefficient Variation 16.9 % (11.7-14.2); Red Blood Cell Count 3.27 M/mm3 (4.30-5.90); White Blood Cell Count 5.92 K/mm3 (4.00-11.30)
[2018-12-19 05:14] LABS: Albumin, Blood 1.8 g/dL (3.4-5.0); Anion Gap 11 mmol/L (6-16); Blood Urea Nitrogen 47 mg/dL (8-24); Bun/Creatinine Ratio 52.2 (12.0-20.0); CO2, Blood 22 mmol/L (21-32); Calcium, Blood 7.8 mg/dL (8.5-10.1); Chloride, Blood 124 mmol/L (98-108); Glomerular Filtration Rate >60 (60-); Glucose, Blood 215 mg/dL (70-99); Phosphorus, Blood 2.7 mg/dL (2.5-4.9); Potassium, Blood 2.7 mmol/L (3.5-5.5); Sodium, Blood 157 mmol/L (136-145); Triglycerides 72 mg/dL (30-160)
[2018-12-19 05:20] LABS: Mean Corpuscular Volume 99 fL (80-100)
--- NOTE | 2018-12-19 06:37 | NUR ---
PT RESTS QUIETLY THIS SHIFT, DID APPEAR TO SLEEP APPROX 4 HOURS OF THIS TIME. DISCUSSED PAIN CONTROL MEASURES WITH JEFE RICO VETERINARY BACTERIOLOGIST SUPERVISOR BLOOMING MILL FOR HOSPITALIST SERVICE LAST EVENING AND FENTANYL 12.5 MCG IV WAS ORDERED. PT DID ANSWER YES WHEN ASKED IF THE FENTANYL PROVIDED PAIN RELIEF TO COCCYX WOUNDS DURING CLEANING OF INCONT BOWEL MOVEMENTS. PT CONTINUES INTERMITTENTLY SINUS RHYTHM ALTERNATING WITH ACCELERATED JUNCTIONAL, OCCASIONAL PVCS NOTED THIS SHIFT, AM POTASSIUM LEVEL NOTED AT 2.7, DR WEBER NOTIFIED OF RESULTS AND POTASSIUM 40 MEQ IV ORDERED, 1ST 20 MEQ BAG IS INFUSING AT THIS TIME, LEVOPHED TITRATED DOWN TO 2 MCG/MIN THIS SHIFT, DOPAMINE REMAINS AT 4 MCG/KG/MIN, PRESSURES MAINTAINING MAP PER ORDERS. LUNGS CONTINUE COARSE WITH DIM BASES PT MAINTAINS SATS ON ROOM AIR THROUGHOUT SHIFT. ABD CONTINUES TENDER TO PALP, ABLE TO PALPATE OUTLINE OF FECAL IMPACTION, GOLYTELY CONTINUES TO INFUSE VIA G TUBE AT 50 ML/HR WITH 50 ML/HR FLUSH VIA TUBE FEEDING PUMP, RESIDUALS CONTINUE MINIMAL. PT HAS BEEN INCONT OF LOOSE TO LIQUID STOOL FREQUENTLY THIS SHIFT, SMALL PARTICLES OF FORMED STOOL HAVE BEEN PRESENT X 2. WOUND TO COCCYX/SACRAL AREA IS PAINFUL WITH SKIN CARE, MEPILEX DRESSINGS UNABLE MAINTAIN ADEQUATE SEAL AGAINST STOOL, LARGE AMOUNTS OF BARRIER CREAM APPLIED WITH EACH CLEANING, DOUGHNUT PILLOW WRAPPED IN OB PADS PLACED UNDER PT POSITIONED SUCH THAT LIQUID STOOL IS NOT IN IMMEDIATE CONTACT WITH PT'S WOUNDS.
--- NOTE | 2018-12-19 07:56 | NUR ---
ASSUMED CARE AT 0715 REPORT FROM JULIO GARCÍA RN. LARGE LIQUID STOOL CLEANED VERY CAREFULLY FROM BLEEDING BOTTOM. JULIO DIGITALLY DISEMPACTED SOME PASTY STOOL AND PLACED FLEXISEAL IN AN ATTEMPT TO CONTAIN STOOL AWAY FROM EXCORIATED SKIN. PLASTIC DONUT COVERED WITH PADS PLACED IN ATTEMPT TO DRAIN ANY LEAKAGE AWAY FROM SKIN. COPIOUS NUTRASHIELD APPLIED. FENTANYL IV GIVEN FOR PAIN MANAGEMENT. WARM BLANKETS X2 AFTTER. IN
--- NOTE | 2018-12-19 08:07 | NUR ---
MD VISIT DR. GUTIERREZ IN
--- NOTE | 2018-12-19 18:13 | NUR ---
Met with spouse, Lia, at bedside, She is deeply hoahaoism and takes great comfort from her Catholicism. She has taken care of Guille for decades and beleives her will recover from current illness. This family's Cheondoism artur tells them that human life, in any form, is valuable. It is doubtful she will ever allow a code status change for Guille. That said, Lia spoke at length about her involvement with the local talking rock and her profound devotion to God's plan. I provided emotional/spiritual affirmation and prayer. Pt was non-verbal and slept throughout conversation. He appears comfortable and well cared-for. I will remain available.
--- NOTE | 2018-12-19 19:09 | NUR ---
PATIENT CLEANED AGAIN. LEAKING AROUND FLEXISEAL. REPORT GIVEN TO JULIO GARCÍA RN
--- NOTE | 2018-12-19 19:10 | NUR ---
LATE ENTRY: DR. GUTIERREZ IN AND ORDERED LACTULOSE HELD AND GO-LYTELY ORDERED
--- NOTE | 2018-12-19 19:10 | NUR ---
ASSUMED CARE OF PT, BEDSIDE REPORT RECEIVED. PT IS RESTING QUIETLY AND RECLINING IN BED. HE ANSWERS YES/NO QUESTIONS CONSISTENTLY ALTHOUGH IS NOTED SLOW TO RESPOND, INTERVALS OF 30 SECONDS PRIOR TO REPLY ARE COMMON. HE DOES VERBALIZE FEW WORD ANSWERS OCCASIONALLY, SPEECH IS SLURRED AND DIFFICULT TO UNDERSTAND. LUNGS ARE CLEAR WITH DIM BASES BILAT, MAINTAINING SATS ON ROOM AIR, RATE 20-30. HRR, CONTINUES WITH BBB INTERMITTENT JUNCTIONAL RHYTHM CONTINUES, LEVOPHED IS NOTED AT 2 MCG/MIN, DOPAMINE AT 4 MCG/KG/MIN, PT PRESSURES ARE MAINTAINING PER PARAMETERS, WILL CONTINUE TO TITRATE DOWN ABLE. ABD REMAINS DISTENDED WITH PALPABLE FECAL IMPACTION TO RIGHT ABD, BOWEL TONES ARE NORMOACTIVE AT THIS TIME, RECTAL TUBE IS NOTED IN PLACE, PER DAY SHIFT RN, LIQUID STOOL CONTINUES TO DRAIN AROUND RECTAL TUBE, WILL DC IT HAS BEEN INEFFECTIVE IN MINIMIZING CONTAMINATION OF WOUNDS. WOUNDS TO COCCYX/SACRUM CONTINUE RED WITH SEROSANGUINOUS DRAINAGE, DARK BROWN AREA OF ESCHAR CONTINUES TO MID COCCYX WOUND, WILL CONTINUE TO COVER WOUNDS WITH COPIOUS AMOUNTS OF BARRIER CREAM MEPILEX 5 LAYER DRESSING DOES NOT ADHERE ALONG INFERIOR BORDER OF DRESSING AND ALLOWS FOR STOOL TO COME INTO IMMEDIATE CONTACT WITH WOUND, WILL CONTINUE TO USE DOUGHNUT COVERED WITH OB PADS THIS DID MINIMIZE WOUND'S CONTACT WITH LIQUID STOOL, ORDERS FROM DR GUTIERREZ FOR MICHEAL SECOND DOSE OF 2000 ML IS NOTED, WILL INFUSE AT 100 ML/HR VIA KANGAROO FEEDING PUMP.
--- NOTE | 2018-12-19 23:00 | NUR ---
RECTAL TUBE DC'D, LIQUID STOOL CONTINUES TO PASS AROUND TUBE AND CONTAMINATE PT'S WOUNDS.
[2018-12-20 05:28] LABS: BASOPHILS PERCENT AUTO 0 % (0-2); EOSINOPHILS PERCENT AUTO 0 % (0-6); Hematocrit 31.7 % (37.0-53.0); Hemoglobin 9.7 g/dL (13.5-17.5); IMMATURE GRAN ABSOLUTE AUTO 0.02 K/mm3 (0.00-0.10); IMMATURE GRAN PERCENT AUTO 1 % (0-1); LYMPHOCYTES PERCENT AUTO 10 % (21-46); MONOCYTES ABSOLUTE AUTO 0.13 K/mm3 (0.16-1.47); MONOCYTES PERCENT AUTO 3 % (4-13); Mean Corpuscular HGB 30.1 pg (26.0-34.0); Mean Corpuscular HGB Conc 30.6 g/dL (31.5-36.5); Mean Corpuscular Volume 98 fL (80-100); Mean Platelet Volume 12.6 fL (9.1-12.4); NEUTROPHILS ABSOLUTE AUTO 3.57 K/mm3 (1.96-9.15); NEUTROPHILS PERCENT AUTO 87 % (41-73); Platelet Count 103 K/mm3 (150-400); RDW Coefficient Variation 16.3 % (11.7-14.2); RDW Standard Deviation 59.1 fL (35.1-46.3); Red Blood Cell Count 3.22 M/mm3 (4.30-5.90); White Blood Cell Count 4.12 K/mm3 (4.00-11.30)
[2018-12-20 06:13] LABS: Albumin, Blood 1.8 g/dL (3.4-5.0); Anion Gap 10 mmol/L (6-16); Blood Urea Nitrogen 30 mg/dL (8-24); Bun/Creatinine Ratio 43.7 (12.0-20.0); CO2, Blood 23 mmol/L (21-32); Calcium, Blood 7.6 mg/dL (8.5-10.1); Chloride, Blood 118 mmol/L (98-108); Creatinine, Blood 0.69 mg/dL (0.60-1.20); Glomerular Filtration Rate >60 (60-); Glucose, Blood 165 mg/dL (70-99); Phosphorus, Blood 2.6 mg/dL (2.5-4.9); Potassium, Blood 2.8 mmol/L (3.5-5.5); Sodium, Blood 151 mmol/L (136-145)
--- NOTE | 2018-12-20 07:02 | NUR ---
PT TURNED FREQUENTLY THROUGHOUT NOC, SKIN CARE AND MAKEDA CARE PROVIDED WITH EACH TURN, COPIOUS AMOUNTS OF BARRIER CREAM APPLIED WITH EACH POSITION CHANGE. GOLYTELY CONTINUES INFUSING AT 100 ML/HR, KANGAROO PUMP IS PROGRAMMED FOR REMAINING GOLYTELY, ABD PALPATION IS UNCHANGED, BOWEL TONES REMAIN ACTIVE, LIQUID STOOL CONTINUES THROUGHOUT SHIFT. LUNGS ARE CLEAR WITH DIM BASES BILAT, MAINTAINING SATS ON ROOM AIR, RESP RATE 20-30. LEVOPHED TITRATED DOWN TO 1 MCG/MIN, DOPAMINE AT 4 MCG/KG/MIN. PT WAS NOTED TO SWING RIGHT ARM AT THIS RN THIS AM WITH BLOOD GLUCOSE ASSESSMENT, WHEN ASKED IF THERE WAS SOMETHING WRONG, HE NODDED YES, WHEN ASKED IF IT WAS SOMETHING THAT STAFF COULD FIX FOR HIM, HE NODDED YES, AFTER QUESTIONING REGARDING PAIN, WARMTH, COMFORT, HE NODDED YES TO BEING TIRED AND WANTING TO BE LEFT ALONE TO SLEEP.
--- NOTE | 2018-12-20 10:48 | NUR ---
MALE PATIENT AWAKE. OCC DELAYED VERY GARBLED SPEECH. HERE AT BEDSIDE. LEVOPHED AND DOPAMINE INFUSINGTHRU MEDIPORT. SEE ICU IV FLOW SHEET. LUNGS CLEAR BUT DIM REMBERTO.BOTTOM ON A BLOW UP PILLOW AND KEEP STOOL OFF SKIN. FLEETS OIL ENEMA FIVEN. PAT HELD VERY POORLY. CARTER INFUSING THRU PEG AT 100ML/HOUR. ON LEFT SIDE FOR ENEMA. SKIN VERY RAW AND SORE LOOKING ON COCCYX. CALIZIME CREAM APPLIED. KPHOS REPLACEMENT INFUSING.
--- NOTE | 2018-12-20 11:12 | NUR ---
TURNED TO RIGHT SIDE AFTER CLEANED UP OF LIQ STOOL. MORE COMFORTABLE AND WENT TO SLEEP.
--- NOTE | 2018-12-20 14:06 | NUR ---
PATIENT SMILES AT ME EVERTYTIME I ENTER ROOM. NO NOW STOOLS YET.
--- NOTE | 2018-12-20 15:52 | NUR ---
LOOKS VERY UNCOMFORTABLE. MED WITH FENTANYL. LEVOPHED DRIP WEANED OFF AT T5HIS TIME.
[2018-12-20 16:39] LABS: Anion Gap 10 mmol/L (6-16); Blood Urea Nitrogen 28 mg/dL (8-24); Bun/Creatinine Ratio 56.6 (12.0-20.0); CO2, Blood 25 mmol/L (21-32); Calcium, Blood 7.1 mg/dL (8.5-10.1); Chloride, Blood 116 mmol/L (98-108); Glomerular Filtration Rate >60 (60-); Glucose, Blood 134 mg/dL (70-99); Sodium, Blood 151 mmol/L (136-145)
--- NOTE | 2018-12-20 17:22 | NUR ---
DR NAIR CALLED WITH CHEM PANEL RESULTS. NEW ORDERS RECEIVED.
--- NOTE | 2018-12-20 17:53 | NUR ---
HAS LOOKED VERY IRRITATED T/O DAY. LOOSE MOIST COUGH OCC. NO STOOL THIS PM. TURNED TO HIS RIGHT SIDE. HEELS ELEVATED WITH PILLOWS. MED X1 WITH FENTANYL WITH GOOD RELIEF. CARTER FINISHED AND PEG CLAMPED. LIPIDS STARTED WITH CLINIMIX AND LEVOPHED WEANED OFF. DOPAMINE STILL INFUSING KCL 80 MEQ WILL BE INFUSED T/O NIGHT.
[2018-12-20 20:38] LABS: Vancomycin, Trough 10.8 ug/mL (5.0-10.0)
--- NOTE | 2018-12-20 23:06 | NUR ---
PATIENT AWAKE WATCHING TV. NODDING YES AND NO TO QUESTIONS AND ATTEMPTING TO VERBALIZE, OCCASIONALLY ABLE TO UNDERSTAND PATIENTS SPEECH. HX TRAUMATIC BRAIN INJURY. MOVING ARMS WELL CONTRACTURED TO HANDS AND LEGS. ATTEMPTS TO ASSIST WITH REPOSITIONING. PUSHING STAFF AWAY WHEN PREFORMING MAKEDA-CARE DUE TO PAINFUL SKIN. BUTTOCKS AND COCCYX RED AND BLEEDING, ATTEMPTING TO KEEP PATIENT CLEAN AND DRY DESPITE FREQUENT LIQUID BM DUE TO TREATMENT FOR OBSTIPATION. PEG TUBE FLUSHED AND CLAMPED. DOPAMINE DRIP CONTINUES FOR HYPOTENSION AND BRADYCARDIA, VIA MEDIPORT.
[2018-12-21 05:31] LABS: BASOPHILS ABSOLUTE AUTO 0.01 K/mm3 (0.00-0.23); BASOPHILS PERCENT AUTO 0 % (0-2); EOSINOPHILS PERCENT AUTO 0 % (0-6); Hematocrit 34.8 % (37.0-53.0); Hemoglobin 10.6 g/dL (13.5-17.5); IMMATURE GRAN ABSOLUTE AUTO 0.03 K/mm3 (0.00-0.10); IMMATURE GRAN PERCENT AUTO 1 % (0-1); LYMPHOCYTES PERCENT AUTO 9 % (21-46); MONOCYTES ABSOLUTE AUTO 0.23 K/mm3 (0.16-1.47); MONOCYTES PERCENT AUTO 4 % (4-13); Mean Corpuscular HGB 29.8 pg (26.0-34.0); Mean Corpuscular HGB Conc 30.5 g/dL (31.5-36.5); Mean Corpuscular Volume 98 fL (80-100); Mean Platelet Volume 12.2 fL (9.1-12.4); NEUTROPHILS ABSOLUTE AUTO 4.56 K/mm3 (1.96-9.15); NEUTROPHILS PERCENT AUTO 86 % (41-73); Platelet Count 111 K/mm3 (150-400); RDW Coefficient Variation 16.2 % (11.7-14.2); RDW Standard Deviation 57.8 fL (35.1-46.3); Red Blood Cell Count 3.56 M/mm3 (4.30-5.90); White Blood Cell Count 5.33 K/mm3 (4.00-11.30)
[2018-12-21 05:43] LABS: Albumin, Blood 1.8 g/dL (3.4-5.0); Anion Gap 9 mmol/L (6-16); Blood Urea Nitrogen 26 mg/dL (8-24); CO2, Blood 25 mmol/L (21-32); Calcium, Blood 7.7 mg/dL (8.5-10.1); Chloride, Blood 116 mmol/L (98-108); Creatinine, Blood 0.65 mg/dL (0.60-1.20); Glomerular Filtration Rate >60 (60-); Glucose, Blood 169 mg/dL (70-99); Sodium, Blood 150 mmol/L (136-145)
--- NOTE | 2018-12-21 07:30 | NUR ---
ASSUMED CARE OF PATIENT; SEE ASSESSMENT CHARTING FOR DETAILS. PATIENT SLEEPING; APPEARS COMFORTABLE. EXTREMITES ELEVATED ON PILLOWS AND SCD'S IN PLACE TO LE'S. LUNGS CLEAR; BIOX. MAINTAINING 97+% ON ROOM AIR. DUKE TO GRAVITY AND DRAINING MODERATE AMOUNTS OF MED. YELLOW URINE. PEG TUB CLAMPED. ABD. SOFTER; NO RECENT STOOL. DOPAMINE DRIP AT 10MCG/KG/MIN; HR LOW 40'S; SBP 90'S TO LOW 100'S. CLINIMAX INFUSING AT 100ML/HR. SPOUSE ARRIVED AND SITTING IN CHAIR; NOT DISRUPTING PATIENT AND ALLOWING HIM TO SLEEP.
--- NOTE | 2018-12-21 07:38 | NUR ---
PATIENT AWAKE MOST OF THE NIGHT. ABLE TO SAY FEW WORDS AND NOD YES AND NO TO SIMPLE QUESTIONS. PEG TUBE CLAMPED T/O NIGHT WITH LACTULOSE ORDERED. PATIENT PASSED ONE LIQUID BROWN BM DURING THE NIGHT, WOUND ON BUTTOCKS AND COCCYX RED AND BLEEDING WHEN CLEANSED. TURNING FREQUENTLY T/O NIGHT WITH PATIENT ATTEMPTING TO ASSIST WITH TURNING. DOPAMINE DRIP CONTINUES, TITRATED UP DURING THE NIGHT FOR HYPOTENSION AND ALSO WHEN HEART RATE DOWN TO 30'S SINUS GREG.
--- NOTE | 2018-12-21 08:55 | NUR ---
T/C TO DR. WEST' OFFICE; HE IS OUT OF OFFICE BUT THE WILL HAVE HIM CALL WHEN HE IS AVAILABLE.
--- NOTE | 2018-12-21 09:50 | NUR ---
DR. MORALESTRATE HERE; SEE ORDERS.
--- NOTE | 2018-12-21 10:00 | NUR ---
DR. EM HERE; SPOKE TO SPOUSE AND PATIENT. WANTS RN TO TURN DOPAMINE DRIP DOWN TO 5MCG/KG/MIN FROM 10MCG/KG/MIN.; DONE.
--- NOTE | 2018-12-21 10:05 | NUR ---
DR. GUTIERREZ RETURNED T/C; RN INQUIRED IF HE TRULY WANTS A ABD. XRAY DONE D/T ONE WAS ALREADY DONE AT 5AM, TODAY. HE SAID HE WASN'T AWARE AND TO CANCEL NEW ORDER.
--- NOTE | 2018-12-21 10:35 | NUR ---
DOPAMINE DRIP INCREASED TO 7MCG/KG/MIN D/T SBP STAYING LOW 70'S.
--- NOTE | 2018-12-21 11:10 | NUR ---
ECHOCARDIOGRAM STARTED ON PATIENT; ORDERED BY DR. EM.
--- NOTE | 2018-12-21 14:45 | NUR ---
DR. GUTIERREZ HERE; EVAL. PATIENTS' ABD./ELIMINATION; TO CHANGE MEDICATION/TX.
--- NOTE | 2018-12-21 16:14 | NUR ---
PARTIAL BATH GIVEN AND LINEN CHANGE DONE; HAD LARGE/LIQUID (THICK) BROWN STOOL. CLEANED SKIN AND THEN APPLIED CALAZIME OINTMENT TO WOUNDS ON SACRUM AND COCCYX AND SURROUNDING SKIN TO ALLOW PROTECTION FROM STOOLS. PRIMARY WOUND WITH LESS ESCHAR NOTED AND MORE EPITHELIAL SKIN; NO INDURATION NOTED OR MACERATION.
--- NOTE | 2018-12-21 18:20 | NUR ---
SUMMARY: UNFORMED TO LIQUID, BROWN, MEDIUM; CLEANED UP AND MORE CALAZIME OINTMENT APPLIED TO COCCYX/SACRUM AREAS. FEBRILE THIS AFTERNOON, 99.5, ROOM TEMP REDUCED AND EXTRA BLANKETS REMOVED. REMAINS ON DOPAMINE DRIP AT 6MCG/KG/MIN; SBP HIGH 80'S TO LOW 90'S MOST OF AFTERNOON AND HR IN THE 50'S WHEN AWAKE. WILL REPORT TO ONCOMING RN.
--- NOTE | 2018-12-21 20:00 | NUR ---
ASSUMED CARE OF PT REPORT RECEIVED FROM PAIGE EMMANUEL. DOPAMINE RUNNING AT 6 MCG/KG/MIN DUE TO PT'S INCIDENCES OF BRADYCARDIA TODAY. PT IS ALERT AND ABLE TO NOD HEAD YES/NO IN RESPONSE TO QUESTIONS. PT'S SPEECH IS GARBLED BUT PT ABLE TO FOLLOW COMMANDS. TEMP DUKE PATENT AND DRAINING DARK YELLOW URINE. SEE FULL SHIFT ASSESSMENT.
[2018-12-22 03:43] LABS: BASOPHILS ABSOLUTE AUTO 0.01 K/mm3 (0.00-0.23); BASOPHILS PERCENT AUTO 0 % (0-2); EOSINOPHILS PERCENT AUTO 0 % (0-6); Hematocrit 33.3 % (37.0-53.0); Hemoglobin 10.5 g/dL (13.5-17.5); IMMATURE GRAN ABSOLUTE AUTO 0.07 K/mm3 (0.00-0.10); IMMATURE GRAN PERCENT AUTO 1 % (0-1); LYMPHOCYTES ABSOLUTE AUTO 0.28 K/mm3 (0.84-5.20); LYMPHOCYTES PERCENT AUTO 5 % (21-46); MONOCYTES ABSOLUTE AUTO 0.25 K/mm3 (0.16-1.47); MONOCYTES PERCENT AUTO 5 % (4-13); Mean Corpuscular HGB 30.4 pg (26.0-34.0); Mean Corpuscular HGB Conc 31.5 g/dL (31.5-36.5); Mean Corpuscular Volume 97 fL (80-100); Mean Platelet Volume 12.2 fL (9.1-12.4); NEUTROPHILS ABSOLUTE AUTO 4.75 K/mm3 (1.96-9.15); NEUTROPHILS PERCENT AUTO 89 % (41-73); Platelet Count 110 K/mm3 (150-400); RDW Coefficient Variation 16.1 % (11.7-14.2); Red Blood Cell Count 3.45 M/mm3 (4.30-5.90); White Blood Cell Count 5.36 K/mm3 (4.00-11.30)
[2018-12-22 04:05] LABS: Albumin, Blood 1.7 g/dL (3.4-5.0); Anion Gap 8 mmol/L (6-16); Blood Urea Nitrogen 27 mg/dL (8-24); Bun/Creatinine Ratio 46.4 (12.0-20.0); CO2, Blood 26 mmol/L (21-32); Calcium, Blood 7.5 mg/dL (8.5-10.1); Chloride, Blood 111 mmol/L (98-108); Creatinine, Blood 0.58 mg/dL (0.60-1.20); Glomerular Filtration Rate >60 (60-); Glucose, Blood 152 mg/dL (70-99); Phosphorus, Blood 2.8 mg/dL (2.5-4.9); Potassium, Blood 3.3 mmol/L (3.5-5.5); Sodium, Blood 145 mmol/L (136-145)
--- NOTE | 2018-12-22 06:09 | NUR ---
SHIFT SUMMARY PT STABLE THROUGHOUT SHIFT. DOPAMINE AT 7 MCG/KG/MIN. RECTAL TUBE INSERTED DUE TO CONTINUOUS LOOSE STOOL AND PT'S WOUNDS ON BUTTOCKS AND COCCYX. TUBE IS PATENT AND DRAINING BROWN LIQUID STOOL. PT STILL ALERT AND ABLE TO ANSWER QUESTIONS BY NODDING YES/NO. PT DENIED PAIN FOR MOST OF THE SHIFT BUT WAS MEDICATED TWICE AFTER FACIAL GRIMACING NOTED AND PT MOANING. PT ABLE TO REST FOR APPROXIMATELY 4 HOURS AND MAINTAINED HIS HR IN THE LOW 50'S TO MID 60'S. WILL REPORT TO DAYSHIFT NURSE.
--- NOTE | 2018-12-22 07:30 | NUR ---
ASSUMED CARE OF PATIENT; SEE ASSESSMENT CHARTING FOR DETAILS. PATIENT RESTLES AND MOANING INTERMITTENTLY; REPOSITIONED AND ORAL CARE DONE. APPEARS COMFORTABLE FOR SHORT TERM AND THEN STARTS MOANING. SBP REMAINS LOW; DOPAMINE GTT AT 7MCG/KG/MIN; WILL ATTEMPT TO TITRATE DOWN BUT SBP 80'S AND 90'S AT THIS TIME. LUNGS CLEAR; OCCASIONAL MOIST BUT NPC. BIOX STAYING 97%+ ON ROOM AIR. DUKE TO GRAVITY AND DRAINING MOD. AMOUNTS OF CLEAR, YELLOW URINE. RECTAL TUBE TO GRAVITY; SMALL AMOUNT OF THICK/LIQUID BROWN STOOL DRAINING. ABD. WITH ACTIVE BOWEL TONES AND SOFTER. LAXATIVE ORDERED BY DR. GUTIERREZ LAST EVENING HAS BEEN HELD D/T CAN NOT BE CRUSHED AND CAN NOT FIT DOWN PEG TUBE; WILL CONTACT DR. GUTIERREZ LATER IN AM AND DISCUSS. CLINIMAX INFUSING AT 100ML/HR. KEPT OFF OF BUTTOCKS AND BACK D/T PRESSURE SORES.
--- NOTE | 2018-12-22 08:00 | NUR ---
DR. MAN HERE; INQUIRED ON BP STATUS, ETC. k+ LEVEL 3.3, RIDERS ORDERED. SBP REMAINS LOW AND IT IS DIFFICULT TO TITRATE DOPAMINE. PATIENTS TEMP. 100.7. REPOSITIONED AND FACE WASHED; ROOM TEMP TURNED DOWN AND EXTRA BLANKETS REMOVED. DISCUSSED WITH DR. EM RESUMING MIDODRINE PER PREVIOUS TO HELP INCREASE BP; SHE WILL PLACE ORDER.
--- NOTE | 2018-12-22 12:30 | NUR ---
1 LITER NS BOLUS GIVEN TO HELP IMPROVE BP. PATIENT NO LONGER FEBRILE; BROKE FEVER ON OWN. SEE FLOW SHEET FOR DOPAMINE MANAGEMENT.
[2018-12-22 14:06] LABS: Adenovirus Not Detected (NOT DETECT); Bordetella pertussis Not Detected (NOT DETECT); Chlamydophila pneumoniae Not Detected (NOT DETECT); Coronavirus 229E Not Detected (NOT DETECT); Coronavirus HKU1 Not Detected (NOT DETECT); Coronavirus NL63 Not Detected (NOT DETECT); Coronavirus OC43 Not Detected (NOT DETECT); Human Metapneumovirus Not Detected (NOT DETECT); Human Rhinovirus/Enterovirus Not Detected (NOT DETECT); Influenza A Not Detected (NOT DETECT); Influenza A/2009-H1 Not Detected (NOT DETECT); Influenza A/H1 Not Detected (NOT DETECT); Influenza A/H3 Not Detected (NOT DETECT); Influenza B Not Detected (NOT DETECT); Mycoplasma pneumoniae Not Detected (NOT DETECT); Parainfluenza Virus 1 Not Detected (NOT DETECT); Parainfluenza Virus 2 Not Detected (NOT DETECT); Parainfluenza Virus 3 Not Detected (NOT DETECT); Parainfluenza Virus 4 Not Detected (NOT DETECT); Respiratory Syncytial Virus Not Detected (NOT DETECT)
--- NOTE | 2018-12-22 18:30 | NUR ---
SUMMARY: COLOR IMPROVED AND REMAINS AFEBRILE. DOPAMINE TITRATED DOWN TO 5MCG/KG/MIN. 50ML OF BROWN THICK/LIQUID STOOL IN RECTAL BAG. URINE LESS CONCENTRATED THIS EVENING SINCE IV BOLUS. CONTINUES WITH LIPIDS AND CLINIMAX PER PREVIOUS ORDERS. SPOUSE HERE EARLIER TODAY AND WILL RETURN TOMORROW MORNING. SEE ORDERS FOR CHANGES. WILL REPORT TO ONCOMING RN.
--- NOTE | 2018-12-22 19:00 | NUR ---
ASSUMED CARE OF PT ALERT SITTING UP IN BED WATCHING TV ORIENTED TO SELF. DOPAMINE AT 5MCG/KG/MIN. TEMP DUKE AND RECTAL TUBE PATENT AND DRAINING. PT DENIES PAIN AT THIS TIME. HR 55. MAP 59. SEE FULL SHIFT ASSESSMENT.
[2018-12-22 20:26] LABS: Vancomycin, Trough 9.9 ug/mL (5.0-10.0)
[2018-12-23 04:04] LABS: BASOPHILS PERCENT AUTO 0 % (0-2); EOSINOPHILS ABSOLUTE AUTO 0.12 K/mm3 (0.00-0.68); EOSINOPHILS PERCENT AUTO 3 % (0-6); Hematocrit 32.8 % (37.0-53.0); Hemoglobin 10.3 g/dL (13.5-17.5); IMMATURE GRAN ABSOLUTE AUTO 0.04 K/mm3 (0.00-0.10); IMMATURE GRAN PERCENT AUTO 1 % (0-1); LYMPHOCYTES ABSOLUTE AUTO 0.57 K/mm3 (0.84-5.20); LYMPHOCYTES PERCENT AUTO 12 % (21-46); MONOCYTES ABSOLUTE AUTO 0.17 K/mm3 (0.16-1.47); MONOCYTES PERCENT AUTO 4 % (4-13); Mean Corpuscular HGB 30.5 pg (26.0-34.0); Mean Corpuscular HGB Conc 31.4 g/dL (31.5-36.5); Mean Corpuscular Volume 97 fL (80-100); NEUTROPHILS ABSOLUTE AUTO 3.69 K/mm3 (1.96-9.15); NEUTROPHILS PERCENT AUTO 80 % (41-73); Platelet Count 116 K/mm3 (150-400); RDW Coefficient Variation 16.7 % (11.7-14.2); RDW Standard Deviation 59.2 fL (35.1-46.3); Red Blood Cell Count 3.38 M/mm3 (4.30-5.90); White Blood Cell Count 4.59 K/mm3 (4.00-11.30)
[2018-12-23 04:23] LABS: Albumin, Blood 1.5 g/dL (3.4-5.0); Anion Gap 6 mmol/L (6-16); Blood Urea Nitrogen 27 mg/dL (8-24); Bun/Creatinine Ratio 46.6 (12.0-20.0); CO2, Blood 26 mmol/L (21-32); Calcium, Blood 7.1 mg/dL (8.5-10.1); Chloride, Blood 113 mmol/L (98-108); Creatinine, Blood 0.58 mg/dL (0.60-1.20); Glomerular Filtration Rate >60 (60-); Glucose, Blood 109 mg/dL (70-99); Magnesium, Blood 2.1 mg/dL (1.6-2.4); Phosphorus, Blood 2.7 mg/dL (2.5-4.9); Potassium, Blood 3.4 mmol/L (3.5-5.5); Sodium, Blood 145 mmol/L (136-145)
--- NOTE | 2018-12-23 05:48 | NUR ---
SHIFT SUMMARY NO ACUTE CHANGES OVERNIGHT. PT REMAINS ON 5 MCG/KG/MIN DOPAMINE AND HAS MAINTAINTED SBP IN THE MID 80'S WITH HR IN THE HIGH 50'S. PT IS ALERT AND ABLE TO COMMUNICATE NEEDS BY NODDING HEAD YES/NO. ABDOMEN SOFT TO PALPATION WITH NO SIGNS OF TENDERNESS. RECTAL TUBE PATENT AND DRAINING LOOSE BROWN STOOL. 50 ML'S FECAL OUTPUT THIS SHIFT. TEMP DUKE PATENT AND DRAINED 750 ML ANALI COLORED URINE. PT DENIED PAIN THROUGHOUT SHIFT. WILL REPORT TO DAYSHIFT NURSE.
--- NOTE | 2018-12-23 08:13 | NUR ---
0722-ASSUMED CARE OF PT. PT IS AWAKE, FOLLOWING COMMANDS AT TIMES, PT HAS CONTRATURES TO UPPER AND LOWER EXTREMETIES. GARBLES WORDS. PT AFEBRILE. 0813- AT BEDSIDE. UPDATED HER OF PT'S STATUS.
--- NOTE | 2018-12-23 12:45 | NUR ---
PT IS CURRENTLY ON 10MCG/KG/MIN OF DOPAMINE BP STILL IN THE 80s. HR 40-50. DR. BRYANT WAS NOTIFIED. ORDERS RECEIVED.
--- NOTE | 2018-12-23 13:25 | NUR ---
BP IN THE 120s AT THIS TIME. DR. BRYANT IS AWARE. DOPAMINE STILL @ 10MCG/KG/MIN. LEVOPHED ON STANDY BY. PT HAD RECEIVED 10MG OF MIDODRINE AN HOUR AGO.
--- NOTE | 2018-12-23 19:15 | NUR ---
ASSUMING CARE OF PT AT THIS TIME. PT REPORT RECEIVED AT BEDSIDE WITH OFFGOING NURSE, MARTÍNEZ GIBSON. PT LAYING IN BED, WATCHING TELEVISION UPON ENTERING THE ROOM. VS STABLE - SEE VS FS. PT DOES NOT APPEAR TO BE IN DISTRESS. WILL REVIEW PLAN OF CARE.
--- NOTE | 2018-12-23 19:15 | NUR ---
ASSUMING CARE OF PT AT THIS TIME. PT REPORT RECEIVED AT BEDSIDE WITH OFFGOING NURSES, CALLUM RN AND LU RN. PT LAYING IN BED, INTUBATED, SEDATED UPON ENTERING THE ROOM. PT'S FAMILY AT BEDSIDE. PT DOES NOT APPEAR TO BE IN DISTRESS AT THIS TIME. WILL REVIEW PLAN OF CARE. KIKE MELTON FROM [facility] PLACING BILAT POST OP KNEE BRACES AT THIS TIME.
--- NOTE | 2018-12-23 19:26 | NUR ---
REPOSITIONED. SOME MOANS TODAY BUT NO SPEECH. LOTS OF LIGHT BROWN STOOL IN RECTAL TUBE BAG. CLINIMOX AT 100ML/HOUR AND DOPAMINE AT 10MICS/KG/HOUR.REMBERTO WRIST CONTRACTURES
--- NOTE | 2018-12-23 19:30 | NUR ---
ASSESSMENT PT CALM, AGITATED AND IRRITABLE WITH CARE, PUSHING STAFF AWAY DURING PT CARE, QUIET, RESPONDS TO VERBAL STIMULI, SPONT OPENS EYES, DOES NOT FOLLOW COMMANDS, LOCALIZES PAIN, MAKES SOUNDS, DOES NOT TALK, DOES NOT NOD HEAD Y/N TO QUESTIONS, TRACKS WITH EYES. GARFIELD SENSATION. CONTRACTURES. PT ZHU. WEAKNESS NOTED WITH MOVEMENT. NO S/SX OF PAIN/DISCOMFORT NOTED. LUNGS CLEAR, MIDDLE AND LOWER LOBES DIMINISHED. PT ON RA. OXY SAT >95%. RR 20'S. NO SOB AT REST. DYSPNEA ON EXERTION. SHALLOW BREATHING. TEMP 99.5 - TURNED DOWN ROOM TEMP, BLANKETS REMOVED. NSR WITH BBB. HR 60'S. BP STABLE - SEE VS FS. DOPAMINE DRIP 10 MCG/KG/MIN - WILL TITRATE TO EFFECT. STRONG PULSES. WARM, PALE SKIN. EDEMA NOTED. HYPOACTIVE BT X4 QUADRANTS. ABD MILD DIST, TENDER WITH PALPATION, SOFT. NO N/V. PEG TUBE IN PLACE: CLAMPED. RECTAL TUBE: BROWN LIQUID STOOL NOTED. REPORT REPORT - CONT TO ADMINISTER MEDICATIONS PER BOWEL PROTOCOL FOR FECAL IMPACTION. F/C IN PLACE: DARK, YELLOW URINE. MEDIPORT. PIV X1. NS TKO AT 10 ML/HR. CLINIMIX 100 ML/HR FAT EMULISION 25 ML/HR.
--- NOTE | 2018-12-23 21:13 | NUR ---
DR. TONEY [place] 68. HELD LANTUS. ADMINISTER DEXTROSE PER PHYSICIAN'S ORDER. CALLED DR. TONEY AT THIS TIME. INFORMED DR. TONEY OF [place]. DR. TONEY INSTRUCTED TO HOLD LANTUS AND CHANGED SLIDING SCALE TO LSS Q6.
[2018-12-24 04:09] LABS: BASOPHILS ABSOLUTE AUTO 0.02 K/mm3 (0.00-0.23); BASOPHILS PERCENT AUTO 0 % (0-2); EOSINOPHILS ABSOLUTE AUTO 0.14 K/mm3 (0.00-0.68); EOSINOPHILS PERCENT AUTO 2 % (0-6); Hematocrit 35.1 % (37.0-53.0); Hemoglobin 11.3 g/dL (13.5-17.5); IMMATURE GRAN PERCENT AUTO 1 % (0-1); LYMPHOCYTES ABSOLUTE AUTO 0.67 K/mm3 (0.84-5.20); LYMPHOCYTES PERCENT AUTO 9 % (21-46); MONOCYTES PERCENT AUTO 4 % (4-13); Mean Corpuscular HGB 30.5 pg (26.0-34.0); Mean Corpuscular HGB Conc 32.2 g/dL (31.5-36.5); Mean Corpuscular Volume 95 fL (80-100); NEUTROPHILS ABSOLUTE AUTO 6.09 K/mm3 (1.96-9.15); NEUTROPHILS PERCENT AUTO 83 % (41-73); Platelet Count 139 K/mm3 (150-400); RDW Coefficient Variation 16.9 % (11.7-14.2); RDW Standard Deviation 57.6 fL (35.1-46.3); White Blood Cell Count 7.32 K/mm3 (4.00-11.30)
[2018-12-24 04:25] LABS: Albumin, Blood 1.6 g/dL (3.4-5.0); Anion Gap 7 mmol/L (6-16); Blood Urea Nitrogen 24 mg/dL (8-24); Bun/Creatinine Ratio 46.1 (12.0-20.0); CO2, Blood 26 mmol/L (21-32); Chloride, Blood 109 mmol/L (98-108); Creatinine, Blood 0.52 mg/dL (0.60-1.20); Glomerular Filtration Rate >60 (60-); Glucose, Blood 154 mg/dL (70-99); Phosphorus, Blood 2.3 mg/dL (2.5-4.9); Potassium, Blood 3.8 mmol/L (3.5-5.5); Sodium, Blood 142 mmol/L (136-145)
--- NOTE | 2018-12-24 05:00 | NUR ---
DR. BISHOP CALLED DR. BISHOP AT THIS TIME. INFORMED DR. BISHOP OF AM [facility]. DR BISHOP ORDERED POTASSIUM PHOS 20 MM IVPB. WAITING FOR MEDICATION FROM PHARMACY AT THIS TIME.
--- NOTE | 2018-12-24 05:04 | NUR ---
SHIFT ASSESSMENT NO ACUTE CHANGES NOTED T/O SHIFT. PT SLEPT APPROXIMATELY HALF OF SHIFT. PT CALM, AGITATED AND IRRITABLE WITH PT CARE, PUSHING STAFF AWAY DURING PT CARE, QUIET, RESPONDS TO VERBAL STIMULI, SPONT OPENS EYES, DOES NOT FOLLOW COMANDS, LOCALIZES PAIN, MAKES SOUNDS, DOES NOT TALK, DOES NOT NOD HEAD Y/N TO QUESTIONS, TRACKS WITH EYES. GARFIELD SENSATION. CONTRACTURES. PT ZHU. WEAKNESS NOTED WITH MOVEMENT. S/SX OF PAIN/DISCOMFORT NOTED UPON CLEANING COCCYX/SACRUM WOUND. OTHERWISE, NO S/SX OF PAIN/DISCOMFORT NOTED T/O SHIFT. LUNGS CLEAR, MIDDLE AND LOWER LOBES DIMINISHED. PT ON RA. OXY SAT REMAINED >90%. RR 13 TO 30'S. NO SOB AT REST. DYSPNEA ON EXERTION. SHALLOW BREATHING. OCC NONPRODUCTIVE COUGH. TMAX 99.5 - TURNED DOWN ROOM TEMP, BLANKETS REMOVED. CURRENTLY, PT IS AFEBRILE WITH A SHEET ON. SB TO NSR WITH BBB. HR 50'S TO 70'S. BP STABLE WHILE ON DOPAMINE DRIP 10 MCG/KG/MIN - CONT TO TITRATE TO EFFECT. DECREASED HR AND BP NOTED WHEN SLEEPING. STRONG PULSES. COOL, PALE SKIN THIS AM. EDEMA NOTED. HYPOACTIVE BT X4 QUADRANTS. ABD MILD DIST, TENDER WIH PALPATION, SOFT. NO N/V. PEG TUBE IN PLACE: CLAMPED. RECTAL TUBE: BROWN LIQUID STOOL NOTED. F/C IN PLACE: DARK YELLOW URINE. MEDIPORT. PIV X1. NS TKO AT 10 ML/HR. CLINIMIX 100 ML/HR. WAITING FOR POTASSIUM PHOS FROM PHARMACY AT THIS TIME. WILL CONT TO MONITOR PT AND WILL PROVIDE BEDSIDE REPORT TO ONCOMING NURSE THIS AM.
--- NOTE | 2018-12-24 07:30 | NUR ---
START OF SHIFT NOTE: PATIENT IS SWAKE, BUT NON VERBAL, TRIES TO PUSH ATTENDING STAFF AWAY WITH ARMS, PATIENT IN NSR, LS CLEAR, BOWEL TONES PRESENT, PATIENT IS EXTREMELY CONTRACTED AND HAS EDEMA ON RIGHT UPPER EXTREMITY, CLINIMAX INFUSING, WELL DOPAMINE TO KEEP SBPs WNL, PATIENT HAS PEG TUBE AND MEDICATION IS INSTILLED THROUGH PEG, PATIENT HAS AN EXTREMELY HIGH ASPIRATION RISK, AT BEDSIDE, CALL LIGHT IN REACH, WILL CONTINUE TO MONITOR.
[2018-12-24 08:44] LABS: Vancomycin, Trough 12.5 ug/mL (5.0-10.0)
--- NOTE | 2018-12-24 10:32 | NUR ---
DR. BRYANT IN TO SEE PATIENT, NEW ORDERS RECEIVED.
--- NOTE | 2018-12-24 11:34 | NUR ---
PATIENT WAS REPOSITIONED, STOOL IS BECOMING MORE PASTY AND WAS NOTED AROUND RECTUM AND RECTAL TUBE, PATIENT'S SKIN IS EXCORIATED AROUND SACRUM AND RECTAL AREA, AREA CLEANSED WITH SOAP AND WATER AND CALAZIME CREAM APPLIED, PATIENT TOLERATED FAIR, WILL CONTINUE TO MONITOR.
--- NOTE | 2018-12-24 13:35 | NUR ---
PATIENT WAS TAKEN TO X-RAY VIA BED AT 1310, MOVED TO X-RAY TABLE WITH 4 ASSIST, TOLERATED WELL, AND X-RAY DONE, RETURNED TO ROOM AT 1330.
--- NOTE | 2018-12-24 14:22 | NUR ---
DR. BRYANT NOTIFIED ABOUT XRAY FINDINGS, NEW ORDERS RECEIVED.
--- NOTE | 2018-12-24 15:21 | NUR ---
RECTAL TUBE REMOVED PER DR. BRYANT AFTER EXAMINING XRAY RESULTS, NEW MEDICATION ORDERS RECEIVED WELL.
--- NOTE | 2018-12-24 17:58 | NUR ---
SHIFT SUMMARY NOTE: PATIENT CONTINUES TO BE NON VERBAL, COOPERATIVE MOST OF THE TIME, AT TIMES WILL TRY AND PUSH RN AWAY WITH ARMS, UPPER EXTREMITIES ARE EXTREMELY CONTRACTED, ESPECIALLY HANDS, REPOSITIONED FREQUENTLY, DUKE CATHETER IN PLACE AND PATIENT HAD 2850 CC OF CLEAR YELLOW URINE OUT, CONTINUES TO BE ON DOPAMINE AT 12 MCG, WITH SBP IN 110'S, ALSO RECEIVES MIDODRINE 10 MG BID TO KEEP SBP WNL, DR. BRYANT IN TO SEE PATIENT, NEW ORDERS RECEIVED, DR. GUERRIER IN TO SEE PATIENT, HE ORDERED ABDOMINAL XRAY D/T PALPATING LARGE LUMP ON RUQ/RLQ, PATIENT WAS TAKEN TO IMAGING AND SEE IMAGING NOTE FOR RESULTS, PER DR. BRYANT RECTAL TUBE WAS REMOVED TO ALLOW LARGE LUMP OF STOOL TO EVACUATE, PATIENT NOW ON MOM, MIRALAX AND SENNOKOT, ALSO ON LACTULOSE, CALAZIME CREAM WAS APPLIED TO EXCORIATED SACRAL AND RECTAL AREA, PATIENT NOTED TO GRIMACE WITH CLEANING OF RECTUM AND REPOSITIONING, PATIENT IS ON CLINIMAX AND LIPIDS, RECEIVES VANCOMYCIN AND HAS NS AT TKO INFUSING VIA MEDIPORT, ALSO HAS PIV IN L FA, PATIENT APPEARED MORE AWAKE THIS AFTERNOON AND FOLLOWED NURSING STAFF WITH EYES, CALLED AND WAS UPDATED, CALL LIGHT IN REACH, WILL CONTINUE TO MONITOR AND GIVE REPORT TO ONCOMING ARTIFICIAL BREEDING TECHNICIAN. FOR DETAILS SEE SHIFT ASSESSMENT DOCUMENTATION AND NURSES NOTES.
--- NOTE | 2018-12-24 19:30 | NUR ---
ASSUMED PT CARE AT 1915 PT RESTING IN BED. DOPAMINE INFUSING VIA MEDIPORT TO RIGHT UPPER CHEST AT 10MCG/KG/MIN. CLINIMIX AT 100MLS/HR AND FAT EMULSION INFUSING AT 25MLS/HR VIA 20G IN LEFT FOREARM. ROLLED PT TO SIDE TO ASSESS SACRUM/COCCYX; DECUB ULCER NOTED WITH ESCHAR TISSUE AND PERIWOUND IS NOTED TO BE RED. PEG TUBE NOTED TO MID UPPER ABDOMEN. DUKE CATH IS PATENT AND DRAINING TO GRAVITY; DARK, YELLOW URINE. PT IS NONVERBAL AND UNABLE TO ASSESS MENTATION AT THIS TIME. CALL LIGHT IS WITHIN REACH. NO FAMILY AT BEDSIDE.
[2018-12-25 04:00] LABS: BASOPHILS ABSOLUTE AUTO 0.01 K/mm3 (0.00-0.23); BASOPHILS PERCENT AUTO 0 % (0-2); EOSINOPHILS ABSOLUTE AUTO 0.02 K/mm3 (0.00-0.68); EOSINOPHILS PERCENT AUTO 0 % (0-6); Hemoglobin 11.2 g/dL (13.5-17.5); IMMATURE GRAN PERCENT AUTO 1 % (0-1); LYMPHOCYTES ABSOLUTE AUTO 0.49 K/mm3 (0.84-5.20); LYMPHOCYTES PERCENT AUTO 6 % (21-46); MONOCYTES ABSOLUTE AUTO 0.27 K/mm3 (0.16-1.47); MONOCYTES PERCENT AUTO 3 % (4-13); Mean Corpuscular HGB 29.9 pg (26.0-34.0); Mean Corpuscular Volume 93 fL (80-100); Mean Platelet Volume 11.5 fL (9.1-12.4); NEUTROPHILS ABSOLUTE AUTO 7.51 K/mm3 (1.96-9.15); NEUTROPHILS PERCENT AUTO 90 % (41-73); Platelet Count 144 K/mm3 (150-400); RDW Coefficient Variation 16.4 % (11.7-14.2); RDW Standard Deviation 55.8 fL (35.1-46.3); Red Blood Cell Count 3.75 M/mm3 (4.30-5.90)
[2018-12-25 04:17] LABS: Anion Gap 7 mmol/L (6-16); Blood Urea Nitrogen 23 mg/dL (8-24); Bun/Creatinine Ratio 49.9 (12.0-20.0); CO2, Blood 27 mmol/L (21-32); Calcium, Blood 7.6 mg/dL (8.5-10.1); Chloride, Blood 110 mmol/L (98-108); Creatinine, Blood 0.46 mg/dL (0.60-1.20); Glomerular Filtration Rate >60 (60-); Glucose, Blood 210 mg/dL (70-99); Sodium, Blood 144 mmol/L (136-145)
--- NOTE | 2018-12-25 06:20 | NUR ---
END OF SHIFT SUMMARY PT HAS REMAINED NONVERBAL; RESPONDS TO YES/NO QUESTIONS; HOWEVER, UNABLE TO ASSESS MENTATION. ABLE TO FOLLOW COMMANDS AND HAS ATTEMPTED SAYING, "YES" AND "NO". PT HASN'T DISPLAYED ANY NONVERBAL SIGNS OF PAIN THIS SHIFT. PT HAS PARTICIPATED MORE IN CARE TODAY. PT HAS A FLAT/WITHDRAWN AFFECT; HOWEVER, HAS NOT ATTEMPTED ANY VIOLENT OR AGGRESSIVE BEHAVIORS THIS SHIFT. LUNG SOUNDS HAVE REMAINED CLEAR/DIMINISHED T/O. NSR WITH BBB; ASYMPTOMATIC WITH HR 60-70'S MOST OF SHIFT WITH OCCASIONAL HR 50'S. DOPAMINE GTT HAS BEEN TITRATED DOWN TO 8MCG/KG/MIN THIS SHIFT WITH SBP MAINTAINING IN THE 90'S; MAP >65; AND HR MAINTAINING IN THE 60'S. PT HAS HAD MULTIPLE LOOSE, LIQUID STOOL THAT HAS BEEN BROWN/YELLOW IN COLOR. PT HAD ONE PASTY STOOL. PT ATTEMPTED TO PUSH MULTIPLE TIMES TO GET MORE OUT AND WASN'T ABLE TO. THEREFORE, PT WAS GOT UP INTO CHAIR TO HELP WITH HAVING A BM AND MORE LIQUID STOOL CAME OUT. TRANSFERRED PT INTO SHOWER AND RAN WARM WATER TO BOTTOM TO HELP STIMULATE PT TO EVACUATE MORE STOOL; NO FORMED STOOL CAME OUT. DUKE CATHETER REMAINS PATENT AND DRAINING DARK, YELLOW URINE TO GRAVITY. MEDIPORT ACCESSED TO RIGHT UPPER CHEST WITH DOPAMINE GTT AND NS INFUSING TKO. NEW 20G PLACED TO RIGHT FOREARM WITH CLINIMIX INFUSING AT 100MLS/HR. D/C'D IV TO LEFT FOREARM D/T INFILTRATION. PT REMAINS CONTRACTED AND HAS SACRAL DECUBITUS ULCER. PT HAS BEEN REPOSITIONED OFF WOUND WITH ROM PERFORMED TO ALL EXTREMITIES. PT HAS NOTED PITTING EDEMA TO BLE AND BUE; ELEVATED ON PILLOWS. PT DOESN'T APPEAR TO BE IN ANY DISTRESS TO DISCOMFORT AT THIS TIME; WILL CONTINUE TO MONITOR UNTIL REPORT HAS BEEN GIVEN OFF TO ONCOMING RN.
--- NOTE | 2018-12-25 13:29 | NUR ---
PT C/O "LINE OF PAIN" ACROSS CHEST THAT HE HAD ON NOC SHIFT BUT IS ABSENT NOW. PT HAS JORGITO ISAAC ON TRACE TO 1+ EDEMA. PT IV'S ARE SL. PT TAKING PO WELL. PT VS NOTED.
--- NOTE | 2018-12-25 13:34 | NUR ---
1125... PT INSTRUCTIONS FOR D/C GIVEN, IV REMOVED INTACT, RX CALLED IN, OTILIO RAYA AND ALIN CALLED AND AGREE TO DISCHARGE. PT CONT TO DENIE ANY CHEST PAIN OR DISTRESS. HR 52-55 AND NOTES SOME LIGHTHEADEDNESS. PT VERY A/O WITH IN ROOM AND LOOKING FORWARD TO GOING HOME.
--- NOTE | 2018-12-25 17:08 | NUR ---
0800 PT WILL LOOK AT YOU BUT WILL NOT VERBALLY RESPOND. PT IS CONTRACTURED WITH EXTREMETIES GREATER ON UPPPER EXT. PT BUTTOCKS AND SACRAL AREA IS VERY EXCORIEATED AND PT STOOLING BROWN STOOL AND LIQUID IN NATURE. MEPLIX CUT OUT FOR ANNUS TO PROTECT THE SKIN AND WILL FOLLOW. BP NOTES AT DOPAMINE AT 8MCG, TKO NS, CLINIMIX GTT AT 100ML.
--- NOTE | 2018-12-25 17:14 | NUR ---
1600 PT CONT TO STOOL LARGE AMOUNTS OF LIQUID STOOL, RECTAL TUBE WILL BE REPLACED TO PROTECT SKIN WITH DR BRYANT'S CONCENT IF WE WILL CHECK THE RECTAL VAULT FOR IMPACTED STOOL THAT MAY HAVE MIGRATED DOWN THE COLON. PT IS QUITE SORE AND MEPLIX AGAIN PLACED TO ATTEMPT TO PROTECT SKIN. PT REMIANS ON DOPAMINE GTT AT 8MCG, UNABLE TO TITRATE.
--- NOTE | 2018-12-25 18:12 | NUR ---
RECTAL TUBE IN PLACE BUT LIQUID STOOL CONTINUES TO LEAK AROUND TUBE. PT HAS BEEN ON RA ALL DAY W/O RESP DISTRESS. IVF REMAINS UNCHANGED. PT REMAINS AWAKE AND WILL LOOK AT YOU BUT IS NONVERBAL.
[2018-12-26 04:34] LABS: BASOPHILS ABSOLUTE AUTO 0.02 K/mm3 (0.00-0.23); BASOPHILS PERCENT AUTO 0 % (0-2); EOSINOPHILS ABSOLUTE AUTO 0.01 K/mm3 (0.00-0.68); EOSINOPHILS PERCENT AUTO 0 % (0-6); Hematocrit 33.2 % (37.0-53.0); Hemoglobin 10.5 g/dL (13.5-17.5); IMMATURE GRAN ABSOLUTE AUTO 0.15 K/mm3 (0.00-0.10); IMMATURE GRAN PERCENT AUTO 1 % (0-1); LYMPHOCYTES ABSOLUTE AUTO 0.67 K/mm3 (0.84-5.20); LYMPHOCYTES PERCENT AUTO 5 % (21-46); MONOCYTES ABSOLUTE AUTO 0.35 K/mm3 (0.16-1.47); MONOCYTES PERCENT AUTO 3 % (4-13); Mean Corpuscular HGB 30.3 pg (26.0-34.0); Mean Corpuscular HGB Conc 31.6 g/dL (31.5-36.5); Mean Platelet Volume 10.9 fL (9.1-12.4); NEUTROPHILS ABSOLUTE AUTO 12.18 K/mm3 (1.96-9.15); NEUTROPHILS PERCENT AUTO 91 % (41-73); Platelet Count 191 K/mm3 (150-400); RDW Coefficient Variation 16.8 % (11.7-14.2); RDW Standard Deviation 58.4 fL (35.1-46.3); Red Blood Cell Count 3.47 M/mm3 (4.30-5.90); White Blood Cell Count 13.38 K/mm3 (4.00-11.30)
[2018-12-26 04:35] LABS: Mean Corpuscular Volume 96 fL (80-100)
[2018-12-26 04:50] LABS: Anion Gap 6 mmol/L (6-16); Blood Urea Nitrogen 25 mg/dL (8-24); Bun/Creatinine Ratio 47.2 (12.0-20.0); CO2, Blood 28 mmol/L (21-32); Calcium, Blood 7.6 mg/dL (8.5-10.1); Chloride, Blood 110 mmol/L (98-108); Creatinine, Blood 0.53 mg/dL (0.60-1.20); Glomerular Filtration Rate >60 (60-); Glucose, Blood 206 mg/dL (70-99); Sodium, Blood 144 mmol/L (136-145)
--- NOTE | 2018-12-26 07:49 | NUR ---
[id number]: ALERT, INTERACTIVE, ANSWERS YES/NO QUESTIONS. ATTEMPTS TO ASSIST W/ TURNS. RECTAL TUBE REMOVED FOR ASSESSMANT, SM AMT MARISOL LIKE STOOL IN OPENING. SIMILAR PALPATED HIGH IN RECTUM, UNABLE TO REMOVE. RECTAL TUB REMAINS OUT, SOMETIMES 3 HRS BETWEEN LIQUID STOOLS. NO STOOL PALPATED MIDSHIFT, APPROX ORANGE SIZED AMT STOOL REMOVED IN SEVERAL PIECES AM. VERY LG AMT BROWN LIQUID INCONTINENCE. ATTEMPT TO APPLY MEPELEX TO MACERATED SACRAL AREA IMPOSSIBLE DUE TO CONSTANT STOOLING. DOPAMINE GTT REDUCED TO 6 MICS AFTER 0000 DOSE MIDRIDINE GIVEN.
--- NOTE | 2018-12-26 09:59 | NUR ---
0800 PT ALERT BUT REMAINS NON-VERBAL. PT HAS STOOLED AGAIN OF BROWN LIQUID STOOL BUT SOME PASTE NATURE TO THIS STOOL, WILL MONITOR. PT BUTTOCKS CLEANED AND MEPLIX TYPE DSG APPLIED TO ATTEMPT TO PROTECT THE SKIN. DOPAMINE GTT IS A 6MCG, CLINIMIX AT 100, NS TKO. ABD IS POSSIBLE SOFTER TODAY ON A SUBJECTIVE BASIS WITH MINIMAL BOWEL TONES NOTED. PEG IS INTACT WITH CLEAN DSG. RECTAL TUBE IS OUT, DUKE DRAINING LIGHT ANALI.
--- NOTE | 2018-12-26 13:14 | NUR ---
NEW T.F. OF JEVITY 1.2 AT 10ML WITH 30ML FLUSH Q4 HOURS. PT STOOLING HAS SLOWED DOWN THUS FAR TODAY.
--- NOTE | 2018-12-26 17:37 | NUR ---
Patient has given this nursing staffing coordinator permission to access medical records, administer medications, and provide care on 12/26/2018
--- NOTE | 2018-12-26 18:29 | NUR ---
1430 TO 1530 APPROX. DOPAMINE GTT D/C PER DR SANDERS AND WILL FOLLOW BP STATUS. AT 1520 BP AND PT VS REPORTED AND NEW ORDER GIVEN FOR LEVOPHED AND D/C DOPAMINE. SEE VS. PT TOLERATED THE CHANGE WELL AND BP RAPPIDLY RAISED AFTER LEVOPHED STARTED.
--- NOTE | 2018-12-26 19:41 | NUR ---
PT HAS HAD NUMEROUS LIQUID STOOLS AND HAS NEEDED FREQUENT CLEANING. PT VS HAVE BEEN STABLE ON NS AT 100ML, CLINIMIX AT 100ML, AND LEVOPHED GTT AT 2MCG AND HOLDING. BUTTOCKS DSG AGAIN REPLACED THE SECOND TIME TODAY AND HAVE HAD SOME SUCCESS WITH THIS IN PROTECTING THE SKIN. PT HAS BEEN IN AND OUT THIS DAY AND SPEAKING TO THE DOCTOR REGARDING F/U CARE.
--- NOTE | 2018-12-26 20:00 | NUR ---
ASSUMED CARE OF PT. PT ALERT AND ORIENTED TO HIS NAME. PT IS FAILING TO FOLLOW COMMANDS AND IS NO LONGER NODDING YES/NO IN RESPONSE TO QUESTIONS. PT HAS LEVOPHED RUNNING AT 2 MCG/MIN. PIVOT 1.2 RUNNING AT 10 ML/HR WITH 30 ML FLUSH Q4. CLINIMIX RUNNING AT 100 ML/HR. PLEASE SEE FULL SHIFT ASSESSMENT.
--- NOTE | 2018-12-26 22:14 | NUR ---
REINSERTED RECTAL TUBE PATIENT HAS HAD NUMEROUS WATERY STOOLS. UPON ASSUMING CARE OF PT I NOTICED THAT THE PT WAS SITTING IN A LARGE WATERY POOL OF FECES. PT'S SACRAL WOUNDS WERE SATURATED IN FECAL MATTER. CLEANING CAUSES PT INTENSE PAIN AND I AM NOT CONFIDENT THAT DESPITE THOROUGH CLEANING WITH TOWELS AND WOUND CLEANSER WE ARE ABLE TO GET ALL OF THE FECAL MATTER OFF OF THE SACRAL/COCCYX WOUNDS.
--- NOTE | 2018-12-27 06:18 | NUR ---
SHIFT SUMMARY NO ACUTE CHANGES OVERNIGHT. PT ALERT BUT FAILS TO FOLLOW COMMANDS. PT CONTINUES TO BE WITHDRAWN AND IS NO LONGER NODDING HEAD YES/NO IN REPONSE TO QUESTIONS. PT STIFFENS UP AND ATTEMPTS TO PUSH NURSE AWAY WITH REPOSITIONING AND MAKEDA CARE. PT ABLE TO MAINTAIN MAP OVER 60 AND HR IN THE MID 50'S-LOW 60'S ON 2 MCG OF LEVOPHED. 400 ML DARK ANALI URINARY OUTPUT VIA DUKE. RECTAL TUBE HAD 500 ML OF LIQUID BROWN/YELLOW STOOL. WILL REPORT TO DAYSHIFT NURSE.
--- NOTE | 2018-12-27 07:15 | NUR ---
START OF SHIFT NOTE: PATIENT IS AWAKE, ALERT TO SELF, NONVERBAL THE MAJORITY OF TIME, HAS A GOOD MODERATE STRENGTH COUGH, DR. GUERRIER IN TO SEE PATIENT, DISCUSSED OPTIONS WITH WHO IS AT BEDSIDE, PATIENT NON COOPERATIVE WHEN TAKING BLOOD SUGARS, TRYING TO PUSH RN AWAY, DUKE CATHETER IN PLACE, RECTAL TUBE IN PLACE, PATIENT HAS EXTREMELY EXCORIATED SACRUM AND RECTAL AREA, CALAZIME CREAM APPLIED, MEDIPORT ON RIGHT UPPER CHEST ACCESSED AND HAS LEVOPHED INFUSING, JEVITY TUBE FEED INFUSING VIA PEG TUBE AT 10 CC/HR WITH 30 CC H2O FLUSH Q 4 HRS., PATIENT ALSO HAS CLINIMAX INFUSING AND IV FLUIDS AT 100 CC/HR, CALL LIGHT IN REACH, WILL CONTINUE TO MONITOR.
--- NOTE | 2018-12-27 09:45 | NUR ---
DR. LEE IN TO SEE PATIENT, NEW ORDERS RECEIVED.
--- NOTE | 2018-12-27 10:23 | NUR ---
Initial Visit: Palliative Care Consult for goal of care. Pt resting in bed upon arrival and appears comfortable. He does not respond verbaly when engaging in conversation. His Lia is present during visit. Engaged in therapeutic conversation about goals of care. Lia reports they are of [employer] artur. Pt lives at home with Lia and their youngest son Suleiman. Lia worked as a hospice nurse for many years and since has retired and is now involved with her jainism. She reports between herself, son, and many friends there is adequate support with any needs of care for Pt. Discussed conversation that Lia had with Dr Sanchez and Lia denies any questions or concerns. Lia reports she will discuss prognosis with her daughter who is the secondary decision maker for Pt's health care. Lia will then make a decision. She reports ultimately the Pt's goal is to return home. Instructed Lia this RN will return to visit tomorrow and to call paliative care if she would like a visit sooner. Spoke with Pt's nurse and she reports concerns about 's ability to provide adequate care for Pt. She reports the Pt has significant skin breakdown on his coccyx and Pt experiences significant constipation. Plan will be to continue therapeutic visits. If Pt's chooses home with hospice then hospice nurses will be able to manage wound care and constipation. Will consider other options pending family decision. Will remain available.
--- NOTE | 2018-12-27 10:43 | NUR ---
CHRISTOPHER, PALLIATIVE CARE IN TO SEE PATIENT, SPOKE WITH , WHO IS AT BEDSIDE, AWAITING DECISION ONCE SPEAKS WITH DAUGHTER.
--- NOTE | 2018-12-27 14:03 | NUR ---
PATIENT KEEPS MOANING AND MAKING GRUNTING NOISES, WHEN APPROACHED HE IS UNABLE/UNWILLING TO SHAKE HEAD OR NOD WHEN ASKED ABOUT PAIN IN VARIOUS AREAS OF THE BODY, REPOSITIONED, CREAM APPLIED TO GROIN, CATHETER CARE DONE, CALL LIGHT IN REACH, WILL CONTINUE TO MONITOR.
--- NOTE | 2018-12-27 15:00 | NUR ---
PATIENT WAS MOANING AND OBSERVED TO PICK AT RIGHT ARM PIV, CLOSE ASSESSMENT RESULTED IN FINDING INFLAMMATION OF RUE D/T PIV, PER DR. LEE, CLINIMAX WAS DISCONTINUED AND PIV REMOVED, PATIENT TOLERATED WELL.
--- NOTE | 2018-12-27 16:24 | NUR ---
PATIENT'S CALLED, UPDATE PROVIDED, PATIENT IS DOING WELL, CALL LIGHT IN REACH, WILL CONTINUE TO MONITOR.
--- NOTE | 2018-12-27 17:48 | NUR ---
SHIFT SUMMARY NOTE: PATIENT CONTINUES TO BE ON LEVOPHED AT 0.5 MCG AT THIS TIME WITH SBPs IN LOW 110s AND MAP >60, PATIENT IS AWAKE AND HAS EYES OPEN, MOANS AND GROANS AT TIMES BUT WILL NOT COOPERATE WHEN ASKED SPECIFIC QUESTIONS, TURNED FREQUENTLY D/T SKIN BREAKDOWN ON SACRUM/COCCYX AND BUTTOCKS, RECTAL TUBE IN PLACE, DRAINED 1000 CC'S OF LIGHT BROWN LIQUID STOOL, HYPERACTIVE BOWEL TONES IN ALL 4 QUADRANTS, PEG TUBE IN PLACE, INFUSING JEVITY 1.2 AT 10 CC/HR WITH 30 CC WATER FLUSHES EVERY 4 HOURS, MEDIPORT ON RIGHT UPPER CHEST ACCESSED AND HAS NS, ALBUMIN, AND LEVOPHED INFUSING, PIV IN R AC WAS REMOVED D/T SKIN INFLAMMATION AND REDNESS, AND LEAKING, PER DR. LEE CLINIMAX WAS DISCONTINUED, PATIENT CONTINUES TO BE ON BOWEL PROTOCOL, DUKE CATHETER DRAINED 700 CC OF DARK YELLOW URINE, PATIENT REMAINS AFEBRILE, VSS, ON RA SATING IN UPPER 90s, FOR DETAILS SEE SHIFT ASSESSMENT DOCUMENTATION AND NURSES NOTES, CALL LIGHT IN REACH, WILL CONTINUE TO MONITOR AND GIVE REPORT TO ONCOMING QUARRY WORKER.
--- NOTE | 2018-12-27 19:30 | NUR ---
ASSUMED PT CARE AT 1915 PT RESTING IN BED WITH CALL LIGHT IN REACH. DOESN'T RESPOND TO ANY VERBAL COMMANDS; MOANS AND GROANS. PT'S EYES ARE OPEN AND TRACKS APPROPRIATELY. LEVOPHED INFUSING VIA RIGHT UPPER CHEST MEDIPORT AT 0.5MCG/MIN. NS TKO. TUBE FEEDING INFUSING CONTINUOUSLY; JEVITY 1.2 AT 10CC/HR. RECTAL TUBE IN PLACE. DUKE CATHETER IS PATENT AND DRAINING TO GRAVITY. PT APPEARS COMFORTABLE AT THIS TIME. BP 113/49 WITH MAP 69; HR 48; RR 19; OXYGEN SATURATION 98%RA; AND AFEBRILE AT 97.9.
[2018-12-28 03:41] LABS: BASOPHILS ABSOLUTE AUTO 0.01 K/mm3 (0.00-0.23); BASOPHILS PERCENT AUTO 0 % (0-2); EOSINOPHILS PERCENT AUTO 0 % (0-6); Hematocrit 27.2 % (37.0-53.0); Hemoglobin 8.3 g/dL (13.5-17.5); IMMATURE GRAN ABSOLUTE AUTO 0.07 K/mm3 (0.00-0.10); IMMATURE GRAN PERCENT AUTO 1 % (0-1); LYMPHOCYTES ABSOLUTE AUTO 0.66 K/mm3 (0.84-5.20); LYMPHOCYTES PERCENT AUTO 10 % (21-46); MONOCYTES PERCENT AUTO 6 % (4-13); Mean Corpuscular HGB 29.5 pg (26.0-34.0); Mean Corpuscular HGB Conc 30.5 g/dL (31.5-36.5); Mean Corpuscular Volume 97 fL (80-100); Mean Platelet Volume 10.8 fL (9.1-12.4); NEUTROPHILS PERCENT AUTO 84 % (41-73); Platelet Count 169 K/mm3 (150-400); RDW Coefficient Variation 17.6 % (11.7-14.2); RDW Standard Deviation 62.4 fL (35.1-46.3); Red Blood Cell Count 2.81 M/mm3 (4.30-5.90); White Blood Cell Count 6.84 K/mm3 (4.00-11.30)
[2018-12-28 03:59] LABS: Albumin, Blood 2.4 g/dL (3.4-5.0); Anion Gap 6 mmol/L (6-16); Blood Urea Nitrogen 20 mg/dL (8-24); Bun/Creatinine Ratio 35.2 (12.0-20.0); CO2, Blood 30 mmol/L (21-32); Calcium, Blood 7.4 mg/dL (8.5-10.1); Chloride, Blood 116 mmol/L (98-108); Creatinine, Blood 0.57 mg/dL (0.60-1.20); Glomerular Filtration Rate >60 (60-); Glucose, Blood 94 mg/dL (70-99); Magnesium, Blood 2.8 mg/dL (1.6-2.4); Phosphorus, Blood 2.4 mg/dL (2.5-4.9); Potassium, Blood 2.9 mmol/L (3.5-5.5); Sodium, Blood 152 mmol/L (136-145)
--- NOTE | 2018-12-28 04:18 | NUR ---
PLACED CALL TO DR. LEE'S ANSWERING SERVICE
--- NOTE | 2018-12-28 06:30 | NUR ---
END OF SHIFT SUMMARY PT HAS REMAINED NONVERBAL WITH NONSENSICAL MOANS/GROANS. UNABLE TO COMMUNICATE DISCOMFORT OR NEEDS. PT HAS BEEN REPOSITIONED AND CHECKED ON AT LEAST EVERY TWO HOURS, IF NOT MORE FREQUENTLY T/O SHIFT. LEVOPHED WAS AT 0.5MCG/KG/MIN AT BEGINNING OF SHIFT; ABLE TO TITRATE OFF BY 1999; HOWEVER, LATER IN THE SHIFT WHEN PT FELL ASLEEP; SBP DECREASED TO THE 80'S WITH MAP LESS THAN 60. LEVOPHED TURNED BACK ON AND TITRATED TO EFFECT. LEVOPHED IS CURRENTLY AT 2MCG/KG/MIN WITH BP 110/54. PT HAS HAD A COUPLE EPISODES OF SINUS GREG IN THE 40'S. MOSTLY NOTED WHILE SLEEPING. PT IS GENERALLY SINUS GREG TO NSR 50-60'S WHILE AWAKE. ABDOMEN CONTINUES TO BE DISTENDED TO RIGHT QUADRANTS, TENDER, WITH HYPERACTIVE BTX4. JEVITY 1.2 INFUSING AT GOAL OF 10CC/HR WITH 60CC WATER FLUSHES Q4HRS D/T DR. LEE INCREASING FREE WATER D/T ELEVATED SODIUM LEVEL THIS AM. RECTAL TUBE REMAINS PATENT AND DRAINING TO GRAVITY WITH A FEW EPISODES OF PT LEAKING AROUND THE TUBE. BALLOON WAS DEFLATED AND REINFLATED WITH 60CC WATER WHICH APPEARED EFFECTIVE. PT SEEMS MORE COMFORTABLE WITH RECTAL TUBE D/T WOUND TO SACRUM, WHICH APPEARS TO BE SLOUGHING OFF ESCHAR TISSUE AFTER EACH LEAKING EPISODE FROM RECTAL TUBE. DUKE CATH IS PATENT AND DRAINING DARK, YELLOW URINE TO GRAVITY. PT APPEARS COMFORTABLE AT THIS TIME. NO SIGNS OF ACUTE DISTRESS NOTED.
--- NOTE | 2018-12-28 08:10 | NUR ---
Report given by Geronimo GIBSON. Patient sitting up in bed laying on Right side. He is on RA and sats mid to upper 90%'s. He has noscensical communication and moans and yels noises out. His upper extremities are contracted more left than right. He has mediport to RU chest and is infusing Levophed at 2mcg/hr and has systolic 110 and tried to reduce for short period to 1.5 mcg/hr and he dropped to systolic 70 and returned to 2 mcg/hr. He has NS at 100ml/hr. He has PEG tube to RUQ and has infusing Jevity 1.2 at 10ml/hr and 60mlwater Q4 for high sodium. He has open wound to coccyx withn laying on stay dry and washed wound. Reposition frequently. Mepelx to heels bilaterally
--- NOTE | 2018-12-28 09:40 | NUR ---
Changed stay dries and rewashe wound and repositioned. in room and this am Dr Sanchez discussed code status and she will talk with daughter and they will make decsion on Wednesday when she arrives. patient very stiff to repositiona nd pillow all areas. Levophed remains at2.0 mcg/hr.
--- NOTE | 2018-12-28 11:30 | NUR ---
is back and called Palliative care to talk with her and she was then christina to [facility] to see Father Luke. Levophed remains at 2 mcg/hr and started D5 at 75ml/hr, CBG 89, no coverage needed. Repositied and changes stay dry. Medicated per MAR,
--- NOTE | 2018-12-28 12:05 | NUR ---
Pt visit this afternoon. Pt resting in bed and appears comfortable. FLACC score of 0/10. Pt does not respond verbally with questions. Pt's Lia is present during visit. Lia reports discussing options with her daughter. The plan is for family to arrive on Wednesday and then discontinue pressors and change his code status to DNR on Wednesday as well. Lia reports being aware of the possbility of once discontinuing the medications the Pt may not make it home. She reports the ultimate goal is for him to go on hospice but understands that may not be an option. Validated Lia's concerns as she states that this is not an easy decision. Offered emotional support and listened as Lia discusses the importance of family and the presence of family when stopping the medication. Instructed Lia that palliative care will F/U with daily therapeutic visits. No other concerns reported at this time. Will remain available.
--- NOTE | 2018-12-28 13:30 | NUR ---
Patient continues to leak around rectal tube and changed linen and repoistioned. Have not been able to wean from Levophed and his systolic drops with any small changes. D% continues at 75ml/hr. He remains on RA. He is moaning a little more frequent but when asked if in pain no immediate reponse or griamcing.
--- NOTE | 2018-12-28 15:09 | NUR ---
Met pt. in bed resting and the family members in the room, pt. repoprts doing well, offered prayers and blessed pt.
--- NOTE | 2018-12-28 15:30 | NUR ---
No significant changes with patient. Levophed remains at 2 mcg/hr, and D5 at 75ml/hr and intermitent Albumin 25%. He remains on RA and sast david to upper 90%'s. We are changing linen every reposition for leaking rectal tube and stool is very watery and waiting for hard bowel to move down. Very stiff to roll for positioning. TF increased to 20ml/hr no changein flush.
--- NOTE | 2018-12-28 18:41 | NUR ---
No changes from last note. CBG 155 and coverd with 3 units Humalog. Repositied and changed.
[2018-12-29 03:52] LABS: BASOPHILS PERCENT AUTO 0 % (0-2); EOSINOPHILS PERCENT AUTO 0 % (0-6); Hematocrit 28.1 % (37.0-53.0); Hemoglobin 8.7 g/dL (13.5-17.5); IMMATURE GRAN ABSOLUTE AUTO 0.04 K/mm3 (0.00-0.10); IMMATURE GRAN PERCENT AUTO 1 % (0-1); LYMPHOCYTES ABSOLUTE AUTO 0.54 K/mm3 (0.84-5.20); LYMPHOCYTES PERCENT AUTO 8 % (21-46); MONOCYTES ABSOLUTE AUTO 0.28 K/mm3 (0.16-1.47); MONOCYTES PERCENT AUTO 4 % (4-13); Mean Corpuscular HGB 30.1 pg (26.0-34.0); Mean Corpuscular Volume 97 fL (80-100); Mean Platelet Volume 10.7 fL (9.1-12.4); NEUTROPHILS ABSOLUTE AUTO 6.38 K/mm3 (1.96-9.15); NEUTROPHILS PERCENT AUTO 88 % (41-73); Platelet Count 171 K/mm3 (150-400); RDW Coefficient Variation 17.8 % (11.7-14.2); RDW Standard Deviation 62.4 fL (35.1-46.3); Red Blood Cell Count 2.89 M/mm3 (4.30-5.90); White Blood Cell Count 7.24 K/mm3 (4.00-11.30)
[2018-12-29 04:10] LABS: Albumin, Blood 2.8 g/dL (3.4-5.0); Anion Gap 7 mmol/L (6-16); Blood Urea Nitrogen 17 mg/dL (8-24); Bun/Creatinine Ratio 29.1 (12.0-20.0); CO2, Blood 30 mmol/L (21-32); Calcium, Blood 7.7 mg/dL (8.5-10.1); Chloride, Blood 115 mmol/L (98-108); Creatinine, Blood 0.58 mg/dL (0.60-1.20); Glomerular Filtration Rate >60 (60-); Glucose, Blood 134 mg/dL (70-99); Magnesium, Blood 2.9 mg/dL (1.6-2.4); Phosphorus, Blood 1.8 mg/dL (2.5-4.9); Potassium, Blood 3.1 mmol/L (3.5-5.5); Sodium, Blood 152 mmol/L (136-145)
--- NOTE | 2018-12-29 07:55 | NUR ---
[id number]: AWAKE, TRACKS CLOSELY, VOCALIZES AT TIMES. VSS ON 2MIC/MIN LEVOPHED. SB. RECTAL TUBE BALOON DEFLATED. RECTUM DIGITALLY ASSESSED, NO FORMED STOOL PALPATED. BALOON REINFLATED W/ 45 CC WATER. LEAKING LG AMOUNTS WATERY STOOL AROUND TUBE. TURNED, CLEANED, LINENS CHANGED AT FREQ INTERVALS. SACRAL WOUND WET, OPEN, DIFFICULT TO ISOLATE FROM STOOL. MEPELEX USED BUT BECOMES SOILED. MULTILAYER DRY-GINGER PADS USED, SOMEWHAT SUCCESSFUL. SBP 105-125, LEVOPHED DECREASED BY 0.5-1CC INCREMENT, MOSTLY COINCIDING W/ MIDODRINE. 1.2MIC/MIN IN A.M. CBG > 100, <150, NO SLIDING SCALE REQUIRED. DISCUSSES LANTUS W/ P. TRISHA, 20 UNITS RESUMED. TUBE FEEDING 20CC/HR W/ NO RESIDUALS OBTAINED, RATE INCREASED TO 30CC (GOAL) 2 0001.
--- NOTE | 2018-12-29 08:06 | NUR ---
ASSUMED CARE REPORT FROM PAIGE SHUKLA. PATIENT REPOSITIONED. MONITOR SHOWS BRADYCARDIA 39-41 BPM. PATIENT ALERT. SMILES AT VAZQUEZ. LEVOPHED AT 4 MCG/MIN. TF AT GOAL
--- NOTE | 2018-12-29 08:09 | NUR ---
AT BEDSIDE. SHE REPORTS 5 OF THEIR 7 CHILDREN WILL BE HERE TOMORROW AND PLAN IS TO STOP LEVOPHED AFTER THEY ARRIVE. THEY PLAN TO TAKE PATIENT HOME TO CARE FOR HIM AFTER LEVOPHED IS STOPPED
--- NOTE | 2018-12-29 08:58 | NUR ---
MD VISIT DR. GUERRIER IN. [facility] ORDERED
--- NOTE | 2018-12-29 10:07 | NUR ---
LEVOPHED TITRATED TO 1 MCG/MIN
--- NOTE | 2018-12-29 13:50 | NUR ---
Met pt. lying in bed and the in the room with him, Pt is weak and unresponsive prayed for the pt. and offered spiritual confort,
--- NOTE | 2018-12-29 14:25 | NUR ---
LEVOPHED HAS BEEN OFF SINCE THIS AM. DR. LEE ORDERED HOS TO FOLLOW K[facility] AND DC'D LACTULOSE.
--- NOTE | 2018-12-29 16:27 | NUR ---
REPORT GIVEN TO PAIGE VALENCIA
--- NOTE | 2018-12-29 16:45 | NUR ---
RECEIVED REPORT FROM PAIGE CRUZ, AND ASSUMED CARE OF PT.
--- NOTE | 2018-12-29 18:31 | NUR ---
NURSING SUMMARY ALERT, NON-VERBAL, GRUNTS, TRACKS WITH EYES, HX OF TRAUMATIC BRAIN INJURY. SINUS GREG - SINUS RHYTHM ON MONITOR, HR 40-63 WITH A BBB, LEVOPHED DC'D AROUND 0900. VSS. LUNGS DIM, ROOM AIR, DUKE DRAINING YELLOW URINE. RECTAL TUBE IN PLACE DRAINING MENDOZA LIQUID STOOL. BUTTOCK/COCCYX AREA IS VERY EXCORIATED, ALSO HAS A DEEP HOLE/WOUND THAT REQUIRES SMALL AMT OF PACKING AND DRESSING CHANGES NEEDED. TURNING PT EVERY [address]UBE IN [address] INFUSING JEVITY 1.2 FEEDINGS AT 30 ML/HR WHICH IS GOAL RATE. PT RECEIVES H20 60 CC FLUSHES EVERY 4 HOURS. BOWELS SOUNDS PRESENT. D5 INFUSING AT 100 ML/HR INTO RIGHT UPPER CHEST MEDIPORT. PLAN IS TO TRANSPORT HOME TOMORROW WITH HOSPICE BETWEEN 1100 - 1230. FAMILY CURRENTLY AT BEDSIDE.
[2018-12-30 04:11] LABS: BASOPHILS PERCENT AUTO 0 % (0-2); EOSINOPHILS PERCENT AUTO 0 % (0-6); Hematocrit 27.7 % (37.0-53.0); Hemoglobin 8.4 g/dL (13.5-17.5); IMMATURE GRAN ABSOLUTE AUTO 0.05 K/mm3 (0.00-0.10); IMMATURE GRAN PERCENT AUTO 1 % (0-1); LYMPHOCYTES ABSOLUTE AUTO 0.52 K/mm3 (0.84-5.20); LYMPHOCYTES PERCENT AUTO 8 % (21-46); MONOCYTES ABSOLUTE AUTO 0.28 K/mm3 (0.16-1.47); MONOCYTES PERCENT AUTO 4 % (4-13); Mean Corpuscular HGB 29.6 pg (26.0-34.0); Mean Corpuscular HGB Conc 30.3 g/dL (31.5-36.5); Mean Corpuscular Volume 98 fL (80-100); Mean Platelet Volume 10.9 fL (9.1-12.4); NEUTROPHILS ABSOLUTE AUTO 5.86 K/mm3 (1.96-9.15); NEUTROPHILS PERCENT AUTO 87 % (41-73); Platelet Count 150 K/mm3 (150-400); RDW Coefficient Variation 17.8 % (11.7-14.2); RDW Standard Deviation 62.9 fL (35.1-46.3); Red Blood Cell Count 2.84 M/mm3 (4.30-5.90); White Blood Cell Count 6.71 K/mm3 (4.00-11.30)
[2018-12-30 04:27] LABS: Magnesium, Blood 2.3 mg/dL (1.6-2.4)
[2018-12-30 04:28] LABS: Albumin, Blood 2.4 g/dL (3.4-5.0); Anion Gap 5 mmol/L (6-16); Blood Urea Nitrogen 13 mg/dL (8-24); Bun/Creatinine Ratio 21.3 (12.0-20.0); CO2, Blood 30 mmol/L (21-32); Calcium, Blood 7.5 mg/dL (8.5-10.1); Chloride, Blood 110 mmol/L (98-108); Creatinine, Blood 0.61 mg/dL (0.60-1.20); Glomerular Filtration Rate >60 (60-); Glucose, Blood 138 mg/dL (70-99); Phosphorus, Blood 2.8 mg/dL (2.5-4.9); Potassium, Blood 3.5 mmol/L (3.5-5.5); Sodium, Blood 145 mmol/L (136-145)
--- NOTE | 2018-12-30 07:50 | NUR ---
MD VISIT DR. GUERRIER IN. HOSPICE ORDERS. DISCHARGE HOME ORDERS. FAMILY GATHERED AT BEDSIDE.
--- NOTE | 2018-12-30 08:33 | NUR ---
[id number]: AWAKE, LESS INTERACTIVE, COOPERATIVE THAN PREV. MONITOR SB, VSS. STOOL LESS WATERY, MINIMAL LEAKAGE AROUND RECTAL TUBE. SACRAL WOND DRESSED W/ABSORBANT FLUFF, MEPELEX, CHANGED X 2 WHEN SOILED W/FECES. TURNED SIDE TO SIDE. SLEPT SHORT INTERVALS. NO INSULIN COVERAGE/ PROTOCOL. FAMILY VISITING EARLY A.M.
[2018-12-30] MEDS ORDERED: ACET325S PR (09:24)
[2018-12-30] MEDS ORDERED: Fludrocortison0.1 MG PO (09:33)
[2018-12-30] MEDS ORDERED: INSULANPEN SC (09:36)
[2018-12-30] MEDS ORDERED: HUMALOG KW200 UNIT/1 SC (09:40)
[2018-12-30] MEDS ORDERED: ONDANSETRON4 MG/2 ML IV (09:44)
[2018-12-30] MEDS ORDERED: MIDO5 PT (09:45)
--- NOTE | 2018-12-30 10:35 | NUR ---
NURSING SUMMARY SLEEPY, WAKES EASILY TO VOICE, FAMILY AT BEDSIDE. SB ON MONITOR, HR 40'S, OCCASSIONAL PVC'S, VSS, DISCONTINUED MONITOR IN PREPARATION FOR GOING HOME. LUNGS CLEAR THROUGHOUT, SHALLOW BREATHS, ROOM AIR. PEG TUBE IN PLACE, NO RESIDUALS, DISCONTINUED JEVITY 1.2 FEEDINGS AND FLUSHED WITH 60 CC WATER IN PREPARATION FOR GOING HOME. DUKE IN PLACE, DRAINING YELLOW URINE, PT WILL DISCHARGE HOME WITH THE DUKE. RECTAL TUBE IN PLACE, DRAINING MENDOZA LIQUID STOOL, WILL DISCONTINUE PRIOR TO DISCHARGE. REPOSITIONED PT TWICE THIS MORNING, CLEAN AND DRY BEDDING BOTH TIMES. MEDIPORT FLUSHED WITH 20 CC NS AND 5 CC HEPARIN AND THEN MEDIPORT DEACCESSED. PT TOLERATED WELL, NO BLEEDING AT SITE UPON REMOVAL. AMBULANCE PLANNING TO PICK PT UP FOR TRANSPORT HOME AROUND 1100. FAMILY INFORMED AND PREPARING AT HOME.
--- NOTE | 2018-12-30 11:10 | NUR ---
RECTAL TUBE DISCONTINUED BY KENY CRUZ RN.
--- NOTE | 2018-12-30 11:30 | NUR ---
DISCHARGE INSTRUCTIONS GIVEN TO PT'S SON, GEORGINA HERNANDEZ JR, ANSWERED ALL QUESTIONS ASKED. AMBULANCE SERVICE PICKED UP PT AT 1130 AND IS TRANSPORTING PT HOME WHERE HIS AND FAMILY ARE AWAITING HIS ARRIVAL.
--- NOTE | 2018-12-30 14:34 | NUR ---
Pt. is discharged and went home on hospece,prayed for pt and blesed pt.
== END 2018-12-30 11:30 | disposition hospice, home (50) | DRG 698 ==
LOC: ER 13:21 → ICUE 17:16 → ICUW 17:21 → ICUE 17:21
PROVIDERS: Emergency Medicine; Internal Medicine Critical Care Medicine; Internal Medicine Pulmonary Disease; Nurse Practitioner Acute Care; ADMIT Family Medicine
DX: T83.511A Infection and inflammatory reaction due to indwelling urethral catheter, initial encounter (principal); A41.9 Sepsis, unspecified organism; J69.0 Pneumonitis due to inhalation of food and vomit; R65.21 Severe sepsis with septic shock; E43 Unspecified severe protein-calorie malnutrition; E87.0 Hyperosmolality and hypernatremia; K56.7 Ileus, unspecified; C64.9 Malignant neoplasm of unspecified kidney, except renal pelvis; G93.1 Anoxic brain damage, not elsewhere classified; E87.1 Hypo-osmolality and hyponatremia; E27.40 Unspecified adrenocortical insufficiency; N17.9 Acute kidney failure, unspecified; E87.2 Acidosis; E11.9 Type 2 diabetes mellitus without complications; Z51.5 Encounter for palliative care; I10 Essential (primary) hypertension; I95.9 Hypotension, unspecified; K56.41 Fecal impaction; E83.39 Other disorders of phosphorus metabolism; E87.6 Hypokalemia; L89.109 Pressure ulcer of unspecified part of back, unspecified stage; I49.8 Other specified cardiac arrhythmias; E78.5 Hyperlipidemia, unspecified; E78.1 Pure hyperglyceridemia; N40.0 Benign prostatic hyperplasia without lower urinary tract symptoms; M10.9 Gout, unspecified; Z66 Do not resuscitate; Z79.4 Long term (current) use of insulin; Z86.718 Personal history of other venous thrombosis and embolism; Z93.1 Gastrostomy status; Z92.21 Personal history of antineoplastic chemotherapy; Z87.891 Personal history of nicotine dependence; Z86.74 Personal history of sudden cardiac arrest; Z68.20 Body mass index [BMI] 20.0-20.9, adult; Z86.73 Personal history of transient ischemic attack (TIA), and cerebral infarction without residual deficits
CPT/HCPCS: 36415; 36600; 51702; 71045; 74018; 74176; 80048; 80053; 80069; 80202; 81001; 82330; 82533; 82550; 82803; 82947; 83605; 83735; 84100; 84132; 84145; 84295; 84443; 84478; 84484; 85025; 85027; 85610; 85730; 87040; 87070; 87077; 87086; 87186; 87205; 87486; 87581; 87633; 87798; 93005; 93010; 93308; 93321; 94644; 94760; 96365; 99285-25; J1265; J1642; J1720; J1956; J2543; J3010; J3370; J3480; J7030; J7050; J7060; J7070; J7120; P9041; P9046

== ENCOUNTER 2019-01-09 08:59 | Observation (INO) | payer MEDICARE, OTHER ==
[~2019-01-09] VITALS: Ht 167.6 cm; Wt 52.2 kg
[~2019-01-09 08:59] MED LIST changes: +ACET325S PR; +Fludrocortison0.1 MG PO; +HUMALOG KW200 UNIT/1 SC; +HYDR1TAB94 PT; +INSULANPEN SC; +MIDO5 PT; +ONDA4 PT
[2019-01-09 11:37] LABS: BASOPHILS ABSOLUTE AUTO 0.01 K/mm3 (0.00-0.23); BASOPHILS PERCENT AUTO 0 % (0-2); EOSINOPHILS ABSOLUTE AUTO 0.03 K/mm3 (0.00-0.68); EOSINOPHILS PERCENT AUTO 1 % (0-6); Hemoglobin 9.6 g/dL (13.5-17.5); IMMATURE GRAN ABSOLUTE AUTO 0.04 K/mm3 (0.00-0.10); IMMATURE GRAN PERCENT AUTO 1 % (0-1); LYMPHOCYTES ABSOLUTE AUTO 0.55 K/mm3 (0.84-5.20); LYMPHOCYTES PERCENT AUTO 11 % (21-46); MONOCYTES ABSOLUTE AUTO 0.32 K/mm3 (0.16-1.47); MONOCYTES PERCENT AUTO 6 % (4-13); Mean Corpuscular HGB 29.2 pg (26.0-34.0); Mean Corpuscular Volume 97 fL (80-100); Mean Platelet Volume 10.1 fL (9.1-12.4); NEUTROPHILS ABSOLUTE AUTO 4.06 K/mm3 (1.96-9.15); NEUTROPHILS PERCENT AUTO 81 % (41-73); Platelet Count 152 K/mm3 (150-400); RDW Coefficient Variation 17.2 % (11.7-14.2); RDW Standard Deviation 61.1 fL (35.1-46.3); Red Blood Cell Count 3.29 M/mm3 (4.30-5.90); White Blood Cell Count 5.01 K/mm3 (4.00-11.30)
[2019-01-09 11:52] LABS: Alanine Aminotransfer (ALT/SGP 26 U/L (12-78); Albumin, Blood 2.6 g/dL (3.4-5.0); Albumin/Globulin Ratio 0.6 (0.8-1.8); Alk Phos 219 U/L (50-136); Anion Gap 8 mmol/L (6-16); Aspartate Aminotrans (AST/SGOT 7 U/L (12-37); Bilirubin, Total 1.4 mg/dL (0.1-1.0); Blood Urea Nitrogen 13 mg/dL (8-24); Bun/Creatinine Ratio 19.6 (12.0-20.0); CO2, Blood 29 mmol/L (21-32); Calcium, Blood 8.4 mg/dL (8.5-10.1); Chloride, Blood 108 mmol/L (98-108); Creatinine, Blood 0.66 mg/dL (0.60-1.20); Globulin, Blood 4.6 g/dL (2.2-4.0); Glomerular Filtration Rate >60 (60-); Glucose, Blood 101 mg/dL (70-99); Potassium, Blood 3.3 mmol/L (3.5-5.5); Sodium, Blood 145 mmol/L (136-145); Total Protein, Blood 7.2 g/dL (6.4-8.2)
--- NOTE | 2019-01-09 19:25 | NUR ---
REPORT RECEIVED FRON HAT AND CAP OPENER SCOUT, NO ACUTE ISSUS UPON ARRIVAL TO THE FLOOR. DUKE CATH IN PLACE AND DRESSING ON BACKSIDE IS CLEAN DRY AND INTACT. WILL CONTINUE TO MONITOR FOR CHANGES.
[2019-01-10 03:00] LABS: Source, Urine Catheter
[2019-01-10 03:23] LABS: Appearance, Urine Cloudy (Clear); Bilirubin, Urine Neg (Neg); Blood, Urine 3+ (Neg); Color, Urine Amber (P-Yellow); Glucose Qualitative, Urine Neg (Neg); Ketones, Urine Neg (Neg); Leukocyte Esterase, Urine 2+ (Neg); Nitrite, Urine Pos (Neg); Protein, Urine 2+ (Neg); Specific Gravity, Urine 1.015 (1.003-1.022); Urobilinogen, Urine 3+ (Normal)
[2019-01-10 03:30] LABS: Bacteria Many /hpf; Red Blood Cells, Urine 0-2 /hpf (0-2); Squamous Epithelial Cells Not Seen /hpf (Few); White Blood Cells, Urine TNTC /hpf (0-5)
--- NOTE | 2019-01-10 04:18 | NUR ---
SHIFT SUMMARY THE PATIENT WAS ADMITTED BY DAYSHIFT AT THE END OF THEIR SHIFT. THE PATIENT PRESENTED WITH LUNGS WITH COARSE SOUNDS, A&O TO SELF AND WITH VITALS WNL. THE PATIENT DOES NOT TALK. THE PATIENT RECEIVED ORDERS FOR PEG TUBE FEEDINGS, CONTINOUS AT 50 ML/HR WITH A 20 ML/HR FLUSH. THE PATIENT'S TUBE FEEDING STARTED AT 2030 HRS. THE PATIENT IS SLEEPING AT THIS TIME, WILL CONTINUE TO MONITOR.
[2019-01-10] MEDS ORDERED: GAVILAX17 GM PT (10:13)
[2019-01-10] MEDS ORDERED: MORP20L PT (10:13)
--- NOTE | 2019-01-10 12:15 | NUR ---
DISCHARGED TO HOME AT 1202 VIA [facility] WITH INSTRUCTIONS AND A FEW SUPPLIES. HE HAD NO BELONGINGS. SPOKE WITH HIS BY PHONE. JAILENE THE GALVANIZING POT RUNNER ALSO DID AND I CALLED HER TO LET LATIA KNOW WHAT TIME HE WAS GETTING PICKED UP HERE. SHE SAID SHE JUST WENT AND PICKED UP A GENERATOR FOR HOME.
[2019-01-11] MEDS ORDERED: MAPAP325 MG/10. PT (20:16)
[2019-01-11] MEDS ORDERED: HYDR1TAB94 PO (20:17)
[2019-01-11] MEDS ORDERED: Milk Of Ma400 MG/5 M PT (20:17)
== END 2019-01-10 12:04 | disposition home health service (06) ==
LOC: ER 08:59 → MEDS 09:00 → ENPENDDIS 01-10 09:53 → MEDS 01-10 12:04
PROVIDERS: Emergency Medicine; Hospitalist; ADMIT Internal Medicine
DX: J69.0 Pneumonitis due to inhalation of food and vomit (principal); I95.89 Other hypotension; E11.9 Type 2 diabetes mellitus without complications; C64.9 Malignant neoplasm of unspecified kidney, except renal pelvis; L89.324 Pressure ulcer of left buttock, stage 4; L89.314 Pressure ulcer of right buttock, stage 4; R62.7 Adult failure to thrive; G89.29 Other chronic pain; E87.0 Hyperosmolality and hypernatremia; E78.5 Hyperlipidemia, unspecified; Z86.711 Personal history of pulmonary embolism; Z86.73 Personal history of transient ischemic attack (TIA), and cerebral infarction without residual deficits; Z79.899 Other long term (current) drug therapy; Z79.4 Long term (current) use of insulin; Z88.5 Allergy status to narcotic agent; Z88.8 Allergy status to other drugs, medicaments and biological substances; Z87.891 Personal history of nicotine dependence
CPT/HCPCS: 36415; 71045; 80053; 81001; 82947; 83605; 85025; 87040; 87077; 87086; 87186; 99285-25; G0378; J1815

== ENCOUNTER 2019-01-11 18:39 | Inpatient (IN) | payer MEDICARE, OTHER ==
[~2019-01-11] VITALS: Ht 185.4 cm; Wt 65.0 kg
[~2019-01-11 18:39] MED LIST changes: +GAVILAX17 GM PT; +MORP20L PT
[2019-01-11 19:31] LABS: BASOPHILS ABSOLUTE AUTO 0.02 K/mm3 (0.00-0.23); BASOPHILS PERCENT AUTO 0 % (0-2); Hematocrit 32.4 % (37.0-53.0); Hemoglobin 9.3 g/dL (13.5-17.5); LYMPHOCYTES ABSOLUTE AUTO 1.63 K/mm3 (0.84-5.20); LYMPHOCYTES PERCENT AUTO 17 % (21-46); MONOCYTES PERCENT AUTO 5 % (4-13); Mean Corpuscular HGB 29.2 pg (26.0-34.0); Mean Corpuscular HGB Conc 28.7 g/dL (31.5-36.5); Mean Platelet Volume 10.4 fL (9.1-12.4); Platelet Count 228 K/mm3 (150-400); RDW Coefficient Variation 17.5 % (11.7-14.2); RDW Standard Deviation 65.1 fL (35.1-46.3); Red Blood Cell Count 3.19 M/mm3 (4.30-5.90); White Blood Cell Count 9.66 K/mm3 (4.00-11.30)
[2019-01-11 19:39] LABS: EOSINOPHILS ABSOLUTE AUTO 0.08 K/mm3 (0.00-0.68); EOSINOPHILS PERCENT AUTO 1 % (0-6); IMMATURE GRAN ABSOLUTE AUTO 0.03 K/mm3 (0.00-0.10); IMMATURE GRAN PERCENT AUTO 0 % (0-1); Mean Corpuscular Volume 102 fL (80-100); NEUTROPHILS PERCENT AUTO 77 % (41-73)
[2019-01-11 19:40] LABS: Alanine Aminotransfer (ALT/SGP 21 U/L (12-78); Albumin, Blood 2.4 g/dL (3.4-5.0); Albumin/Globulin Ratio 0.5 (0.8-1.8); Alk Phos 168 U/L (50-136); Anion Gap 9 mmol/L (6-16); Aspartate Aminotrans (AST/SGOT 17 U/L (12-37); Blood Urea Nitrogen 22 mg/dL (8-24); Bun/Creatinine Ratio 31.2 (12.0-20.0); CO2, Blood 25 mmol/L (21-32); Calcium, Blood 8.2 mg/dL (8.5-10.1); Chloride, Blood 111 mmol/L (98-108); Creatinine, Blood 0.71 mg/dL (0.60-1.20); Globulin, Blood 4.8 g/dL (2.2-4.0); Glomerular Filtration Rate >60 (60-); Glucose, Blood 230 mg/dL (70-99); Potassium, Blood 3.8 mmol/L (3.5-5.5); Sodium, Blood 145 mmol/L (136-145); Total Protein, Blood 7.2 g/dL (6.4-8.2); Troponin I 0.033 ng/mL (0.000-0.040)
[2019-01-11] MEDS ORDERED: MAPAP325 MG/10. PT (20:16)
[2019-01-11] MEDS ORDERED: Milk Of Ma400 MG/5 M PT (20:17)
[2019-01-11] MEDS ORDERED: HYDR1TAB94 PO (20:17)
[2019-01-12 03:37] LABS: Source, Urine Catheter
[2019-01-12 03:39] LABS: Bilirubin, Urine Neg (Neg); Blood, Urine 3+ (Neg); Glucose Qualitative, Urine Neg (Neg); Ketones, Urine 1+ (Neg); Leukocyte Esterase, Urine 2+ (Neg); Nitrite, Urine Pos (Neg); Protein, Urine 3+ (Neg); Urobilinogen, Urine 2+ (Normal)
[2019-01-12 03:42] LABS: Appearance, Urine Hazy (Clear); Color, Urine Amber (P-Yellow)
[2019-01-12 04:17] LABS: Amorphous Light (0-Heavy); Bacteria Mod /hpf; Mucus Light (0-Heavy); Red Blood Cells, Urine 0-2 /hpf (0-2); Squamous Epithelial Cells Rare /hpf (Few); White Blood Cells, Urine 50-100 /hpf (0-5)
[2019-01-12 04:38] LABS: BASOPHILS PERCENT AUTO 0 % (0-2); Hematocrit 26.4 % (37.0-53.0); Hemoglobin 7.9 g/dL (13.5-17.5); LYMPHOCYTES ABSOLUTE AUTO 0.46 K/mm3 (0.84-5.20); LYMPHOCYTES PERCENT AUTO 10 % (21-46); MONOCYTES ABSOLUTE AUTO 0.24 K/mm3 (0.16-1.47); MONOCYTES PERCENT AUTO 5 % (4-13); Mean Corpuscular HGB 29.4 pg (26.0-34.0); Mean Corpuscular HGB Conc 29.9 g/dL (31.5-36.5); Mean Platelet Volume 10.3 fL (9.1-12.4); Platelet Count 140 K/mm3 (150-400); RDW Coefficient Variation 17.2 % (11.7-14.2); RDW Standard Deviation 62.2 fL (35.1-46.3); Red Blood Cell Count 2.69 M/mm3 (4.30-5.90); White Blood Cell Count 4.82 K/mm3 (4.00-11.30)
[2019-01-12 04:44] LABS: EOSINOPHILS PERCENT AUTO 0 % (0-6); IMMATURE GRAN ABSOLUTE AUTO 0.01 K/mm3 (0.00-0.10); IMMATURE GRAN PERCENT AUTO 0 % (0-1); Mean Corpuscular Volume 98 fL (80-100); NEUTROPHILS ABSOLUTE AUTO 4.11 K/mm3 (1.96-9.15); NEUTROPHILS PERCENT AUTO 85 % (41-73)
[2019-01-12 05:04] LABS: Anion Gap 7 mmol/L (6-16); Blood Urea Nitrogen 25 mg/dL (8-24); Bun/Creatinine Ratio 31.6 (12.0-20.0); CO2, Blood 26 mmol/L (21-32); Calcium, Blood 8.2 mg/dL (8.5-10.1); Chloride, Blood 117 mmol/L (98-108); Creatinine, Blood 0.79 mg/dL (0.60-1.20); Glomerular Filtration Rate >60 (60-); Glucose, Blood 246 mg/dL (70-99); Potassium, Blood 3.9 mmol/L (3.5-5.5); Sodium, Blood 150 mmol/L (136-145)
[2019-01-12 06:19] LABS: BAND PERCENT MAN 11 % (0-8); BASOPHILS PERCENT MAN 0 % (0-2); EOSINOPHILS PERCENT MAN 0 % (0-6); LYMPHOCYTES ABSOLUTE MAN 0.38 K/mm3 (0.84-5.20); LYMPHOCYTES PERCENT MAN 8 % (21-46); MONOCYTES ABSOLUTE MAN 0.04 K/mm3 (0.16-1.47); MONOCYTES PERCENT MAN 1 % (4-13); NEUTROPHILS ABSOLUTE MAN 4.38 K/mm3 (1.96-9.15); SEG NEUTROPHILS PERCENT MAN 80 % (41-73); TOTAL CELLS COUNTED 100
--- NOTE | 2019-01-12 07:30 | NUR ---
RECEIVED REPORT FROM PAIGE CASILLAS, AND ASSUMED CARE OF PT.
--- NOTE | 2019-01-12 08:18 | NUR ---
SHIFT SUMMARY PATIENT ADMITTED EARLIER THIS SHIFT. PATIENT HAS BEEN NONVERBAL THROUGHOUT THE NIGHT BUT WILL TRACK STAFF WITH HIS EYES WHEN THEY ARE IN THE ROOM. PATIENT CAN BE SLIGHTLY IRRITABLE AT TIMES AND WILL ATTEMPT TO SWING HIS ARMS AT STAFF OR HE WILL MOVE HIS ARMS AWAY FROM STAFF. PATIENT ON 4L VIA N/C THROUGHOUT THE NIGHT AND STATED GREATER THAN 92%. BLOOD PRESSURES CHARTED. PATIENT APPEARED TO REST WELL THROUGHOUT THE NIGHT AND DID NOT APPEAR TO BE IN DISTRESS OR PAIN. WOUND CARE PER CURRENT ORDERS. PATIENT TURNED Q2H. IV FLUIDS AND ABX RUNNING PER ORDERS. REPORT GIVEN TO ONCOMING RN.
--- NOTE | 2019-01-12 10:30 | NUR ---
DUKE CATHETER PT WAS ADMITTED WITH A DUKE CATHETER IN PLACE FROM HOME. RECEIVED CALL AND INSTRUCTIONS FROM PATRICIA, INFECTION PREVENTION, TO DISCONTINUE DUKE PT CAME IN WITH AND INSERT ANOTHER DUKE CATHETER. PT HAS LOW URINE OUTPUT THUS FAR THIS SHIFT, CURRENTLY WITH 50 CC OF ANALI COLORED URINE IN THE DUKE THAT WAS DC'D AND FLUSHED NEW DUKE WITH 40 CC OF NORMAL SALINE TO FLUSH AND VERIFY CATHETER IN PLACE. SECURED NEWLY INSERTED DUKE WITH STAT LOCK AND NOTED ANALI COLORED URINE DRAINING EXPECTED.
--- NOTE | 2019-01-12 15:45 | NUR ---
NURSING SUMMARY PATIENT IS NON-VERBAL, GRUNTS, SLEEPY, WAKES EASILY TO VOICE, CONTRACTED. SR-ST ON MONITOR WITH BBB, HR 90'S - 110, TAKES MIDODRINE FOR LOW BP'S. LUNGS COARSE THROUGHOUT, RR 18 - 25 WHILE SLEEPING, 20'S WHILE AWAKE, 4L O2 NC. DUKE IN PLACE WITH SCANT ANALI DRAINAGE THIS AM. PT ADMITTED TO HOSPITAL WITH DUKE IN PLACE, UNSURE WHEN IT WAS LAST CHANGED, DISCONTINUED EXISTING DUKE AND REPLACED WITH A NEW DUKE 14F, TOLERATED WELL, REMAINS WITH LOW URINE OUTPUT. PEG TUBE CURRENTLY USED FOR MEDICATIONS, CONSULT WITH DIETARY TODAY, WILL START ON CYCLIC TUBE FEEDS AT 1700, STARTING WITH ISOSOURCE HN AT 75 ML/HR FOR 1 HOUR, THEN INCREASE TO 135 ML/HR FOR 12 HOURS, THEN DECREASE TO 75 ML/HR FOR 1 HOUR AND STOP AT 0700 TOMORROW MORNING, CONTINUOUS WATER FLUSHES OF 50 ML/HR AROUND THE CLOCK, EVEN WHEN FEEDINGS STOPPED PER NEW ORDER AND VERBAL INSTRUCTIONS FROM JUANIS LAMA. TURNING PT EVERY 2 HOURS. COCCYX WOUND IS STAGE IV WITH PURULENT THICK SLOUGH AND SEROSANGUINOUS DRAINAGE, CLEANED WOUND WITH WOUND GUYLINE OPERATOR AND GUAZE, PLACED A NEW MEPILEX. ABDOMINAL XRAY DONE. RIGHT WRIST IV INFUSING 1/2 NS AT 75 ML/HR, WAS AT BEDSIDE FOR TWO VISITS TODAY.
--- NOTE | 2019-01-12 17:00 | NUR ---
PEG TUBE FEEDING START PEG TUBE WITH NO RESIDUAL, STARTED TUBE FEEDINGS WITH 50 ML WATER FLUSH AND ISOSOURCE FEEDING AT 75 ML FOR ONE HOUR. AT 1800 WILL INCREASE RATE TO 135 ML/HR.
[2019-01-13 04:03] LABS: Hematocrit 27.3 % (37.0-53.0); Hemoglobin 8.1 g/dL (13.5-17.5); Mean Corpuscular HGB 29.2 pg (26.0-34.0); Mean Corpuscular HGB Conc 29.7 g/dL (31.5-36.5); Mean Corpuscular Volume 99 fL (80-100); Platelet Count 186 K/mm3 (150-400); Red Blood Cell Count 2.77 M/mm3 (4.30-5.90); White Blood Cell Count 5.18 K/mm3 (4.00-11.30)
[2019-01-13 04:28] LABS: Anion Gap 8 mmol/L (6-16); Blood Urea Nitrogen 37 mg/dL (8-24); Bun/Creatinine Ratio 53.1 (12.0-20.0); CO2, Blood 25 mmol/L (21-32); Calcium, Blood 8.1 mg/dL (8.5-10.1); Chloride, Blood 118 mmol/L (98-108); Glomerular Filtration Rate >60 (60-); Glucose, Blood 208 mg/dL (70-99); Magnesium, Blood 2.1 mg/dL (1.6-2.4); Phosphorus, Blood 1.7 mg/dL (2.5-4.9); Potassium, Blood 3.7 mmol/L (3.5-5.5); Sodium, Blood 151 mmol/L (136-145)
[2019-01-13 04:49] LABS: BAND PERCENT MAN 12 % (0-8); BASOPHILS PERCENT MAN 0 % (0-2); EOSINOPHILS PERCENT MAN 0 % (0-6); LYMPHOCYTES ABSOLUTE MAN 0.56 K/mm3 (0.84-5.20); LYMPHOCYTES PERCENT MAN 11 % (21-46); MONOCYTES ABSOLUTE MAN 0.25 K/mm3 (0.16-1.47); MONOCYTES PERCENT MAN 5 % (4-13); NEUTROPHILS ABSOLUTE MAN 4.35 K/mm3 (1.96-9.15); SEG NEUTROPHILS PERCENT MAN 72 % (41-73); TOTAL CELLS COUNTED 100
--- NOTE | 2019-01-13 06:45 | NUR ---
SHIFT SUMMARY PATIENT CONTINUES TO BE NON-VERBAL. HOWEVER, PATIENT DID SHAKE HIS HEAD NO ONE TIME IN RESPONSE TO A QUESTION LAST NIGHT. PATIENT WAS A WAKE MOST OF THE NIGHT, HOWEVER PATIENT DID APPEAR TO NAP OCCATIONALL THROUGHOUT THE NIGHT. PEG TUBE FEEDINGS AND FLUSHES RUNNING PER ORDERS. ORAL CARE PROVIDED. PATIENT TURNED Q2H. WOUND CARE PROVIDED. IV FLUIDS AND ABX GIVEN PER ORDERS. VITAL SIGNS CHARTED. WILL CONTINUE TO MONITOR PATIENT AND REPORT TO ONCOMING RN.
--- NOTE | 2019-01-13 08:20 | NUR ---
Assumed Care: Assumed care of pt at approx 0700. VSS. In no apparent sign of distress, but pt appears chronically ill. Pt is non-verbal, and moans w/repositioning, but no s/sx of discomfot at rest. See shift assessment for detailed assessment. Pressure sore on coccyx does not appear worse or improved when compared to pictures in chart. Pt is currently resting in bed with call light within reach. No apparent unmet needs at this time. TF continues to infuse at this time until target volume is reached per orders. Only 30mls of residual removed and replaced. Will discuss possible need for wound care consult with hospitalist today. Will continue to monitor.
--- NOTE | 2019-01-13 08:25 | NUR ---
Update: Cardizem infusing at 10mls/hr and was verified with leanna RN at bedside during report.
[2019-01-13 09:24] LABS: Vancomycin, Random 17.7 ug/mL
--- NOTE | 2019-01-13 13:30 | NUR ---
Pt. is lying in bed and on comfort care, offered prayers andspiritual support.
--- NOTE | 2019-01-13 19:33 | NUR ---
Update: Changed mepilex dressing to coccyx x2 today. Pt has been suctioned periodically t/o the shift for excessive secretions the pt was at risk for aspirating.
--- NOTE | 2019-01-13 22:09 | NUR ---
TRANSFER NOTE PT MED NO TELE STATUS. REPORT CALLED TO MEDICAL FLOOR PAIGE EGAN W @ 2009. PT TO BE TRANSFERED TO ROOM 303 BY BED. PT ALERT, NONVERBAL. NO SIGNS OF DISCOMFORT OR PAIN. COCCYX WOUND CLEANED W/ WOUND CLEANSER SPRAY AND DRESSING CHANGED UPON CARE ASSUMPTION @ 1900. WOUND PHOTO IN CHART. LUNG SOUNDS COARSE T/O. SPO2 > 92% ON 2L NC. RR INCREASES TO 40'S W/ REPOSITIONING THEN SETTLES BACK 30'S AFTER CARE. SCD'S TO BILAT EXTREMITIES. PT NPO. PEG TUBE INFUSING FEEDING PER ORDERS. DUKE CATH PATENT AND DRAINING DARK YELLOW URINE.
[2019-01-14 04:45] LABS: Hematocrit 26.9 % (37.0-53.0); Hemoglobin 7.6 g/dL (13.5-17.5); Mean Corpuscular HGB 27.9 pg (26.0-34.0); Mean Corpuscular HGB Conc 28.3 g/dL (31.5-36.5); Mean Corpuscular Volume 99 fL (80-100); Mean Platelet Volume 10.8 fL (9.1-12.4); Platelet Count 201 K/mm3 (150-400); RDW Coefficient Variation 17.7 % (11.7-14.2); RDW Standard Deviation 64.2 fL (35.1-46.3); Red Blood Cell Count 2.72 M/mm3 (4.30-5.90)
[2019-01-14 05:06] LABS: Anion Gap 7 mmol/L (6-16); Blood Urea Nitrogen 36 mg/dL (8-24); Bun/Creatinine Ratio 57.4 (12.0-20.0); CO2, Blood 27 mmol/L (21-32); Calcium, Blood 7.8 mg/dL (8.5-10.1); Chloride, Blood 122 mmol/L (98-108); Creatinine, Blood 0.63 mg/dL (0.60-1.20); Glomerular Filtration Rate >60 (60-); Glucose, Blood 266 mg/dL (70-99); Magnesium, Blood 1.9 mg/dL (1.6-2.4); Potassium, Blood 3.2 mmol/L (3.5-5.5); Sodium, Blood 156 mmol/L (136-145)
[2019-01-14 05:50] LABS: BAND PERCENT MAN 6 % (0-8); BASOPHILS PERCENT MAN 0 % (0-2); EOSINOPHILS PERCENT MAN 2 % (0-6); LYMPHOCYTES ABSOLUTE MAN 0.25 K/mm3 (0.84-5.20); LYMPHOCYTES PERCENT MAN 5 % (21-46); MONOCYTES ABSOLUTE MAN 0.05 K/mm3 (0.16-1.47); MONOCYTES PERCENT MAN 1 % (4-13); MYELOCYTE ABSOLUTE MAN 0.05 K/mm3 (0.00-0.00); MYELOCYTE PERCENT MAN 1 % (0-0); TOTAL CELLS COUNTED 100
[2019-01-14 05:51] LABS: NEUTROPHILS ABSOLUTE MAN 4.64 K/mm3 (1.96-9.15); SEG NEUTROPHILS PERCENT MAN 85 % (41-73)
--- NOTE | 2019-01-14 06:08 | NUR ---
SHIFT SUMMARY PT PCU TRANSFER THIS EVENING. NONVERBAL. MOANS AT TIMES, ESPECIALLY WHEN TURNING PT OR PROVIDING CARE FOR PT. PT BECOMES VERY AGITATED W/ CARE. RESPIRATIONS INCREASE TO THE 40'S AT THIS TIME BUT DECREASE INTO THE 20'S-30'S WHEN CALM. PT'S SOUNDS IF HE NEEDS TO COUGH SOMETHING UP BUT IS UNABLE. ATTEMPTED TO SUCTION MULTIPLE TIMES AND PT WOULD NOT ALLOW. ORAL CARE PROVIDED. SLIGHTLY FEBRILE THIS EVENING. MEDICATED X 1 W/ TYLENOL THROUGH PEG TUBE. PT TOLERATED WELL. RESIDUAL 20 ML OR LESS THROUGHOUT THE NIGHT. TUBE FEEDING CONTINUES TO RUN AT THIS TIME. VERY LARGE SACRAL STAGE 4 SACRAL ULCER. PICTURES IN CHART. CLEANED W/ WOUND CLEANSER AND REPLACED MEPILEX X 2 THIS SHIFT. PT HAS LOOSE LACTULOSE SMELLING STOOL. INCONTINENT. VSS. WILL CONTINUE TO MONITOR.
--- NOTE | 2019-01-14 08:23 | NUR ---
PATIENT DID NOT EAT BREAKFAST THIS SHIFT DUE TO BEING NPO AT THIS TIME.
--- NOTE | 2019-01-14 12:24 | NUR ---
PATIENT DID NOT EAT LUNCH THIS SHIFT DUE TO BEING NPO AT THIS TIME.
[2019-01-14 16:54] LABS: Albumin, Blood 1.8 g/dL (3.4-5.0); Anion Gap 6 mmol/L (6-16); Blood Urea Nitrogen 31 mg/dL (8-24); Bun/Creatinine Ratio 54.2 (12.0-20.0); CO2, Blood 28 mmol/L (21-32); Calcium, Blood 7.9 mg/dL (8.5-10.1); Chloride, Blood 121 mmol/L (98-108); Creatinine, Blood 0.57 mg/dL (0.60-1.20); Glomerular Filtration Rate >60 (60-); Glucose, Blood 182 mg/dL (70-99); Phosphorus, Blood 1.6 mg/dL (2.5-4.9); Sodium, Blood 155 mmol/L (136-145)
--- NOTE | 2019-01-14 18:27 | NUR ---
SHIFT SUMMARY PT HAS HAD NO ACUTE CHANGES THIS SHIFT, HAS HAD DIARRHEA T/O SHIFT. REPOS Q2, MEDICATED PER JAN FOR PAIN INDICATIONS, WILL CONT TO MONITOR UNTIL REPORT GIVEN TO NOC RN.
[2019-01-15 04:56] LABS: Hemoglobin 7.1 g/dL (13.5-17.5); Mean Corpuscular HGB 28.6 pg (26.0-34.0); Mean Corpuscular HGB Conc 28.4 g/dL (31.5-36.5); Mean Corpuscular Volume 101 fL (80-100); Mean Platelet Volume 10.9 fL (9.1-12.4); Platelet Count 193 K/mm3 (150-400); RDW Coefficient Variation 17.5 % (11.7-14.2); Red Blood Cell Count 2.48 M/mm3 (4.30-5.90); White Blood Cell Count 4.76 K/mm3 (4.00-11.30)
[2019-01-15 05:14] LABS: Anion Gap 6 mmol/L (6-16); Blood Urea Nitrogen 30 mg/dL (8-24); Bun/Creatinine Ratio 56.3 (12.0-20.0); CO2, Blood 26 mmol/L (21-32); Calcium, Blood 7.5 mg/dL (8.5-10.1); Chloride, Blood 117 mmol/L (98-108); Creatinine, Blood 0.53 mg/dL (0.60-1.20); Glomerular Filtration Rate >60 (60-); Glucose, Blood 355 mg/dL (70-99); Phosphorus, Blood 1.6 mg/dL (2.5-4.9); Potassium, Blood 3.4 mmol/L (3.5-5.5); Sodium, Blood 149 mmol/L (136-145)
[2019-01-15 06:09] LABS: BAND PERCENT MAN 5 % (0-8); BASOPHILS ABSOLUTE MAN 0.04 K/mm3 (0.00-0.23); BASOPHILS PERCENT MAN 1 % (0-2); EOSINOPHILS ABSOLUTE MAN 0.04 K/mm3 (0.00-0.68); EOSINOPHILS PERCENT MAN 1 % (0-6); LYMPHOCYTES ABSOLUTE MAN 0.61 K/mm3 (0.84-5.20); LYMPHOCYTES PERCENT MAN 13 % (21-46); MONOCYTES ABSOLUTE MAN 0.19 K/mm3 (0.16-1.47); MONOCYTES PERCENT MAN 4 % (4-13); NEUTROPHILS ABSOLUTE MAN 3.85 K/mm3 (1.96-9.15); SEG NEUTROPHILS PERCENT MAN 76 % (41-73); TOTAL CELLS COUNTED 100
--- NOTE | 2019-01-15 06:51 | NUR ---
SHIFT SUMMARY PT APPEARS VERY CHRONICALLY ILL. NONVERBAL. MOANS AT TIMES. CONTINUES TO HAVE VERY LOOSE STOOL, ALL BOWEL CARE HELD THIS EVENING. RECTAL TUBE IN PLACE, DRAINED 750 ML BROWN LIQUID STOOL. LEAKS SOME AROUND RECTAL TUBE. REQUIRES FREQUENT TURNS AND CHANGES. LARGE SACRAL WOUND, STAGE 4. GOES ALL THE WAY TO THE RECTUM SO DIFFICULT TO KEEP CLEAN. WOUND CLEANSER USED AND MEPILEX CHANGED NEEDED THROUGHOUT THE NIGHT. DUKE CATH IN PLACE, PATENT AND DRAINING. TUBE FEEDING CONTINUES TO RUN 150 ML/HR WITH ONLY ONE HOUR REMAINING BEFORE ORDERED TOTAL VOLUME. PT TOLERATED WELL WITH VERY LITTLE RESIDUAL. METAPORT ACCESSED IN R CHEST WALL. PT BECOMES VERY ANXIOUS WITH ANY CARE, RESPIRATIONS INCREASE TO THE 40'S WHEN ANXIOUS. CONTINUE TO BE HIGH IN THE 20'S EVEN AT REST. LUNG SOUNDS COARSE. SOUNDS IF PT NEEDS TO COUGH UP SOME SPUTUM BUT IS UNABLE. PT WILL NOT ALLOW SUCTIONING. BLOOD PRESSURE A BIT LOW THIS AM WITH SYSTOLIC BELOW 100. MIDIDRINE GIVEN. PT RESTING IN BED AT THIS TIME. WILL CONTINUE TO MONITOR.
--- NOTE | 2019-01-15 08:19 | NUR ---
PATIENT DID NOT EAT BREAKFAST THIS SHIFT DUE TO BEING NPO AT THIS TIME.
[2019-01-15 09:04] LABS: Vancomycin, Trough 22.2 ug/mL (5.0-10.0)
[2019-01-15 12:56] LABS: Stool Occult Blood Guaiac 1 Neg (Neg)
--- NOTE | 2019-01-15 14:22 | NUR ---
CONSULT TO DR KINNEY R/T SACRAL WOUND CONFIRMED WITH HIS ANSW SERV PER DR JACOB REQUEST.
--- NOTE | 2019-01-15 17:58 | NUR ---
PATIENT DID NOT EAT DINNER THIS SHIFT DUE TO BEING NPO AT THIS TIME.
--- NOTE | 2019-01-15 18:28 | NUR ---
SUMMARY PT IS NONVERBAL, HX TBI/STROKE, OPENS EYES, MAKES GOOD EYE CONTACT HOWEVER DOES NOT FOLLOW DIRECTION/COMMANDS, ABLE TO NOD YES/NO TO BASIC QUESTIONS. THIS AM HE WAS NOT ANWERING TO QUESTIONS OF PAIN HE APPEARED CALM/COMFORTABLE HOWEVER RESP RATE ELEVATED APPROX 40/MIN, DR JACOB SUGGEST GIVING DOSE OF FENTANYL. HAS BEEN EFFECTIVE, RESP RATE DECREASED & PT HAS NODDED YES TO COMFORT. DR KINNEY CALL R/T WOUND CARE CONSULT, STATE NO SURG, NO WOUND VAC, CONTINUE DRY FOAM DRSG & KEEP CLEAN POSSIBLE, DR JACOB UPDATED. RECTAL TUBE CONTINUES, YELLOW LIQUID STOOL, BOWEL MEDS HELD, DR AWARE. DUKE CATH PATENT. TURNING q2 & SUPPORTING WITH PILLOWS. VSS. PEG TUBE PATENT.
[2019-01-16 04:59] LABS: BASOPHILS ABSOLUTE AUTO 0.01 K/mm3 (0.00-0.23); BASOPHILS PERCENT AUTO 0 % (0-2); EOSINOPHILS ABSOLUTE AUTO 0.16 K/mm3 (0.00-0.68); EOSINOPHILS PERCENT AUTO 4 % (0-6); Hemoglobin 7.3 g/dL (13.5-17.5); IMMATURE GRAN ABSOLUTE AUTO 0.09 K/mm3 (0.00-0.10); IMMATURE GRAN PERCENT AUTO 2 % (0-1); LYMPHOCYTES ABSOLUTE AUTO 0.49 K/mm3 (0.84-5.20); LYMPHOCYTES PERCENT AUTO 12 % (21-46); MONOCYTES ABSOLUTE AUTO 0.31 K/mm3 (0.16-1.47); MONOCYTES PERCENT AUTO 8 % (4-13); Mean Corpuscular HGB 29.1 pg (26.0-34.0); Mean Corpuscular HGB Conc 29.2 g/dL (31.5-36.5); Mean Corpuscular Volume 100 fL (80-100); NEUTROPHILS ABSOLUTE AUTO 3.08 K/mm3 (1.96-9.15); NEUTROPHILS PERCENT AUTO 74 % (41-73); Platelet Count 219 K/mm3 (150-400); RDW Coefficient Variation 17.2 % (11.7-14.2); RDW Standard Deviation 63.7 fL (35.1-46.3); Red Blood Cell Count 2.51 M/mm3 (4.30-5.90); White Blood Cell Count 4.14 K/mm3 (4.00-11.30)
[2019-01-16 05:26] LABS: Albumin, Blood 1.5 g/dL (3.4-5.0); Anion Gap 8 mmol/L (6-16); Blood Urea Nitrogen 28 mg/dL (8-24); Bun/Creatinine Ratio 51.5 (12.0-20.0); CO2, Blood 27 mmol/L (21-32); Calcium, Blood 7.5 mg/dL (8.5-10.1); Chloride, Blood 111 mmol/L (98-108); Creatinine, Blood 0.54 mg/dL (0.60-1.20); Glomerular Filtration Rate >60 (60-); Glucose, Blood 293 mg/dL (70-99); Phosphorus, Blood 2.4 mg/dL (2.5-4.9); Potassium, Blood 3.3 mmol/L (3.5-5.5); Sodium, Blood 146 mmol/L (136-145)
--- NOTE | 2019-01-16 05:27 | NUR ---
SHIFT SUMMARY PT NONVERBAL. MOANS AT TIMES. WAS FURROWING BROW AND MOANING AT ONE TIME, MEDICATED X 1 W/ 25 MCG FENTANYL. APPEARED TO BE EFFECTIVE. PT SLEPT OFF AND ON. RECTAL TUBE REMAINS IN PLACE. CONTINUES TO HAVE LIQUID YELLOW/BROWN STOOL BUT APPEARS TO BE SLOWING DOWN. LARGE WOUND TO SACRAL AREA, DRESSING CHANGED AND WOUND CLEANSER USED FREQUENTLY DUE TO LOOSE STOOL.
[2019-01-16 11:38] LABS: Vancomycin, Trough 18.2 ug/mL (5.0-10.0)
--- NOTE | 2019-01-16 11:51 | NUR ---
Met. Pt lying in bed ,pt. is in comfort care, so I noffered prayeres and blessed pt.
--- NOTE | 2019-01-16 19:38 | NUR ---
SHIFT SUMMARY- PT REPOSITIONED FREQUENTLY T/O THE SHIFT. PT HAS STAGE 4 PRESSURE ULCER ON THE COCCYX, BANDAGE CHANGED FREQUENTLY TODAY WITH EACH MAKEDA CARE. RECTAL TUBE PATENT AND DRAINING LEAKING ARROUND THE INSERTION, DUKE PATENT AND DRAINING CATH CARE PERFORMED, PT HAS SOME SCROTAL EDEMA THAT PREVENTS FULLY PULLING BACK THE FORESKIN FOR COMPLETE MAKEDA CARE. PT HAD ONE VISUAL EPISODE OF PAIN GAVE TYLENOL VIA PT AND THIS SEEMED TO MANAGE HIS PAIN WELL. PEG TUBE PATENT AND FEEDING IS RUNNING. PT HAS THE CALL LIGHT IN REACH, DOES NOT CALL.
[2019-01-17 04:49] LABS: BASOPHILS ABSOLUTE AUTO 0.01 K/mm3 (0.00-0.23); BASOPHILS PERCENT AUTO 0 % (0-2); EOSINOPHILS ABSOLUTE AUTO 0.11 K/mm3 (0.00-0.68); EOSINOPHILS PERCENT AUTO 2 % (0-6); Hematocrit 25.1 % (37.0-53.0); Hemoglobin 7.4 g/dL (13.5-17.5); IMMATURE GRAN PERCENT AUTO 4 % (0-1); LYMPHOCYTES ABSOLUTE AUTO 0.53 K/mm3 (0.84-5.20); LYMPHOCYTES PERCENT AUTO 12 % (21-46); MONOCYTES ABSOLUTE AUTO 0.37 K/mm3 (0.16-1.47); MONOCYTES PERCENT AUTO 8 % (4-13); Mean Corpuscular HGB 28.8 pg (26.0-34.0); Mean Corpuscular HGB Conc 29.5 g/dL (31.5-36.5); Mean Corpuscular Volume 98 fL (80-100); NEUTROPHILS ABSOLUTE AUTO 3.38 K/mm3 (1.96-9.15); NEUTROPHILS PERCENT AUTO 74 % (41-73); Platelet Count 249 K/mm3 (150-400); RDW Coefficient Variation 17.1 % (11.7-14.2); RDW Standard Deviation 61.7 fL (35.1-46.3); Red Blood Cell Count 2.57 M/mm3 (4.30-5.90)
[2019-01-17 05:10] LABS: Albumin, Blood 1.5 g/dL (3.4-5.0); Anion Gap 7 mmol/L (6-16); Blood Urea Nitrogen 23 mg/dL (8-24); Bun/Creatinine Ratio 43.9 (12.0-20.0); CO2, Blood 29 mmol/L (21-32); Calcium, Blood 7.5 mg/dL (8.5-10.1); Chloride, Blood 107 mmol/L (98-108); Creatinine, Blood 0.52 mg/dL (0.60-1.20); Glomerular Filtration Rate >60 (60-); Glucose, Blood 342 mg/dL (70-99); Phosphorus, Blood 2.9 mg/dL (2.5-4.9); Potassium, Blood 3.5 mmol/L (3.5-5.5); Sodium, Blood 143 mmol/L (136-145)
--- NOTE | 2019-01-17 05:52 | NUR ---
VSS, AFEBRILE, ALERT AT TIMES, NON-VERBAL, MAKES ONLY GUTTERAL SOUNDS, TUBE FEEDING TOLERATED WELL, STAGE IV ULCER ON COCCYX IS INVOLVED WITH BM AND DIFFICULT TO KEEP CLEAN, RECTAL TUBE LEAKS, CHRONIC DUKE FOR RETENTION, CBG Q 6 HRS, SCROTAL EDEMA IS UNCHANGED DURING THIS SHIFT, CONTRACTED UE AND LE, CAN BE COMBATIVE WITH CAREGIVERS AT TIMES, HEAD OF BED ELEVATED TO 45 DEGREES, NO SIGNIFICANT CHANGES NOTE THIS SHIFT.
--- NOTE | 2019-01-17 10:33 | NUR ---
Patient gave me permission to help with his care on 01/18/19.
--- NOTE | 2019-01-17 11:53 | NUR ---
Pt. in bed resting , the is in the room on visit, encouraged pt. and offered some prayers
--- NOTE | 2019-01-17 17:24 | NUR ---
TUBE FEEDINGS STARTED @150ML/HR
--- NOTE | 2019-01-17 18:12 | NUR ---
SHIFT SUMMARY NON VERBAL. TUBE FEEDINGS. RECTAL TUBE. STAGE 4 DECUBITUS. CANCER PT. TURN Q2. PAIN WITH MOVEMENT AND ATTENDS CHANGES. LIMITED CODE. LIVES AT HOME WITH SPOUSE. POSSIBLE DISCHARGE HOME TOMORROW.
[2019-01-18 04:43] LABS: BASOPHILS ABSOLUTE AUTO 0.01 K/mm3 (0.00-0.23); BASOPHILS PERCENT AUTO 0 % (0-2); Hematocrit 23.8 % (37.0-53.0); Hemoglobin 7.1 g/dL (13.5-17.5); LYMPHOCYTES ABSOLUTE AUTO 0.63 K/mm3 (0.84-5.20); LYMPHOCYTES PERCENT AUTO 12 % (21-46); MONOCYTES ABSOLUTE AUTO 0.37 K/mm3 (0.16-1.47); MONOCYTES PERCENT AUTO 7 % (4-13); Mean Corpuscular HGB 28.7 pg (26.0-34.0); Mean Corpuscular HGB Conc 29.8 g/dL (31.5-36.5); Mean Corpuscular Volume 96 fL (80-100); Mean Platelet Volume 10.9 fL (9.1-12.4); Platelet Count 307 K/mm3 (150-400); RDW Coefficient Variation 17.1 % (11.7-14.2); RDW Standard Deviation 60.1 fL (35.1-46.3); Red Blood Cell Count 2.47 M/mm3 (4.30-5.90); White Blood Cell Count 5.36 K/mm3 (4.00-11.30)
[2019-01-18 05:01] LABS: Albumin, Blood 1.5 g/dL (3.4-5.0); Anion Gap 7 mmol/L (6-16); Blood Urea Nitrogen 22 mg/dL (8-24); CO2, Blood 30 mmol/L (21-32); Calcium, Blood 7.5 mg/dL (8.5-10.1); Chloride, Blood 106 mmol/L (98-108); Creatinine, Blood 0.56 mg/dL (0.60-1.20); Glomerular Filtration Rate >60 (60-); Glucose, Blood 254 mg/dL (70-99); Phosphorus, Blood 2.7 mg/dL (2.5-4.9); Potassium, Blood 3.7 mmol/L (3.5-5.5); Sodium, Blood 143 mmol/L (136-145)
--- NOTE | 2019-01-18 05:24 | NUR ---
VSS, AFEBRILE, ALERT BUT UNABLE TO ASSESS MENTATION, NON-VERBAL, CONTRACTED UPPER EXTREMITIES/LEGS, TUBE FEEDING, LARGE STAGE 4 ULCER ON COCCYX, RECTAL TUBE, DUKE, KEEP HOB ELEVATED 45 DEGREES, IS HOME CAREGIVER, TOLERATING IV ATBX W/OUT ADVERSE EFFECTS
[2019-01-18 05:48] LABS: EOSINOPHILS ABSOLUTE AUTO 0.08 K/mm3 (0.00-0.68); EOSINOPHILS PERCENT AUTO 2 % (0-6); IMMATURE GRAN PERCENT AUTO 4 % (0-1); NEUTROPHILS ABSOLUTE AUTO 4.07 K/mm3 (1.96-9.15); NEUTROPHILS PERCENT AUTO 76 % (41-73)
[2019-01-18 06:50] LABS: BAND PERCENT MAN 8 % (0-8); BASOPHILS PERCENT MAN 0 % (0-2); EOSINOPHILS ABSOLUTE MAN 0.05 K/mm3 (0.00-0.68); EOSINOPHILS PERCENT MAN 1 % (0-6); LYMPHOCYTES ABSOLUTE MAN 0.42 K/mm3 (0.84-5.20); LYMPHOCYTES PERCENT MAN 8 % (21-46); MONOCYTES ABSOLUTE MAN 0.05 K/mm3 (0.16-1.47); MONOCYTES PERCENT MAN 1 % (4-13); NEUTROPHILS ABSOLUTE MAN 4.82 K/mm3 (1.96-9.15); SEG NEUTROPHILS PERCENT MAN 82 % (41-73); TOTAL CELLS COUNTED 100
--- NOTE | 2019-01-18 11:22 | NUR ---
Administered meds via peg tube with adjunct nursing faculty, Betzaida Devries, at 1045. Computer timed out before SRN was able to submit.
--- NOTE | 2019-01-18 13:44 | NUR ---
Met pt in bed and his nurse in the room attending to his needs the spouse is in the room on visit prayed and blessed pt.
--- NOTE | 2019-01-18 18:51 | NUR ---
SHIFT SUMMARY MOANING INTERMITTENTLY THROUGHOUT DAY. STOOL SEEPING INTO DECUBITUS CONTINUOUSLY. ATTENDS AND MEPILEX CHANGES THROUGHOUT DAY. DUKE IN PLACE DRAINING CLEAR YELLOW URINE. RECTAL TUBE DRAINING BROWN STOOL. MEDICATTED FOR PAIN MULTIPLE TIMES DUE TO GRIMACING AND TENSE MOVEMENTS. SPOUSE AT BEDSIDE FOR ABOUT 1 HOUR TODAY. TURN Q2 AND KEPT OFF BONY PROMINENCES.
--- NOTE | 2019-01-19 05:18 | NUR ---
VSS, AFEBRILE, PT RESPONDS WELL TO MIDODRINE AND BP STABLE AT THIS TIME. TUBE FEEDING CONTINUES PER ORDER, PT TOLERATING IV ABTX W/OUT ADVERSE EFFECTS, RECTAL TUBE IN PLACE, DUKE DRAINING ADEQUATELY, DRESSING ON COCCYX CHANGED. NO COMPLAINTS.
[2019-01-19 06:08] LABS: Hematocrit 23.2 % (37.0-53.0); Hemoglobin 6.9 g/dL (13.5-17.5)
[2019-01-19 06:33] LABS: Albumin, Blood 1.5 g/dL (3.4-5.0); Anion Gap 6 mmol/L (6-16); Blood Urea Nitrogen 23 mg/dL (8-24); CO2, Blood 31 mmol/L (21-32); Calcium, Blood 7.7 mg/dL (8.5-10.1); Chloride, Blood 106 mmol/L (98-108); Creatinine, Blood 0.54 mg/dL (0.60-1.20); Glomerular Filtration Rate >60 (60-); Glucose, Blood 286 mg/dL (70-99); Phosphorus, Blood 2.5 mg/dL (2.5-4.9); Potassium, Blood 3.9 mmol/L (3.5-5.5); Sodium, Blood 143 mmol/L (136-145)
--- NOTE | 2019-01-19 14:25 | NUR ---
discharge DR JACOB IN THIS AM TO SEE PT/ DISCUSS [place] & STATE OK FOR D/C HOME TODAY. AGREES, STATE FEELS READY TO TAKE PT HOME. DR DISCUSS RECTAL TUBE , DECIDED THAT HE WILL D/C HOME WITH TUBE IN PLACE, [facility] & DR MARCIAL TO MANAGE & DECIDE WHEN APPROPRIATE FOR REMOVAL. HE WILL ALSO GO HOME WITH DUKE CATH IN PLACE. PEG TUBE CLAMPED. MEDIPORT D/C INTACT. BASIC D/C INSTRUCT REVIEWED WITH PT'S , SHE IS GOING HOME TO PREPARE & READY TO RECIEVE PT. HARD COPY INSTRUCT WILL BE SENT HOME WITH PT BELONGINGS. CONTACT LENS POLISHER AGGIE Serrato [facility] HOME APPROX 1630. WOUND CARE COCCXY/SACRAL ULCER PROVIDED PRIOR TO D/C.
--- NOTE | 2019-01-19 14:32 | NUR ---
Pt. is still waiting for discharge to go home ,prayed and blessed pt.
[2019-01-19] MEDS ORDERED: ALBU2.5V5 NEB (14:58)
[2019-01-19] MEDS ORDERED: JUVEN PACKET1 EACH PT (15:00)
[2019-01-19] MEDS ORDERED: AMOCLA250S PT (15:00)
[2019-01-19] MEDS ORDERED: FEROSUL220 MG/5 M PT (15:02)
[2019-01-19] MEDS ORDERED: LACTULOSE20 GM/30 M PT (15:03)
[2019-01-19] MEDS ORDERED: Culturelle1 CAP PT (15:06)
[2019-01-19] MEDS ORDERED: SODIUM PHOSPHA PT (15:09)
== END 2019-01-19 17:20 | disposition home health service (06) | DRG 871 ==
LOC: ER 18:39 → PCU 22:01 → MEDS 22:01 → PCU 23:04 → MEDS 01-13 23:30 → ENPENDDIS 01-19 11:56 → MEDS 01-19 17:20
PROVIDERS: Emergency Medicine; Hospitalist; Internal Medicine; Nurse Practitioner Acute Care; Pharmacist; ADMIT Internal Medicine
PROC: 5A09357 Assistance with Respiratory Ventilation, Less than 24 Consecutive Hours, Continuous Positive Airway Pressure (ICD-10-PCS; principal; 2019-01-11)
PROC: 0D9P80Z Drainage of Rectum with Drainage Device, Via Natural or Artificial Opening Endoscopic (ICD-10-PCS; 2019-01-11)
DX: A41.9 Sepsis, unspecified organism (principal); L89.154 Pressure ulcer of sacral region, stage 4; J69.0 Pneumonitis due to inhalation of food and vomit; J96.21 Acute and chronic respiratory failure with hypoxia; C78.01 Secondary malignant neoplasm of right lung; E46 Unspecified protein-calorie malnutrition; E87.0 Hyperosmolality and hypernatremia; E87.2 Acidosis; Z68.1 Body mass index [BMI] 19.9 or less, adult; R65.20 Severe sepsis without septic shock; D63.8 Anemia in other chronic diseases classified elsewhere; E11.59 Type 2 diabetes mellitus with other circulatory complications; E11.622 Type 2 diabetes mellitus with other skin ulcer; E11.65 Type 2 diabetes mellitus with hyperglycemia; E78.5 Hyperlipidemia, unspecified; F03.90 Unspecified dementia, unspecified severity, without behavioral disturbance, psychotic disturbance, mood disturbance, and anxiety; K56.41 Fecal impaction; M10.9 Gout, unspecified; R13.10 Dysphagia, unspecified; R62.7 Adult failure to thrive; Z74.01 Bed confinement status; Z87.820 Personal history of traumatic brain injury; Z90.5 Acquired absence of kidney; Z93.1 Gastrostomy status; Z86.711 Personal history of pulmonary embolism; E87.6 Hypokalemia; E83.39 Other disorders of phosphorus metabolism; Z85.528 Personal history of other malignant neoplasm of kidney; D50.9 Iron deficiency anemia, unspecified; N40.0 Benign prostatic hyperplasia without lower urinary tract symptoms; Z93.0 Tracheostomy status; Z87.891 Personal history of nicotine dependence; Z95.828 Presence of other vascular implants and grafts; I69.320 Aphasia following cerebral infarction
CPT/HCPCS: 36415; 36416; 71045; 74018; 80048; 80053; 80069; 80202; 81001; 82272; 82728; 82947; 83540; 83550; 83605; 83735; 83880; 84100; 84145; 84484; 85014; 85018; 85025; 86850; 86870; 86880; 86900; 86901; 87040; 87077; 87086; 87186; 93005; 93010; 94640; 94644; 94660; 94760; 94762; 96361; 96365; 96366; 96375; 99285-25; G0378; J1100; J1642; J1815; J2405; J2543; J3010; J3370; J3480; J7030; J7070